=== PATIENT | female | born 1965 | race Caucasian/White ===

== ENCOUNTER 2016-10-30 16:29 | Observation (INO) | payer SELFPAY ==
[~2016-10-30] VITALS: Ht 165.1 cm; Wt 85.7 kg
--- NOTE | 2016-10-30 00:30 | NUR ---
CONSENTS SIGNED FOR D&C IN THE AM AND CYTOTEC GIVEN PER ORDER BY DR. PETTIT.
--- NOTE | 2016-10-30 16:16 | NUR ---
1540-RECD TO ROOM 2512. 1600-TEMP 101.8, PULSE 116, RESP 24, O2 SAT 100%, BP 145/83. 1605-TEMP CALLED TO BENNY DAVILA APRN FOR DR BUTCHER. ORDERS RECD TO SEND PATIENT TO THE ER FOR EVALUATION.
--- NOTE | 2016-10-30 16:18 | NUR ---
1610-PATIENT REPORT CALLED TO ER STAFF. 1615-TO ER PER WHEELCHAIR WITH ARI GARDINER RN.
--- NOTE | 2016-10-30 17:50 | NUR ---
PATIENT TO ROOM AT THIS TIME. ADMITTED AND ASSESSED BY JOYCE ABEL. NO COMPLAINTS AT THIS TIME. CALL LIGHT WITHIN REACH.
[2016-10-30 18:01] VITALS: BP 129/75; Ht 165.1 cm; Wt 85.7 kg
[2016-10-30 18:10] LABS: BASOPHILS 0.2 % (0.0-2.0); EOSINOPHILS 0 % (0-7); HEMATOCRIT 21.7 % (36.0-48.0); IMMATURE GRANULOCYTES 0.3 % (0-5); LYMPHOCYTES 13.6 % (15-50); MCHC 27.2 g/dL (31.0-37.0); MEAN PLATELET VOLUME 10.3 fL (7.4-10.4); MONOCYTES 8.9 % (2-11); PLATELET COUNT 242 10x3/uL (130-400); RBC 3.24 10x6/uL (4.00-5.40); RDW 18.7 % (11.5-14.5); WBC 6.6 10x3/uL (4.8-10.8)
[2016-10-30 18:31] LABS: HEMOGLOBIN 5.9 g/dL (12-16); MCH 18.2 pg (26.0-34.0)
--- NOTE | 2016-10-30 18:45 | NUR ---
PATIENT IV STARTED BY JOYCE ABEL. EXPLAINED TO PATIENT TO FILL BLADDER FOR US. VERBALIZED UNDERSTANDING. NO PROBLEMS AT THIS TIME. CALL LIGHT WITHIN REACH. FAMILY AT BEDSIDE.
--- NOTE | 2016-10-30 19:00 | NUR ---
PATIENT IN BED VISITING WITH FAMILY. AAOX4. RR EVEN AND UNLABORED. 0 S/S OF DISTRESS. O2 @ 2L VIA NC. DENIES PAIN AT THIS TIME. IV TO RIGHT HAND SL WITH NO REDNESS OR SWELLING. SRX1. BED LOW. CALL LIGHT WITHIN REACH.
[2016-10-30 19:19] LABS: APTT 27.9 SECONDS (22.8-39.4)
[2016-10-30 19:21] LABS: INR 1.08 (0.85-1.17); PROTIME 13.8 SECONDS (11.6-15.0)
[2016-10-30 19:43] LABS: % SATURATION 1 % (15-55); IRON 10 ug/dl (35-150); TOTAL IRON BIND CAPACITY 660 ug/dl (260-445)
[2016-10-30 19:44] LABS: UNSAT IRON BIND CAPACITY 650 ug/dl (150-375)
[2016-10-30 20:00] VITALS: BP 121/65
--- NOTE | 2016-10-30 22:00 | NUR ---
PLACED TELEMETRY AND SCD'S ON PATIENT PER ORDER. INITIATED 1ST UNIT PRBC. ALL VITALS WNL. AT THIS TIME.
[2016-10-31 00:28] VITALS: BP 102/60
--- NOTE | 2016-10-31 00:30 | NUR ---
CONSENTS SIGNED FOR D&C IN THE AM AND CYTOTEC GIVEN PER ORDER BY DR. PETTIT.
--- NOTE | 2016-10-31 01:15 | NUR ---
2ND UNIT PRBC INITIATED. ALL VITALS WNL.
--- NOTE | 2016-10-31 01:45 | NUR ---
PATIENT VERY NAUSEATED AND CRAMPING BADLY FROM CYTOTEC. ZOFRAN AND TYLENOL GIVEN PER TELEPHONE ORDER. WILL REASSESS.
--- NOTE | 2016-10-31 03:20 | NUR ---
2ND UNIT PRBC COMPLETE. ALL VITALS WNL. PATIENT STATES THAT NAUSEA AND CRAMPS ARE GONE. NOW RESTING QUIETLY WITH NO COMPLAINTS.
[2016-10-31 06:27] LABS: BASOPHILS 0.2 % (0.0-2.0); EOSINOPHILS 0.2 % (0-7); HEMATOCRIT 25.7 % (36.0-48.0); IMMATURE GRANULOCYTES 0.5 % (0-5); LYMPHOCYTES 12.4 % (15-50); MCH 20.4 pg (26.0-34.0); MCHC 29.6 g/dL (31.0-37.0); MEAN PLATELET VOLUME 10.3 fL (7.4-10.4); MONOCYTES 7.7 % (2-11); PLATELET COUNT 233 10x3/uL (130-400); RBC 3.72 10x6/uL (4.00-5.40); RDW 19.7 % (11.5-14.5); WBC 6.6 10x3/uL (4.8-10.8)
[2016-10-31 06:46] LABS: HEMOGLOBIN 7.6 g/dL (12-16); MCV 69.1 fL (80.0-100.0)
[2016-10-31 06:52] LABS: CALC OSMOLALITY 272 mosm/kg (275-300); CALCIUM 7.9 mg/dL (8.5-10.1); CARBON DIOXIDE 24.3 mmol/L (21.0-32.0); CHLORIDE - SERUM 103 mmol/L (98-107); CREATININE - SERUM 0.8 mg/dL (0.6-1.3); GLUCOSE 122 mg/dL (74-106); POTASSIUM - SERUM 3.6 mmol/L (3.5-5.1); SODIUM 137 mmol/L (136-145); UREA NITROGEN 8 mg/dL (7-18); eGFR NON AFRICAN AMERICAN 81 mL/min (90-120)
--- NOTE | 2016-10-31 07:15 | NUR ---
REPORT RECEIVED FROM CLAIM CLERK NURSE. CALL LIGHT IN REACH.
[2016-10-31 08:09] VITALS: BP 123/68
--- NOTE | 2016-10-31 08:13 | NUR ---
ASSESSMENT COMPLETED. REFUSES SCDs AT THIS TIME. TELEMETRY OFF SO PATIENT CAN TAKE SHOWER. CALL LIGHT IN REACH. WILL CONTINUE WITH PLAN OF CARE.
--- NOTE | 2016-10-31 10:17 | NUR ---
PREOP MEDS ADMINISTERED. CALL LIGHT IN REACH.
[2016-10-31 11:00] VITALS: BP 126/65
--- NOTE | 2016-10-31 11:00 | NUR ---
PRBC INITIATED PER COLTEN JOHNSON. TO OR VIA BED.
--- NOTE | 2016-10-31 11:00 | NUR ---
PT. AOX4 WITH FAMILY IN THE ROOM. RESP. EVEN AND NONLABORED WITH LUNG SOUNDS CLEAR ABD SOFT AND ROUNDED BS+O3BHDAC PT.DENIES NEEDS AT THIS TIME. PT. IN FOR VAGINAL BLEEDING. 1 UNIT PRBC'S STARTED WITHOUT DIFFICULTY AT THIS TIME. OR TEAM HERE TO TAKE PT. TO OR AT THIS TIME.
[2016-10-31] MEDS ORDERED: PERCOCET 5-3251 TAB PO (12:39)
[2016-10-31 12:55] VITALS: BP 134/68
--- NOTE | 2016-10-31 13:00 | NUR ---
RECEIVED TO ROOM 2213 FROM RECOVERY ROOM VIA BED. PRBC UNIT 1 OF TODAY STILL INFUSING. VSS. C/O PAIN TO ABD AND RIGHT SHOULDER. ICE PACK TO RIGHT SHOULDER. WILL GIVE SCHEDULED TORADOL.
[2016-10-31] MEDS ORDERED: PROTONIX40 MG PO (13:32)
--- NOTE | 2016-10-31 14:30 | NUR ---
BLOOD IS FINALLY COMPLETED. VSS.
[2016-10-31 15:40] LABS: HEMATOCRIT 27.9 % (36.0-48.0); HEMOGLOBIN 8.5 g/dL (12-16)
--- NOTE | 2016-10-31 16:51 | NUR ---
DC INSTRUCTIONS EXPLAINED TO AND PATIENT. VERBALIZED UNDERSTANDING. RX FOR PERCOCET HANDED TO PATIENT.
--- NOTE | 2016-10-31 17:00 | NUR ---
DC'D TO VEHICLE VIA WC WITH .
[2016-11-01 09:12] LABS: FOLATE (FOLIC ACID) - SERUM 11.9 ng/mL (>3.0)
--- NOTE | 2016-11-11 12:58 | OP ---
PATIENT NAME: SKYLAR HAMPTON MEDICAL RECORD: [id number] :69 LOCATION:D[id number] ADMISSION DATE:10/30/16 SURGEON: IVETTE FERRARO MD DATE OF OPERATION: 10/31/2016 PREOPERATIVE DIAGNOSES: 1. Abnormal uterine bleeding to anemia requiring blood transfusion. 2. Enlarged fibroid uterus. POSTOPERATIVE DIAGNOSES: 1. Abnormal uterine bleeding to anemia requiring blood transfusion. 2. Enlarged fibroid uterus. SURGEON: Ivette Ferraro MD. ANESTHESIA: Laryngeal mask anesthesia with Dr. Ciaran Pendleton. PROCEDURES: 1. Hysteroscopy with dilation and curettage. 2. Examination under anesthesia. FINDINGS: Uterus palpably at 16-18 cm size with a large posterior fibroid palpable. The uterus was sounded to 14 cm. The large posterior fibroid was pressing into the posterior aspect of the endometrial cavity obscuring entry and visualization. We were able to maneuver around the fibroid to visualize the fundal region, but the tubal ostia were not able to be identified. Fluffy endometrial tissue was noted throughout. Targeted biopsies were taken as well as sharp and suction curettings. PROCEDURE IN DETAIL: After informed consent was given, the patient was taken to the operating room where laryngeal mask anesthesia was placed and found to be adequate. She was placed in a dorsal lithotomy position in [facility]. She was prepped and draped sterilely including a vaginal prep. A Bull catheter was placed into the bladder and bladder drained with clear urine return. A bimanual exam was then performed with findings as listed above. A speculum was then placed into the vagina. The cervix was visualized and grasped anteriorly with a single-tooth tenaculum. A uterine sound was then used to sound the uterus with 14 cm length noted. The cervix was then dilated to approximately 9 mm with serial dilators and a 9-mm operative hysteroscope was then introduced into the uterine cavity. Findings were as listed above. Targeted biopsies were taken through the operative channel and these were passed off the field as specimen. The hysteroscope was then removed and sharp and suction curettage was employed until a gritty texture was noted circumferentially within the endometrial cavity. At this point, the single-tooth tenaculum was removed. Silver nitrate was used at the tenaculum sites with excellent hemostasis noted. The bivalve speculum was removed. The Bull catheter was removed with 200 cc of urine output noted. The patient was returned to a supine position, awakened and taken into the recovery room in stable condition. SPECIMENS: Include: 1. Biopsy of endometrium. 2. Sharp and suction curettings. ESTIMATED BLOOD LOSS: 50 cc. OPERATIVE REPORT [id number] SKYLAR HAMPTON URINE OUTPUT: 200 cc. IV FLUIDS: 200 cc of packed red blood cells (third unit) and 800 cc of crystalloid. COUNTS: Sponge, lap and instrument counts were reported correct times 2. COMPLICATIONS: None. TRANSINT:[id number] Voice Confirmation ID: [id number] DOCUMENT ID: [id number] IVETTE FERRARO MD at 1258 CC: [id number] DICTATION DATE: 10/31/16 1232 RESIDENTIAL TECH: 10/31/162135 DIS IN 10/31/16 [id number] [place] [address]
== END 2016-10-31 17:00 | disposition home or self-care (01) ==
LOC: D.ER 16:29 → D.OPS 16:29 → D.MS 17:20 → OBSVTIME 17:20 → D.MS 10-31 17:00
PROVIDERS: Specialist; ADMIT Family Medicine
DX: D25.9 Leiomyoma of uterus, unspecified (principal); D62 Acute posthemorrhagic anemia; N83.202 Unspecified ovarian cyst, left side

== ENCOUNTER 2016-11-02 11:23 | Inpatient (IN) | payer SELFPAY ==
[2016-11-02] VITALS (32 sets, daily range): BP systolic 72–121; BP diastolic 52–79; BMI 32.9
[~2016-11-02] VITALS: Ht 165.1 cm; Wt 86.1 kg
--- NOTE | ~2016-11-02 | HEMODYNAMI ---
PATIENT:SKYLAR HAMPTON MEDICAL RECORD: [id number] : [birth year] LOCATION:[facility] ADMISSION DATE: 11/02/16 Generatedon:11/14/201610:51 Patient name: SKYLAR HAMPTON Patient #: [id number] SSN: : 1965 Date of study: 11/14/2016 Page: Of Hemodynamic Procedure Report Patient Data Patient Demographics Procedure consent was obtained First Name: SKYLAR Gender: Female Last Name: MEMO : 1965 Middle Initial: NIRALI Harris Age: 51 year(s) Patient #: [id number] Race: Unknown Additional ID: [id number] Contact details [address]: [address] [place] [address] State: [place] City: [place] Zip code: [address] Past Medical History Allergies: No known allergies Admission Admission Data Admission Date: 11/02/2016 Admission Time: 12:54 Room #: D.2223 Weight (lbs.): 189 Weight (kg.): 85.73 Procedure Procedure Types Cath Procedure Peripheral Cath Diagnostic Procedure Cath Peripheral Venography IVC/SVC Inferior Venacava Filter Procedure Description Procedure Date Procedure Date: 11/14/2016 Procedure Start Time: 10:21 Procedure Staff Name Function Josh Greene MD Performing Physician Raúl Tovar RT Scrub Anjelica Christopher RN Nurse Alka Donohue RT Tourism Radio Presenter Alka Donohue RT Monitor Procedure Data Cath Procedure Fluoroscopy Diagnostic fluoroscopy Total fluoroscopy Time: 3.9 time: 3.9 min min Diagnostic fluoroscopy Total fluoroscopy dose: 214 dose: 214 mGy mGy Contrast Material Contrast Material Type Amount (ml) Isovue 300 95 Diagnostic catheters Device Type Used For End Catheter Placement Merit ULTRA BOLUS FLUSH 5Fr 65CM catheter Procedure Medications Medication Administration Route Dosage Oxygen NC 3 l/min Lidocaine 1% added to field 20 Heparin Flush Bag added to field 2 bags (1000units/500ml NS) Versed I.V. 1 mg Fentanyl I.V. 50 mcg Versed I.V. 1 mg Fentanyl I.V. 50 mcg Versed I.V. 1 mg Hemodynamics Rest Heart Rate: 93 (bpm) Snapshots Pre Cath Intra NCS Post Cath Vital Signs Time Heart Resp SPO2 NIBP (mmHg) Rhythm Pain Sedation Rate (ipm) (%) Status Level (bpm) 10:10:22 97 21 100 120/77(99) NSR 0 (11) 10(A) , No pain 10:14:42 92 29 96 118/69(84) NSR 0 (11) 10(A) , No pain 10:19:02 93 26 95 118/69(88) NSR 0 (11) 10(A) , No pain 10:23:20 91 19 95 115/70(85) NSR 0 (11) 9(A) , No pain 10:27:34 90 26 97 117/75(90) NSR 0 (11) 9(A) , No pain 10:31:52 90 29 96 117/69(90) NSR 0 (11) 9(A) , No pain 10:36:06 88 21 98 116/70(86) NSR 0 (11) 9(A) , No pain 10:40:18 87 27 96 113/67(86) NSR 0 (11) 9(A) , No pain 10:44:34 88 30 97 110/70(84) NSR 0 (11) 9(A) , No pain 10:48:48 88 33 100 125/77(101) NSR 0 (11) 9(A) , No pain Medications Time Medication Route Dose Verified Delivered Reason Notes Effe ctiveness by by 10:12:35 Oxygen NC 3 Anjelica Anjelica Per l/min King COLTEN Christopher RN protocol 10:12:44 Lidocaine 1% added 20ml Anjelica Anjelica for local to vial King COLTEN Christopher RN anesthetic field 10:12:54 Heparin Flush added 2 Anjelica Anjelica used for Bag to bags King COLTEN Christopher marriage performer (1000units/500ml field NS) 10:18:41 Versed I.V. 1 mg Anjelica Anjelica for King COLTEN Christopher RN sedation 10:18:48 Fentanyl I.V. 50 Anjelica Anjelica for mcg King COLTEN Christopher RN sedation 10:23:38 Versed I.V. 1 mg Anjelica Anjelica for King COLTEN Christopher RN sedation 10:23:43 Fentanyl I.V. 50 Anjelica Anjelica for mcg King COLTEN Christopher RN sedation 10:35:01 Versed I.V. 1 mg Anjelica Anjelica for King COLTEN Christopher RN sedation Procedure Log Time Note 9:34:40 Patient Weight : 189 kg 9:35:15 Use device set IR Diagnostic 9:35:16 Sterile Angiographic Pack opened to sterile field. 9:35:17 Bag Decanter opened to sterile field. 9:35:18 Acist Manifold opened to sterile field. 9:35:19 Acist Hand Control opened to sterile field. 9:35:20 Acist Syringe opened to sterile field. 9:35:33 NeoPhotonics DOC .035 guide wire opened to sterile field. 9:35:34 Micropuncture VSI 4FR kit opened to sterile field. 9:35:47 Bard DORIE JUGULAR Vena Cava Filter opened to sterile field. 9:51:29 TUBING, CONTRAST INJCTN HI PRES opened to sterile field. 9:51:36 - 9:59:00 Time tracking: Regular hours 10:08:48 Plan of Care:Hemodynamics will remain stable., Cardiac rhythm will remain stable., Comfort level will be maintained., Respiratory function will remain adequate., Patient/ family verbilizes understanding of procedure., Procedure tolerated without complication., Recovers from procedure without complications.. 10:09:01 Patient received from Med/Surg to IR Alert and oriented. Tansferred to table in Supine position. 10:09:02 Correct patient and procedure confirmed by team. 10:09:04 Signed procedure consent form obtained from patient. 10:09:06 ECG and BP/O2 sat monitors applied to patient. 10:09:07 Vital chart was started 10:09:09 Baseline sample Acquired. 10:09:12 Full Disclosure recording started 10:09:13 - 10:09:19 H&P Date Dictated: 11/14/2016 Within 30 days and on chart.. 10:09:23 Pre-procedure instructions explained to patient. 10:09:24 Pre-op teaching completed and patient verbalized understanding. 10:09:28 Family in waiting room. 10:09:39 Patient NPO since Midnight. 10:09:56 Patient allergic to No known allergies 10:10:04 Is the patient allergic to Iodine/contrast media? No. 10:10:08 Is patient on blood thinner?Yes 10:10:16 Patient diabetic? No. 10:10:18 - 10:10:21 ----Pre-sedation anethsthesia assessment.---- 10:10:25 Previous problem with sedation/anesthesia? No ? 10:10:33 Snore? Yes 10:10:36 Sleep apnea? No 10:10:38 Deviated septum? No 10:10:41 Opens mouth fully? Yes 10:10:43 Sticks out tongue? Yes 10:10:49 Airway obstruction? No ? 10:10:55 Dentures? No ? 10:11:06 IV patent on arrival in left forearm with 0.9% NaCl at [facility]. 10:11:16 Right neck area was prepped with chlora-prep and draped in sterile fashion 10:11:21 Alarms reviewed by R. N. 10:11:22 Sharps counted by scrub and verified by R.N. 10:11:23 - 10:12:35 Oxygen 3 l/min NC was administered by Anjelica Christopher RN; Per protocol; 10:12:44 Lidocaine 1% 20ml vial added to field was administered by Anjelica Christopher RN; for local anesthetic; 10:12:54 Heparin Flush Bag (1000units/500ml NS) 2 bags added to field was administered by Anjelica Christopher RN; used for procedure; 10:18:05 --------ALL STOP TIME OUT------ 10:18:05 Physician arrived 10:18:06 Final Timeout: patient, procedure, and site verified with staff and physician. All members of the team are in agreement. 10:18:16 Right neck site verified by team. 10:18:21 Physical assessment completed. ASA score P 3 - A patient with severe systemic disease as per Anjelica Christopher RN. 10:18:27 Sedation plan: IV Moderate Sedation Versed, Fentanyl, Lidocaine 10:18:41 Versed 1 mg I.V. was administered by Anjelica Christopher RN; for sedation; 10:18:48 Fentanyl 50 mcg I.V. was administered by Anjelica Christopher RN; for sedation; 10:21:11 Procedure started. 10:21:18 Local anesthetic to right IJ vein with Lidocaine 1% by Josh Greene MD.INITIAL ACCESS ONLY 10:21:34 A YourMechanic ULTRA BOLUS FLUSH 5Fr 65CM catheter was advanced over the wire and used for . 10:21:46 St Hema 5FR Sheath opened to sterile field. 10:23:38 Versed 1 mg I.V. was administered by Anjelica Christopher RN; for sedation; 10:23:43 Fentanyl 50 mcg I.V. was administered by Anjelica Christopher RN; for sedation; 10:25:15 Venous access obtained using ultrasound guidance. 10:26:41 Terumo 5FR ANGLED 65CM glide catheter opened to sterile field. 10:34:27 Terumo 5FR COBRA 65CM glide catheter opened to sterile field. 10:35:01 Versed 1 mg I.V. was administered by Anjelica Christopher RN; for sedation; 10:40:21 [place] Sci AMPLATZ Super stiff 180cm guide wire opened to sterile field . 10:45:41 [place] Jugular IVC filter was placed below renal veins. 10:48:25 Procedure ended.(Physican Out) 10:48:29 Fluoroscopy time 03.90 minutes. 10:48:33 Fluoroscopy dose: 214 mGy 10:48:33 Flurop Dose total: 214 10:48:38 Contrast amount:Isovue 300 95ml. 10:48:40 Sharps counted by scrub and verified by R.NMaryann 10:50:38 Procedure and supply charges have been captured, reviewed, submitted an d are correct. 10:51:19 Vital chart was stopped Device Usage Item Name Manufacture Quantity Catalog Number Hospital Part Current Min imal Lot# / Charge Number Stock Stock Serial# Code Sterile Cardinal 1 [id number] 5 Angiographic Health Pack Bag Decanter Microtek 1 [id number] 60718 735232 5 Medical Inc. Acist Acist 1 51200 134925 102584 533659 5 Manifold Medical Systems Inc Acist Hand Acist 1 24800 426241 664285 754372 5 Control Medical Systems Inc Acist Syringe Acist 1 84130 366243 679843 155445 20 Medical Systems Inc Cook DOC .035 Cook Medical 1 [id number] 078684 205501 5 [id number] guide wire Micropuncture VSI VASCULAR 1 [id number] 336289 345498 5 VSI 4FR kit SOLUTIONS Bard DORIE Bard 1 [id number] 594683 863525 869764 5 [id number] JUGULAR Vena Cava Filter TUBING, Merit 1 [id number] 098000 437545 888823 5 CONTRAST Medical INJCTN HI PRES Merit ULTRA Merit 1 [id number] 998806 533110 5 BOLUS FLUSH Medical 5Fr [address]CM catheter [address] Hema 5FR St Hema 1 657130 745206 870447 5 [id number] Sheath Terumo 5FR Terumo 1 CG507 728841 974556 5 ANGLED 65CM glide catheter Terumo 5FR Terumo 1 CG502 806888 057393 5 COBRA 65CM glide catheter [place] Sci [place] 1 [id number] 499652 407452 5 AMPLATZ Super Scientific stiff 180cm guide wire Signature Audit [place] Stage Time Signature Unsigned Intra-Procedure 11/14/2016 Alka Donohue 10:51:16 AM RT(R) Signatures Monitor : Alka Donohue RT Signature : Date : Time : [facility] [address] [address]
[~2016-11-02 11:23] MED LIST: PERCOCET 5-3251 TAB PO; PROTONIX40 MG PO
[2016-11-02 12:02] LABS: HEMATOCRIT 31.1 % (36.0-48.0); HEMOGLOBIN 9.1 g/dL (12-16); MCH 21.9 pg (26.0-34.0); MCHC 29.3 g/dL (31.0-37.0); MCV 74.9 fL (80.0-100.0); MEAN PLATELET VOLUME 10.6 fL (7.4-10.4); PLATELET COUNT 204 10x3/uL (130-400); RBC 4.15 10x6/uL (4.00-5.40); RDW 22.1 % (11.5-14.5); WBC 23.9 10x3/uL (4.8-10.8)
[2016-11-02 12:18] LABS: ALBUMIN 2.3 g/dL (3.4-5.0); ANION GAP 20.3 mmol/L (8-16); BILIRUBIN - TOTAL 1.06 mg/dL (0.2-1.3); CARBON DIOXIDE 17.6 mmol/L (21.0-32.0); CREATININE - SERUM 1.7 mg/dL (0.6-1.3); POTASSIUM - SERUM 3.9 mmol/L (3.5-5.1); PROTEIN - SERUM 7.3 g/dL (6.4-8.2)
[2016-11-02 12:20] LABS: APTT 33.4 SECONDS (22.8-39.4); INR 1.36 (0.85-1.17); PROTIME 16.7 SECONDS (11.6-15.0)
[2016-11-02 12:24] LABS: LYMPHOCYTES 12 % (15-50); MONOCYTES 1 % (2-11); NEUTROPHILS 83 % (40-80); PLATELET ESTIMATE NORMAL
[2016-11-02 13:04] LABS: TROPONIN-I 1.518 ng/mL (0.000-0.060)
[2016-11-02 13:07] LABS: D-DIMER-QUANTITATIVE > 20.00 ug/mLFEU (0.20-0.54)
--- NOTE | 2016-11-02 13:30 | NUR ---
ARRIVED TO ICU ROOM 2306 VIA STRECTHER FROM ER. MOVED TO BED VIA 4 STAFF. AWAKE, ALERT AND ORIENTED. LEFT AC IV PRESENT WITH HEPARIN INFUSING, PTT ORDERED FOR 1830. 1500 2ND IV PLACED TO RIGHT AC.
--- NOTE | 2016-11-02 13:31 | NUR ---
Patient Name: SKYLAR DAVIS Admission Status: ER Accout number: [id number] Admission Date: 11-02-2016 : 1965 Admission Diagnosis: Bilat pulmonary embolus Attending: DARCIE Current LOS: 1 Anticipated DC Date: 11-05-2016 Planned Disposition: Home Primary Insurance: UNINSURED DISCOUNT PLAN Discharge Planning Comments: Cm met with patient and family to complete initial discharge planning assessment. Patient/family gave consent to complete assessment. Patient lives at home with her spouse and is independent in her care at home. She does not use assistive devices or community resources. Patient plans to return home with spouse at discharge. CM will continue to follow and assist with dc plan/needs. Special Deputy Sheriff: Saima Stock RN, [facility] [phone] Is the patient Alert and Oriented? Yes 0 * PCP Dr. Mike 0 * Pharmacy [facility] 0 * Preadmission Environment Home with Family 0 * ADLs Independent 0 * Equipment None 0 * List name and contact numbers for known caregivers / representatives who currently or will assist patient after discharge: Len Davis - spouse - [phone] * Community resources currently utilized None 0 * Additional services required to return to the preadmission environment? No 0 * Can the patient safely return to the preadmission environment? Yes 0 * Has this patient been hospitalized within the prior 30 days at any hospital? Yes
--- NOTE | 2016-11-02 18:34 | HP ---
PATIENT: SKYLAR HAMPTON MEDICAL RECORD: [id number] ACCOUNT: [id number] LOCATION:[facility] D.2306 : [birth year] ADMISSION DATE: 11/02/16 HISTORY AND PHYSICAL EXAMINATION HISTORY OF PRESENT ILLNESS: Ms. Hampton is a 51-year-old white female, who presents to the Emergency Room with shortness of breath. She just came in few days ago with menorrhagia requiring transfusion and D&C. 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 She underwent a D&C by Dr. Ferraro on Thursday. Yesterday, she began noticing some swelling in her left leg, presents to the ER today where a CT was performed, which reveals a large saddle embolus. She is brought in the ICU. Her heart rate is in the 120s. She is hypotensive. Dr. Yanes is also seeing her after she is probably going to need thrombolytics. PAST MEDICAL HISTORY: Significant for iron deficiency anemia for over 10 years. She has not been taking her iron. Dr. Dasilva was her previous OBGYN. She has not seen him for several years. She has also had a tubal ligation in the past. PAST SURGICAL HISTORY: Significant for D&C approximately 2 days ago. ALLERGIES: None known. HOME MEDICATIONS: Pantoprazole for recently diagnosed GERD, some pain medication and iron supplementation. FAMILY HISTORY: Mother had a blood clot and colon cancer. SOCIAL HISTORY: The patient does not smoke or drink. She is . She has been very healthy her entire life. REVIEW OF SYSTEMS: She denies any fever. She denies feeling chest pain, more fatigue and shortness of breath. She denies any recent change in bladder or bowel habits. She still spotting a little bit from her D&C the other day, but this is minimal. PHYSICAL EXAMINATION: GENERAL: She is ill in appearance. She is in no distress at this time. She is mildly tachypneic. HEENT: Head is normocephalic. NECK: Soft and supple. HEART: Regular and tachycardic. LUNGS: With some diminishment of breath sounds bilaterally. ABDOMEN: Soft. LOWER EXTREMITIES: There is some swelling of the left lower leg. NEUROLOGIC: Without any gross focal deficits. IMPRESSION: 1. Saddle embolism. 2. Recent acute blood loss requiring transfusion secondary to menorrhagia. 3. Status post D&C p.o. daily ____. PLAN: Admit to ICU. Consult Dr. Yanes, appreciate his help. Thrombolytics, get a stat echo. Discussed at length risks, benefits associated with thrombolytics. Prognosis is guarded. HISTORY AND PHYSICAL [id number] MEMOSKYLAR TRANSINT:[id number] Voice Confirmation ID: [id number] DOCUMENT ID: [id number] LILIYA BUTCHER DO at 1834 CC: [id number] DICTATION DATE: 11/02/16 1508 CHIEF CRUISER: 11/02/16 1612 ADM IN [facility] [address] [place] [address]
--- NOTE | 2016-11-02 19:00 | NUR ---
REPORT RECEIVED AND ASSESSMENT COMPLETED. SEE FLOWSHEET. INSTRUCTED BY DR RODGERS TO KEEP TPA ON UNIT FOR PT. PT HAS SADDLE CLOT. HR 109. B/P 111/74. O2 SAT 98%. TPA OBTAINED FROM NEEDLEMAKER. WILL MONITOR CLOSELY FOR CHANGES THROUGHOUT THE NIGHT.
--- NOTE | 2016-11-02 21:00 | NUR ---
DR MCINTYRE, AND DR GARCIA AT BEDSIDE. DISCUSSED PROCEDURES TO BE IN PLACE SHOULD AN EMERGENCY HAPPEN IN PT ROOM. DR GARCIA DISCUSSED PLAN WITH DR RODGERS VIA TELEPHONE. PT REMAINS STABLE AT THE MOMENT. WILL CONTINUE TO MONITOR.
--- NOTE | 2016-11-02 23:00 | NUR ---
REASSESSMENT COMPLETED. SEE FLOWSHEET FOR FULL DETAILS.
[2016-11-03] VITALS (24 sets, daily range): BP systolic 104–154; BP diastolic 56–87; Ht 165.1 cm; Wt 86.1 kg
[2016-11-03 01:00] LABS: HEMATOCRIT 28.4 % (36.0-48.0); HEMOGLOBIN 8.7 g/dL (12-16); MCH 21.9 pg (26.0-34.0); MCHC 30.6 g/dL (31.0-37.0); RBC 3.98 10x6/uL (4.00-5.40); RDW 22.6 % (11.5-14.5)
--- NOTE | 2016-11-03 01:00 | NUR ---
NO CHANGES AT THIS TIME. PT REMAINS STABLE. WILL CONTINUE TO MONITOR CLOSELY.
[2016-11-03 01:05] LABS: MCV 71.4 fL (80.0-100.0); PLATELET COUNT 125 10x3/uL (130-400); WBC 11.7 10x3/uL (4.8-10.8)
[2016-11-03 05:14] LABS: BASOPHILS 0.1 % (0.0-2.0); EOSINOPHILS 0 % (0-7); HEMATOCRIT 26.6 % (36.0-48.0); IMMATURE GRANULOCYTES 0.4 % (0-5); LYMPHOCYTES 9.9 % (15-50); MCH 21.6 pg (26.0-34.0); MCHC 30.1 g/dL (31.0-37.0); MCV 71.7 fL (80.0-100.0); MONOCYTES 5.3 % (2-11); NEUTROPHILS 84.3 % (40-80); PLATELET COUNT 137 10x3/uL (130-400); RBC 3.71 10x6/uL (4.00-5.40); RDW 22.8 % (11.5-14.5); WBC 11.2 10x3/uL (4.8-10.8)
[2016-11-03 05:23] LABS: APTT 45.6 SECONDS (22.8-39.4); INR 1.36 (0.85-1.17); PROTIME 16.6 SECONDS (11.6-15.0)
[2016-11-03 05:47] LABS: BILIRUBIN - TOTAL 0.6 mg/dL (0.2-1.3); CALCIUM 7.2 mg/dL (8.5-10.1); CREATININE - SERUM 1.3 mg/dL (0.6-1.3); MAGNESIUM - SERUM 1.8 mg/dL (1.8-2.4); PHOSPHOROUS 3.8 mg/dL (2.5-4.9); POTASSIUM - SERUM 4.3 mmol/L (3.5-5.1); PROTEIN - SERUM 6.4 g/dL (6.4-8.2)
[2016-11-03 05:49] LABS: ANION GAP 14.1 mmol/L (8-16); CARBON DIOXIDE 24.2 mmol/L (21.0-32.0); TROPONIN-I 1.747 ng/mL (0.000-0.060)
--- NOTE | 2016-11-03 10:56 | NUR ---
DR DENNIS HAS BEEN IN TO SEE PATIENT. REVIEWED TREATMENT WITH PATIENT. SHE ASKED FOR SOMETHING TO HELP HER GET UP WHAT SHE KEEPS TRYING TO COUGH UP. SAID WOULD GET HER AN ORDER FOR MUCINEX.
--- NOTE | 2016-11-03 11:49 | NUR ---
ALTEPASE INFUSION COMPLETE. HEPARIN DRIP RESTARTED.
[2016-11-03 13:58] LABS: BASOPHILS 0.1 % (0.0-2.0); EOSINOPHILS 0 % (0-7); HEMATOCRIT 26.6 % (36.0-48.0); IMMATURE GRANULOCYTES 0.3 % (0-5); LYMPHOCYTES 7.1 % (15-50); MCH 21.4 pg (26.0-34.0); MCHC 30.1 g/dL (31.0-37.0); MCV 71.3 fL (80.0-100.0); MEAN PLATELET VOLUME 10.4 fL (7.4-10.4); MONOCYTES 4.9 % (2-11); NEUTROPHILS 87.6 % (40-80); PLATELET COUNT 140 10x3/uL (130-400); RBC 3.73 10x6/uL (4.00-5.40); WBC 13.8 10x3/uL (4.8-10.8)
[2016-11-03 14:08] LABS: INR 1.43 (0.85-1.17); PROTIME 17.4 SECONDS (11.6-15.0)
[2016-11-03 14:10] LABS: APTT 73.7 SECONDS (22.8-39.4)
--- NOTE | 2016-11-03 15:18 | NUR ---
PT RUNNING 101.3 TEMP ORAL. REMOVED BLANKET, PROVIDED PT WITH COOL WET WASH CLOTH FOR HER HEAD AND TURNED DOWN TEMP IN ROOM. WILL MONITOR.
--- NOTE | 2016-11-03 16:00 | NUR ---
SPOKE WITH DR DENNIS ABOUT PT ELEVATION IN TEMP. WANTS BLOOD CULTURES, URINE CULTURE, FLU SWAB AND TYLENOL 325 Q4PRN FEVER.
--- NOTE | 2016-11-03 18:14 | NUR ---
FAMILY AT BEDSIDE FOR 6PM VISITATION. PT ON 2L NC. SATS MAINTAINED 96-97% EVEN WHILE CONVERSING.
--- NOTE | 2016-11-03 19:32 | NUR ---
REPORT RECIEVED. ASSESSMENT COMPLETE PER FLOW SHEET. VSS. NO NEW CHANGES. WILL CONTINUE TO MONITOR
--- NOTE | 2016-11-03 21:00 | NUR ---
PTT REVIEWED NO CHANGES NEEDED. WILL CONTINUE TO MONITOR.
--- NOTE | 2016-11-03 21:16 | NUR ---
NO FAMILY AT THIS TIME. PT RESTING COMFORTABLY. DENIES PAIN OR NEEDS. WILL CONTINUE TO MONITOR.
[2016-11-04] VITALS (29 sets, daily range): BP systolic 125–175; BP diastolic 63–95
--- NOTE | 2016-11-04 00:07 | NUR ---
REASSESSMENT COMPLETEPER FLOW SHEET. VSS. NO NEW CHANGES AT THIS TIME. RESTING COMFORTABLY. WILL CONTINUE TO MONITOR.
--- NOTE | 2016-11-04 01:16 | NUR ---
GIVEN FAN PER REQUEST. DENIES FURTHER NEEDS. NO NEW FINDINGS.
--- NOTE | 2016-11-04 03:37 | NUR ---
REASSESSMENT COMPLETE PER FLOW SHEET. VSS. NO NEW CHANGES. WILL CONTINUE TO MONITOR.
[2016-11-04 04:50] LABS: BASOPHILS 0.1 % (0.0-2.0); EOSINOPHILS 0.1 % (0-7); HEMATOCRIT 24.6 % (36.0-48.0); IMMATURE GRANULOCYTES 0.4 % (0-5); MCH 21.5 pg (26.0-34.0); MCHC 30.1 g/dL (31.0-37.0); MCV 71.5 fL (80.0-100.0); MONOCYTES 6.1 % (2-11); NEUTROPHILS 85.3 % (40-80); PLATELET COUNT 155 10x3/uL (130-400); RBC 3.44 10x6/uL (4.00-5.40); RDW 23.3 % (11.5-14.5); WBC 14.4 10x3/uL (4.8-10.8)
[2016-11-04 04:52] LABS: HEMOGLOBIN 7.4 g/dL (12-16)
[2016-11-04 04:55] LABS: APTT 67.3 SECONDS (22.8-39.4); INR 1.26 (0.85-1.17); PROTIME 15.7 SECONDS (11.6-15.0)
[2016-11-04 04:57] LABS: CALC OSMOLALITY 273 mosm/kg (275-300); CALCIUM 7.1 mg/dL (8.5-10.1); CARBON DIOXIDE 24.9 mmol/L (21.0-32.0); CHLORIDE - SERUM 103 mmol/L (98-107); CREATININE - SERUM 0.8 mg/dL (0.6-1.3); GLUCOSE 108 mg/dL (74-106); POTASSIUM - SERUM 3.4 mmol/L (3.5-5.1); SODIUM 137 mmol/L (136-145); UREA NITROGEN 11 mg/dL (7-18); eGFR NON AFRICAN AMERICAN 81 mL/min (90-120)
--- NOTE | 2016-11-04 05:05 | NUR ---
REPOSITIONED UP IN BED FOR COMOFORT. DENIES FURTHER NEEDS.
--- NOTE | 2016-11-04 05:07 | NUR ---
PTT REVIEWED. NO CHANGE NEEDED AT THIS TIME.
--- NOTE | 2016-11-04 07:00 | NUR ---
PT REPORT REC'D, PT CARE ASSUMED. PT SITTING UP IN BED AAOX4, NO C/O PAIN, C/O "HAVING THIS STUFF STUCK IN MY THROAT I CAN'T COUGH IT UP, MAYBE SOMETHING WARM WILL HELP BREAK IT UP?" WARM TEA GIVEN PER PT REQUEST. VSS, 2LNC. WHEEZING AUSCULTATED BILAT UPPER LOBES. LEFT AC PIV WITH FLUIDS INFUSING, SEE FLOW SHEET. ALLEN CATHETER FREE OF KINKS WITH PEACE URINE RETURN TO GRAVITY. SHIFT ASSESSMENT COMPLETED, SEE FLOW SHEET. ROOM FREE OF CLUTTER, CALL LIGHT IN REACH, BED LOCKED IN LOWEST POSITION. WILL CONTINUE TO MONITOR PT.
--- NOTE | 2016-11-04 09:23 | NUR ---
PT FAMILY AT THE BEDSIDE, ALL QUESTIONS ANSWERED, VSS, WILL CONTINUE TO MONITOR PT.
--- NOTE | 2016-11-04 10:00 | NUR ---
COMPLETE BED BATH AND LINEN CHANGE. PT TOLERATED WELL, VSS, WILL CONTINUE TO MONITOR PT.
--- NOTE | 2016-11-04 11:00 | NUR ---
PT SITTING UP IN BED, NO C/O PAIN, VSS. REASSESSMENT COMPLETED, SEE FLOW SHEET. ROOM FREE OF CLUTTER, CALL LIGHT IN REACH, WILL CONTINUE TO MONITOR PT.
--- NOTE | 2016-11-04 12:09 | NUR ---
PT FAMILY AT THE BEDSIDE, ALL QUESTIONS ANSWERED,VSS, WILL CONTINUE TO MONITOR PT.
[2016-11-04 12:17] LABS: ACLA - IGG AB <9 GPL U/mL (0-14); ACLA - IGM AB 20 MPL U/mL (0-12)
--- NOTE | 2016-11-04 13:48 | NUR ---
CONTACTED DR. BENITO'S OFFICE TO INFORM OF CONSULT, SPOKE WITH BRET AND GAVE CONSULT INFORMATION.
--- NOTE | 2016-11-04 13:59 | NUR ---
DR. BENITO AT THE BEDSIDE
[2016-11-04 14:23] LABS: ANA REFLEX - ANTICHROMATIN ABS 0.2 AI (0.0-0.9); ANA REFLEX - CENTROMERE B ABS <0.2 AI (0.0-0.9); ANA REFLEX - DBL STRANDED DNA 3 IU/mL (0-9); ANA REFLEX - DIRECT Positive (Negative); ANA REFLEX - JO-1 AB <0.2 AI (0.0-0.9); ANA REFLEX - RNP ANTIBODIES <0.2 AI (0.0-0.9); ANA REFLEX - SCL-70 <0.2 AI (0.0-0.9); ANA REFLEX - SJOGRENS AB SSA >8.0 AI (0.0-0.9); ANA REFLEX - SJOGRENS AB SSB >8.0 AI (0.0-0.9); ANA REFLEX - SMITH AB 0.2 AI (0.0-0.9)
--- NOTE | 2016-11-04 14:25 | NUR ---
BEGAN INFUSING PRBC UNIT, WILL CONTINUE TO MONITOR PT,
--- NOTE | 2016-11-04 15:00 | NUR ---
PT FAMILY AT THE BEDSIDE, ALL QUESTIONS ANSWERED, VSS. REASSESSMENT COMPLETED, SEE FLOW SHEET. ROOM FREE OF CLUTTER, CALL LIGHT IN REACH, WILL CONTINUE TO MONITOR PT.
--- NOTE | 2016-11-04 18:02 | NUR ---
PT FAMILY AT THE BEDSIDE, ALL QUESTIONS ANSWERED, VSS, WILL CONTINUE TO MONITOR PT.
--- NOTE | 2016-11-04 19:30 | NUR ---
RECEIVED PT TO ROOM CV7. PT ACCOMPANIED BY SPOUSE. TRANSFERRED FROM ICU BED TO CVICU BED WITH MINIMAL ASSIST. CONNECTED TO STANDARD ICU MONITORS AND ALL ALARMS SET. PT ORIENTATED TO ROOM AND SPOUSE GIVEN CONTACT INFORMATION.
--- NOTE | 2016-11-04 20:15 | NUR ---
PT WITH INCREASED RESP 24-26. SPO2 92-93%. O2 APPLIED AT 2L N/C
--- NOTE | 2016-11-04 21:00 | NUR ---
AT BEDSIDE. QUESTIONS ANSWERED
--- NOTE | 2016-11-04 21:15 | NUR ---
20G IV SITED TO R AC X 1 ATTEMPT. IV FLUIDS CONNECTED TO THIS SITE. PT TOLERATED WELL. LAB AT BEDSIDE FOR PTT DRAW
--- NOTE | 2016-11-04 23:00 | NUR ---
SHIFT REASSESSMENT COMPLETED. NO SIGNIFICANT CHANGES. HEPARIN GTT ADJUSTED PER SLIDING SCALE, INCREASED BY 100U/HR.
[2016-11-05] VITALS (24 sets, daily range): BP systolic 114–138; BP diastolic 65–80
--- NOTE | 2016-11-05 01:00 | NUR ---
PT RESTING WELL, RESP REG AND NONLABORED. SOMEWHAT INCREASED RESPIRATIONS.
--- NOTE | 2016-11-05 03:00 | NUR ---
SHIFT REASSESSMEB=NT COMPLETED. SEE FLOWSHEET. ONLY SCANT VAGINAL DISCHARGE. PT REMAINS ON 2L O2 WITH RESP IN THE 20'S DENIES SOB. ENCOURAGED TO TCDB. PT ABLE TO DEMONSTRATE EFFECTIVLY. NOTE FEWER WHEEZES THAN EARLIER.
--- NOTE | 2016-11-05 05:00 | NUR ---
PHLBOTOMIST AT BEDSIDE FOR AM LAB INCLUDING PTT FOR HEPARIN ADMINISTRATION. F/C CARE DONE WITH SURE STEP SYSTEM PER PROTOCOL
[2016-11-05 05:36] LABS: BASOPHILS 0.1 % (0.0-2.0); EOSINOPHILS 0.2 % (0-7); HEMATOCRIT 29.4 % (36.0-48.0); IMMATURE GRANULOCYTES 0.8 % (0-5); LYMPHOCYTES 9.7 % (15-50); MCH 23.2 pg (26.0-34.0); MCHC 31.3 g/dL (31.0-37.0); MONOCYTES 6.9 % (2-11); NEUTROPHILS 82.3 % (40-80); PLATELET COUNT 168 10x3/uL (130-400); RBC 3.97 10x6/uL (4.00-5.40); RDW 22.5 % (11.5-14.5); WBC 13.4 10x3/uL (4.8-10.8)
[2016-11-05 05:38] LABS: HEMOGLOBIN 9.2 g/dL (12-16); MCV 74.1 fL (80.0-100.0)
[2016-11-05 05:46] LABS: APTT 47.1 SECONDS (22.8-39.4); INR 1.14 (0.85-1.17); PROTIME 14.5 SECONDS (11.6-15.0)
[2016-11-05 06:19] LABS: ALBUMIN 1.6 g/dL (3.4-5.0); BILIRUBIN - TOTAL 0.7 mg/dL (0.2-1.3); CALCIUM 7.5 mg/dL (8.5-10.1); CARBON DIOXIDE 29.4 mmol/L (21.0-32.0); PROTEIN - SERUM 6.3 g/dL (6.4-8.2)
[2016-11-05 06:20] LABS: ANION GAP 10.6 mmol/L (8-16); TROPONIN-I 0.271 ng/mL (0.000-0.060)
[2016-11-05 06:39] LABS: C-REACTIVE PROTEIN 37.3 mg/dL (0.0-0.9)
--- NOTE | 2016-11-05 07:15 | NUR ---
REPORT RECIEVED FROM ENERGY DERIVATIVES TRADER NURSE. PT RESTING IN BED QUIETLY. NO S/SX OF ACUTE DISTRESS NOTED AT THIS TIME. ASSSESSMENT COMPLETE PER FLOWSHEET. CALL LIGHT IN REACH. BED IN LOW POSITION. WILL CONTINUE TO ASSESS FOR CHANGES THROUGHOUT SHIFT.
--- NOTE | 2016-11-05 09:00 | NUR ---
FAMILY AT BEDSIDE. UPDATE PROVIDED.
[2016-11-05 10:20] LABS: PROTEIN S - FREE 74 % (57-157); PROTEIN S - FUNCTIONAL 69 % (63-140); PROTEIN S - TOTAL 111 % (60-150)
--- NOTE | 2016-11-05 11:15 | NUR ---
REPOSITIONED FOR COMFORT. CALL LIGHT PLACED IN REACH. DENIES NEEDS AT THIS TIME.
[2016-11-05 11:19] LABS: MITOCHONDRIAL ANTIBODY 5.7 Units (0.0-20.0)
--- NOTE | 2016-11-05 12:18 | NUR ---
NUTRITION MONITORING & EVAL CHART REVIEWED, PT VISIT. PT REPORTS TOLERATING FULL LIQUID DIET. NO COMPLAINTS. PT INQUIRING ~ DIET ADVANCEMENT. INFORMED PT THAT NURSING/MD WOULD ADDRESS. RD FOLLOWING
--- NOTE | 2016-11-05 13:30 | NUR ---
PT WALKING PT. WALKED 250FT WITH MINIMAL ASSIST.
--- NOTE | 2016-11-05 13:56 | NUR ---
FULL LINEN CHANGE PROVIDED. BED BATH GIVEN. ASSISTED TO RECLINER.
--- NOTE | 2016-11-05 15:00 | NUR ---
FAMILY AT BEDSIDE. UPDATE PROVIDED.
--- NOTE | 2016-11-05 19:15 | NUR ---
REPORT RECEIVED CARE ASSUMED. INITIAL SHIFT ASSESSMENT COMPLETED SEE FLOWSHEET. PT AMBULATED TO BR TO VOID. GAIT STEADY. DENIES ANY DIZZINESS OR LIGHTHEADEDNESS. SPO2 94-95% ON RA. PT BEING MONITORED PER STANDARD ICU PROTOCOL WITH ALL ALARMS VERIFIED AND SET. ALL LINES NOTED TO BE CURRENT DATED AND LABELED
--- NOTE | 2016-11-05 21:00 | NUR ---
SPOUSE AT BEDSIDE TO VISIT. PT UPDATED HIM
--- NOTE | 2016-11-05 23:00 | NUR ---
SHIFT REASSESSMENT COMPLETED. PT WITH NO SIGNIFICANT CHANGES. DID PLACE O2 BACK ON PT WHO WAS SATING 89% ON RA WHILE SLEEPING. OR AT 2 L N/CC RESUMED. PILLOWS USED FOR SUPPORT AND TO RELIEVE PRESSURE. ARMS ELEVATED ON PILLOW AND HEELS FLOATED. PT IS ABLE TO MOVE SELF FROM SIDE TO SIDE BUT REQUIRES ASSISTANCE WHEN SHE WORKS HERSELF DOWN IN THE BED AND NEEDS TO BE MOVED UP.
[2016-11-06] VITALS (23 sets, daily range): BP systolic 89–153; BP diastolic 53–82
--- NOTE | 2016-11-06 01:00 | NUR ---
PT SLEEPING WELL. RESP REG AND NONLABORED ALTHOUGH SOMEWHAT TACHYEPNIC AT TIMES. SPO2 REMAINS IN HIGH 90'S ON 2L N/C. CALL LIGHT IN REACH
--- NOTE | 2016-11-06 03:00 | NUR ---
SHIFT REASSEMENT PER FLOWSHEET. NO SIGNIFICANT CHANGES
[2016-11-06 03:09] LABS: ANTITHROMBIN III ACTIVITY 72 % (75-135); PLASMINOGEN ACTIVITY 27 % (70-150)
--- NOTE | 2016-11-06 05:00 | NUR ---
PT DOING WELL. RESP REG AND NONLABORED. DENIES NEEDS
--- NOTE | 2016-11-06 06:00 | NUR ---
SPOUSE AT BEDSIDE PT UPDATING HIM
[2016-11-06 06:15] LABS: PROTEIN C - ANTIGEN 36 % (60-150); PROTEIN C - FUNCTIONAL 52 % (73-180)
[2016-11-06 06:20] LABS: BASOPHILS 0.2 % (0.0-2.0); EOSINOPHILS 0.8 % (0-7); HEMATOCRIT 29.2 % (36.0-48.0); HEMOGLOBIN 8.9 g/dL (12-16); IMMATURE GRANULOCYTES 0.7 % (0-5); LYMPHOCYTES 13.7 % (15-50); MCH 22.6 pg (26.0-34.0); MCHC 30.5 g/dL (31.0-37.0); MCV 74.1 fL (80.0-100.0); MONOCYTES 8.3 % (2-11); NEUTROPHILS 76.3 % (40-80); RBC 3.94 10x6/uL (4.00-5.40); RDW 22.9 % (11.5-14.5); WBC 10.8 10x3/uL (4.8-10.8)
[2016-11-06 06:22] LABS: PLATELET COUNT 214 10x3/uL (130-400)
[2016-11-06 06:30] LABS: INR 1.1 (0.85-1.17); PROTIME 14.1 SECONDS (11.6-15.0)
[2016-11-06 06:42] LABS: ALBUMIN 1.7 g/dL (3.4-5.0); BILIRUBIN - TOTAL 0.67 mg/dL (0.2-1.3); CALCIUM 7.8 mg/dL (8.5-10.1); CARBON DIOXIDE 32.6 mmol/L (21.0-32.0); CREATININE - SERUM 0.9 mg/dL (0.6-1.3); MAGNESIUM - SERUM 1.8 mg/dL (1.8-2.4); PROTEIN - SERUM 6.7 g/dL (6.4-8.2)
[2016-11-06 06:43] LABS: ANION GAP 9.4 mmol/L (8-16)
[2016-11-06 06:51] LABS: C-REACTIVE PROTEIN 26.5 mg/dL (0.0-0.9)
--- NOTE | 2016-11-06 07:15 | NUR ---
ASSESSMENT COMPLETE. AAO X4. DENIES PAIN. EXPIRATORY WHEEZES IN RUL, RML, EMA. DIMINISHED IN LLL, RLL. 2L NC. HAS TO CATCH HER BREATH AFTER EVERY COUPLE SENTENCES. S1S2 NOTED, RADIAL AND PEDAL PULSES PALP. NSR 90'S. ACTIVE BOWEL SOUNDS X4. NO WEAKNESS OR EDEMA. STABLE ON FEET. USES BEDSIDE COMMOADE. RAC, LAC PATENT, SEE IV FLOWSHEET. RT SHOULD PIV INFILTRATED, REMOVED WITH CATH INTACT. FOR OTHER ASSESSMENT FINDINGS SEE FLOWSHEET
--- NOTE | 2016-11-06 08:55 | NUR ---
PT AT BEDSIDE
--- NOTE | 2016-11-06 09:05 | NUR ---
FAMILY AT BEDSIDE. UPDATE PROVIDED. DENIES FURTHER NEEDS
--- NOTE | 2016-11-06 10:47 | NUR ---
DR. DENNIS AT BEDSIDE.
--- NOTE | 2016-11-06 11:15 | NUR ---
REASSESSMENT COMPLETE. SEE FLOWSHEET FOR DETAILS. MINIMAL CHANGES.
[2016-11-06 12:17] LABS: HEXAGONAL PHASE PHOS 15 sec (0-11); LUPUS - INTERPRETATION Comment: (()); LUPUS - THROMBIN TIME 24.4 sec (0.0-20.9); LUPUS - dRVVT CONFIRMATION 1.1 ratio (0.8-1.2); PTT-LA 85.1 sec (0.0-43.6); PTT-LA MIX 75.1 sec (0.0-40.6)
--- NOTE | 2016-11-06 13:02 | NUR ---
INCREASING HEPARIN INFUSION BY 200U/HR AND GIVING 3000 UNIT BOLUS PER PROTOCOL
--- NOTE | 2016-11-06 13:10 | NUR ---
WASHED PATIENT'S HAIR IN SINK WITH SHAMPOO AND CONDITIONER. TOLERATED WELL. PUT BACK IN CHAIR.
--- NOTE | 2016-11-06 15:15 | NUR ---
REASSESSMENT COMPLETE, SEE FLOWSHEET FOR DETAILS. ORDERED ENSURE FOR PATIENT, SAYS SHE HAS DECREASED APPETITE
[2016-11-06 17:12] LABS: FACTOR II DNA ANALYSIS Negative (())
--- NOTE | 2016-11-06 17:15 | NUR ---
DENIES NEEDS. TOOK PATIENT DINNER TRAY
--- NOTE | 2016-11-06 19:00 | NUR ---
REPORT RECEIVED, PATIENT CARE ASSUMED. ASSESSMENT COMPLETED PER FLOW SHEETS. PT ALERT AND ORIENTED X4, ST ON CM WITH HR AT 104. LUNG SOUNDS SCATERD WHEEZING TO ULB WITH DIMINISHED TO LLB, LABORED WITH RR AT 34, ON RA.ENCOUREGED TO TAKE SLOW DB, OXIGEN PROVIDED VIA HIGH FLOW AT 3L. O2 SAT 97%. RR TO 28. RT AC PIV INTACT INFUSING HEPARIN PER ORDER, VIA PUMP. PPP. CALL LIGHT IN REACH. BED IN LOW POSITION AND LOCKED. WILL CONT TO MONITOR.
--- NOTE | 2016-11-06 19:30 | NUR ---
REMOVED PIV FROM LEFT AC, CATH TIP INTACT. RESITED #22G CATH TO LEFT FA. PT CIPRIANO WELL.
--- NOTE | 2016-11-06 21:00 | NUR ---
NO VISITORS AT THIS TIME. SCHEDULED MEDS GIVEN. PT CIPRIANO WELL. VSS. CPOC
--- NOTE | 2016-11-06 23:00 | NUR ---
REASSESSMENT COMPLETED. SEE FLOW SHEETS FOR ALL FINDINGS. NO ACUTE SINGS OF DISTRESS NOTED. VSS. NO NEEDS VOICES AT THIS TIME. CALL LIGHT AND BST IN REACH. WILL CONT TO MONITOR.
[2016-11-07] VITALS (23 sets, daily range): BP systolic 119–157; BP diastolic 63–83
--- NOTE | 2016-11-07 01:39 | NUR ---
ASSISTED TO BATHROOM. ABEBE CARE AND GOWN CHANGES PER PATIENT. LINEN CHANGED. PT CIPRIANO WELL. VSS. CALL LIGHT IN REACH.CPOC.
--- NOTE | 2016-11-07 03:00 | NUR ---
REASSESSMENT COMPLETED. SEE FLOW SHEETS FOR ALL FINDINGS. ASSISTED TO BATHROOM. PT CIPRIANO WELL. VSS. BACK TO BED. REPOSITIONED SELF IN BED. CALL LIGHT IN REACH. CPOC.
[2016-11-07 03:47] LABS: BASOPHILS 0.3 % (0.0-2.0); EOSINOPHILS 2.2 % (0-7); HEMATOCRIT 30.7 % (36.0-48.0); HEMOGLOBIN 9.3 g/dL (12-16); IMMATURE GRANULOCYTES 0.9 % (0-5); MCH 22.6 pg (26.0-34.0); MCHC 30.3 g/dL (31.0-37.0); MCV 74.7 fL (80.0-100.0); MONOCYTES 9.4 % (2-11); NEUTROPHILS 68.2 % (40-80); PLATELET COUNT 278 10x3/uL (130-400); RBC 4.11 10x6/uL (4.00-5.40); RDW 23.7 % (11.5-14.5); WBC 10.1 10x3/uL (4.8-10.8)
[2016-11-07 04:04] LABS: ALBUMIN 1.8 g/dL (3.4-5.0); ANION GAP 8.2 mmol/L (8-16); BILIRUBIN - TOTAL 0.69 mg/dL (0.2-1.3); CALCIUM 8.3 mg/dL (8.5-10.1); CARBON DIOXIDE 33.3 mmol/L (21.0-32.0); CREATININE - SERUM 0.9 mg/dL (0.6-1.3); POTASSIUM - SERUM 3.5 mmol/L (3.5-5.1); PROTEIN - SERUM 7.2 g/dL (6.4-8.2)
[2016-11-07 04:05] LABS: C-REACTIVE PROTEIN 21.5 mg/dL (0.0-0.9)
[2016-11-07 04:16] LABS: INR 1.23 (0.85-1.17); PROTIME 15.4 SECONDS (11.6-15.0)
[2016-11-07 04:17] LABS: APTT 64.9 SECONDS (22.8-39.4)
--- NOTE | 2016-11-07 05:00 | NUR ---
PT RESTING QUIETLY,NO SIGNS OF DISTRESS, VSS
--- NOTE | 2016-11-07 07:20 | NUR ---
PT SLEEPING. NO DISTRESS NOTED. AWAKENED WHEN TAKING TEMPERATURE. TEMP 99.8 AXILLARY. DID NOT SLEEP WELL, ASKS TO HOLD BREAKFAST AND ALLOW HER TO REST.
--- NOTE | 2016-11-07 08:21 | NUR ---
Pt awake, requests breakfast tray now. Says didn't sleep well last night from all her coughing, medication was given to help her sleep that has left her groggy this morning.
--- NOTE | 2016-11-07 09:14 | NUR ---
Pt expresses concern about going home and having coughing spell and not being able to catch her breath. Questions whether she may need oxygen when she is discharged home.
--- NOTE | 2016-11-07 09:30 | NUR ---
Family at bedside for visitation at this time.
--- NOTE | 2016-11-07 10:41 | NUR ---
Nutrition Follow Up: Pt reported that she is not hungry. She said that she will try to eat more but just does not have an appetite. Pt agreed to Ensure with meals and prefers chocolate and vanilla flavors. Food preferences noted. Pt is eating 30% meal avg on a regular diet. I>O. +BM 11/05/16. Wt loss 10# since admit. Pt with poor po intake - not meeting est nutritional needs. Rec continue current diet. Will send Ensure with meals. Will honor food preferences. RD following.
--- NOTE | 2016-11-07 10:49 | NUR ---
Pt assisted up to toilet. 400ml urine output. Had small amount of blood in basin upon urinating that came from vagina. No fresh blood noted on tissue. Pt in chair at bedside after toileting. call light in reach.
--- NOTE | 2016-11-07 12:03 | NUR ---
Pt sitting up in chair at bedside. Lunch tray has been provided. Family at bedside.
--- NOTE | 2016-11-07 12:34 | NUR ---
ELDERLY VISITOR CAME OUT TO DESK AND ASKED FOR US TO ADJUST THE THERMOSTAT IN THE ROOM. "IT IS ENTIRELY TOO COLD IN THERE, AND I'M WORRIED ABOUT HER PNEUMONIA." PT IS IN CHAIR WITH A SHEET COVERAGE AND HAS DENIED NEEDS FOR CHANGE. SHE HAD ME REMOVE HER BLANKETS AND EXCESS PILLOWS BECAUSE SHE WAS TOO HOT THIS MORNING. THE TEMP IN THE ROOM IS CURRENTLY 70 DEGREES.
--- NOTE | 2016-11-07 13:44 | NUR ---
Pt requesting bath. Asks that the temp in the room be brought up just a bit while she is bathing.
--- NOTE | 2016-11-07 14:20 | NUR ---
IV AT RIGHT AC LEAKING. ABX ARE COMPLETE ON LEFT FOREARM. Y-SITED THE HEPARIN TO THE NS LINE UNTIL A NEW PERIPHERAL IV CAN BE SITED.
--- NOTE | 2016-11-07 14:45 | NUR ---
PT ASSISTED UP TO TOILET. 400 ML URINE OUT. NO BM.
--- NOTE | 2016-11-07 15:00 | NUR ---
FAMILY AT BEDSIDE FOR VISITATION.
--- NOTE | 2016-11-07 16:16 | NUR ---
UNABLE TO GET ANOTHER PERIPHERAL IV STARTED.
--- NOTE | 2016-11-07 16:20 | NUR ---
SPOKE WITH DR DENNIS. ASKED FOR PICC LINE TO BE PLACED. PICC LINE NURSE HAS ALREADY GONE FOR THE WEEKEND. WANTS PATIENT STARTED ON LOVENOX 1MG/KG Q12H. ONCE LOVENOX STARTED, D/C HEPARIN DRIP.
--- NOTE | 2016-11-07 17:34 | NUR ---
PT ASKED FOR TEMP TO BE TAKEN. SAYS SHE FELT LIKE SHE MIGHT BE RUNNING FEVER. AXILLARY TEMP IS 101.1
--- NOTE | 2016-11-07 18:14 | NUR ---
FAMILY AT BEDSIDE. HAVE BROUGHT HOMEMADE SOUP FOR PATIENT.
--- NOTE | 2016-11-07 19:56 | NUR ---
PT ASSISTED UP TO TOILET. 500 ML URINE OUTPUT. STILL NO BM. PT ASKS TO WALK BEFORE GOING BACK TO HER BED. WALKED FROM HER ROOM TO THE FAMILY WAITING DOOR AND THEN DOWN TO AREA OUTSIDE OF ROOM 2 AND BACK TO HER BED. NO DISTRESS NOTED. MONITOR EQUIPMENT PLACED ON PT. BED LOW. CALL LIGHT IN REACH.
--- NOTE | 2016-11-07 20:30 | NUR ---
REPORT RECEIVED AND CARE ASSUMED. LYING IN BED RESTING QUIETLY. ASSESSMENT COMPLETED PER FLOW SHEET. NO VOICED NEEDS. HOB UP. CALL LIGHT IN EASY REACH. BED IN LOW POSITION. WILL CONTINUE TO MONITOR.
--- NOTE | 2016-11-07 20:45 | NUR ---
PATIENT WAS OFFERED A BATH,BUT SHE WANTED TO WAIT UNTIL TOMMOROW.
--- NOTE | 2016-11-07 21:00 | NUR ---
FAMILY VISITING AT BEDSIDE. ASSISTED BY FAMILY WITH ORAL CARE.
--- NOTE | 2016-11-07 23:00 | NUR ---
ASSISTED WITH AMBULATING TO BATHROOM.. VOIDED 400 CC PINK-TINGED URINE. NO BM.
[2016-11-08] VITALS (18 sets, daily range): BP systolic 113–141; BP diastolic 58–78
--- NOTE | 2016-11-08 00:30 | NUR ---
O2 PLACED AT 2L/NC DUE TO INCRESED RESPIRATION RATE.
[2016-11-08 06:49] LABS: BASOPHILS 0.1 % (0.0-2.0); EOSINOPHILS 2.9 % (0-7); HEMATOCRIT 29.7 % (36.0-48.0); HEMOGLOBIN 8.9 g/dL (12-16); IMMATURE GRANULOCYTES 1.8 % (0-5); LYMPHOCYTES 14.5 % (15-50); MCH 22.5 pg (26.0-34.0); MCV 75.2 fL (80.0-100.0); MEAN PLATELET VOLUME 11.1 fL (7.4-10.4); MONOCYTES 9.7 % (2-11); RBC 3.95 10x6/uL (4.00-5.40); RDW 24.9 % (11.5-14.5); WBC 9.5 10x3/uL (4.8-10.8)
[2016-11-08 06:50] LABS: PLATELET COUNT 374 10x3/uL (130-400)
[2016-11-08 07:11] LABS: CALC OSMOLALITY 275 mosm/kg (275-300); CALCIUM 8.3 mg/dL (8.5-10.1); CARBON DIOXIDE 28.8 mmol/L (21.0-32.0); CHLORIDE - SERUM 103 mmol/L (98-107); CREATININE - SERUM 0.8 mg/dL (0.6-1.3); GLUCOSE 120 mg/dL (74-106); POTASSIUM - SERUM 3.8 mmol/L (3.5-5.1); SODIUM 139 mmol/L (136-145); eGFR NON AFRICAN AMERICAN 81 mL/min (90-120)
[2016-11-08 07:12] LABS: UREA NITROGEN 5 mg/dL (7-18)
[2016-11-08 07:23] LABS: APTT 45.7 SECONDS (22.8-39.4)
[2016-11-08 07:25] LABS: INR 2.95 (0.85-1.17)
--- NOTE | 2016-11-08 08:01 | NUR ---
ASSISTED PT TO TOILET AT THIS TIME VIA STAND BY ASSIST. NO ACUTE DISTRESS NOTED. PT DENEIS ANY NEEDS. CONTINENT VOID, 500ML NOTED PEACE IN COLOR. WILL CONTINUE PLAN OF CARE.
--- NOTE | 2016-11-08 09:27 | NUR ---
UP IN BED VISITING WITH VISITOR. NO ACUTE DISTRESS NOTED. WILL CONTINUE PLAN OF CARE.
--- NOTE | 2016-11-08 11:00 | NUR ---
1100 REASSESSMENT PERFORMED. NO CHANGE.
--- NOTE | 2016-11-08 11:58 | NUR ---
SPOKE WITH DR DENNIS, NOTED ORDER THAT IF INR IS AT OR ABOVE 2.9 THEN TO STOP LOVENOX AND DECREASE COUMADIN DOSE FROM 10MG TO 5MG. ALSO NOTED THAT PT CAN BE TRANSFERRED TO FLOOR. WILL PLACE ORDERS.
--- NOTE | 2016-11-08 13:21 | NUR ---
UP IN CHAIR BESIDE BED AT THIS TIME. DENEIS ANY NEEDS. NO ACUTE DISTRESS NOTED. WILL CONTINUE PLAN OF CARE.
--- NOTE | 2016-11-08 14:26 | NUR ---
UP IN BED RESTING AT THIS TIME. NO ACUTE DISTRESS NOTED. RESPIRATIONS AT STEADY AND UNLABORED RATE. AWAKENS EASILY WHEN STAFF STATES PT NAME. WILL CONTINUE PLAN OF CARE.
--- NOTE | 2016-11-08 15:16 | NUR ---
Vancomycin trough 35.3 from today is incorrect. The dose was given before the trough was drawn. Ordered another trough 3-25 at 2300.
--- NOTE | 2016-11-08 15:29 | NUR ---
FAMILY IN ROOM AT THIS TIME WASHING PT HAIR. NO ACUTE DISTRESS NOTED. WILL CONTINUE PLAN OF CARE.
--- NOTE | 2016-11-08 17:02 | NUR ---
UP IN BED AWAKE AT THIS TIME EATING SUPPER. DENIES ANY NEEDS. NO ACUTE DISTRESS NOTED. WILL CONTINUE PLAN OF CARE.
--- NOTE | 2016-11-08 17:28 | NUR ---
NOTED PT TO GO TO ROOM 2223. WILL CALL REPORT SHORTLY.
--- NOTE | 2016-11-08 17:35 | NUR ---
CALLED REPORT TO RECIEVING NURSE AT THIS TIME TO ROOM 2223. WILL TRANSFER PT SHORTLY.
--- NOTE | 2016-11-08 18:00 | NUR ---
TRANSFERRED AT THIS TIME TO 2223 VIA WHEELCHAIR ACCOMPANIED BY HOSPITAL STAFF AND FAMILY. ALL PERSONAL ITEMS TAKEN WITH PT TO NEW ROOM. NO ACUTE DISTRESS NOTED. NO FURTHER ACTIONS.
--- NOTE | 2016-11-08 20:55 | NUR ---
PT UP TO BATHROOM AT THIS TIME-AD ELVIRA. 300CC DARK URINE.
--- NOTE | 2016-11-08 22:36 | NUR ---
PT RESTING QUIETLY, AT BED SIDE. NO S/S OF DISTRESS NOTED. CALL LIGHT IN REACH. WILL CONTINUE TO MONITOR.
[2016-11-09] VITALS: BP 124/64
[2016-11-09 04:00] VITALS: BP 139/68
--- NOTE | 2016-11-09 04:00 | NUR ---
PATIENT SLEEPING WITH NO DISTRESS NOTED. CALL LIGHT WITHIN REACH.
[2016-11-09 05:00] LABS: BASOPHILS 0.2 % (0.0-2.0); EOSINOPHILS 2.1 % (0-7); IMMATURE GRANULOCYTES 1.1 % (0-5); MCH 22.4 pg (26.0-34.0); MCV 74.6 fL (80.0-100.0); MONOCYTES 6.6 % (2-11); PLATELET COUNT 417 10x3/uL (130-400); RBC 4.02 10x6/uL (4.00-5.40); RDW 25.1 % (11.5-14.5)
[2016-11-09 05:10] LABS: APTT 46.6 SECONDS (22.8-39.4); PROTIME 35.9 SECONDS (11.6-15.0)
[2016-11-09 05:13] LABS: ANION GAP 14.5 mmol/L (8-16); CALCIUM 7.7 mg/dL (8.5-10.1); CARBON DIOXIDE 27.1 mmol/L (21.0-32.0); CREATININE - SERUM 0.9 mg/dL (0.6-1.3); POTASSIUM - SERUM 3.6 mmol/L (3.5-5.1)
[2016-11-09 05:23] LABS: INR 3.55 (0.85-1.17)
--- NOTE | 2016-11-09 07:20 | NUR ---
AWAKE ALERT COLOR ADQ SKIN WARM AND DRY IV CONT AT 25CC/HR/LEFT WRIST SITE CLEAN AND DRY WITHOUT REDDNESS OR EDEMA NOTD.
--- NOTE | 2016-11-09 09:15 | NUR ---
MEDS GIVEN CIPRIANO WELL AT PRESENT REMAINS AT BEDSIDE.
[2016-11-09 09:44] VITALS: BP 120/73
--- NOTE | 2016-11-09 10:30 | NUR ---
AMB IN HALLWAY WITH CIPRIANO WELL AT PRESENT N/C OR SHORTNESS OF BREATH.
[2016-11-09 11:11] VITALS: BP 148/78
--- NOTE | 2016-11-09 12:06 | NUR ---
VISITORS AT BEDSIDE AT PRESENT DENIES ANY NEEDS AT THIS TIME.
--- NOTE | 2016-11-09 14:35 | NUR ---
FAMILY AT BEDSIDE AT PRESENT.
[2016-11-09 15:50] VITALS: BP 140/69
[2016-11-09 20:32] VITALS: BP 138/69
--- NOTE | 2016-11-09 20:39 | NUR ---
PATIENT COMPLAINING OF PAIN TO LEFT SIDE OF TONGUE. LARGE WHITE PATCHES NOTED TO TONGUE AND BOTTOM LIP. RED AND INFLAMED. PATIENT STATES ITS TOO PAINFUL TO EAT AND DRINK. PETROLEUM REFINING FIRER NOTIFIED AND REFUED PERMISSION TO CALL MD FOR ORDERS. WILL INFORM DAYSHIFT TO GET ORDERS IN AM.
--- NOTE | 2016-11-09 22:14 | NUR ---
KATELYN SURPERVISOR RECEIVED ORDER FOR NYSTATIN FOR PATIENT. MEDICATION GIVEN. PATIENT THANKFUL. NO OTHER NEEDS VOICED AT THIS TIME.
--- NOTE | 2016-11-10 01:11 | NUR ---
RESTING WITH EYES CLOSED, RESP WITH EASE, NO DISTRESS NOTED, CL IN REACH
[2016-11-10 04:00] VITALS: BP 145/79
[2016-11-10 05:49] LABS: HEMATOCRIT 31.5 % (36.0-48.0); HEMOGLOBIN 9.4 g/dL (12-16); MCH 22.3 pg (26.0-34.0); MCHC 29.8 g/dL (31.0-37.0); MCV 74.8 fL (80.0-100.0); MEAN PLATELET VOLUME 11.1 fL (7.4-10.4); RBC 4.21 10x6/uL (4.00-5.40); RDW 25.4 % (11.5-14.5); WBC 8.1 10x3/uL (4.8-10.8)
[2016-11-10 06:11] LABS: INR 3.69 (0.85-1.17); PROTIME 37.1 SECONDS (11.6-15.0)
--- NOTE | 2016-11-10 07:50 | NUR ---
WALKING ROUNDS,WITHOUT DISTRESS.ASSESSMENT PER FLOW SHEET.PT DENIES PAIN AT PRESENT.CALL LIGHT IN REACH.
[2016-11-10 08:09] VITALS: BP 126/72
--- NOTE | 2016-11-10 09:52 | NUR ---
UP IN CHAIR,WITHOUT DISTRESS.FAMILY IN ROOM.CALL LIGHT IN REACH.
[2016-11-10 11:40] VITALS: BP 162/48
[2016-11-10 11:52] LABS: ALBUMIN 1.9 g/dL (3.4-5.0); ALKALINE PHOSPHATASE 239 U/L (46-116); ALT (SGPT) 149 U/L (10-68); BILIRUBIN - TOTAL 0.44 mg/dL (0.2-1.3); CALC OSMOLALITY 274 mosm/kg (275-300); CALCIUM 7.7 mg/dL (8.5-10.1); CARBON DIOXIDE 24.1 mmol/L (21.0-32.0); CHLORIDE - SERUM 102 mmol/L (98-107); CREATININE - SERUM 0.8 mg/dL (0.6-1.3); GLUCOSE 110 mg/dL (74-106); PROTEIN - SERUM 6.6 g/dL (6.4-8.2); SODIUM 138 mmol/L (136-145); UREA NITROGEN 7 mg/dL (7-18); eGFR NON AFRICAN AMERICAN 81 mL/min (90-120)
--- NOTE | 2016-11-10 12:00 | NUR ---
HAS REMAINED WITHOUT DISTRESS. AT BEDSIDE.CALL LIGHT IN REACH
[2016-11-10 15:32] VITALS: BP 139/76
--- NOTE | 2016-11-10 18:36 | NUR ---
REMAINS WITHOUT NEEDS,WITHOUT CHANGE.CONT PLAN OF CARE
[2016-11-10 20:00] VITALS: BP 171/81
--- NOTE | 2016-11-10 20:00 | NUR ---
ASSESSMENT PER FLOWSHEET. IV PATENT LEFT ARM OF NS AT 25CC'S/HR.SITE CLEAR. HOB UP 35 DEGREES. SR UP X2 CALL LIGHT WITHIN REACH. BRUISES NOTED TO RT ARM AND RT CHEEK. AND TO RT HIP AREA.
[2016-11-10 20:16] LABS: APPEARANCE CLEAR (CLEAR); BILIRUBIN NEGATIVE (NEGATIVE); COLOR YELLOW (YELLOW); GLUCOSE NEGATIVE (NEGATIVE); KETONE NEGATIVE (NEGATIVE); LEUKOCYTE ESTERASE NEGATIVE (NEGATIVE); NITRITE NEGATIVE (NEGATIVE); PROTEIN NEGATIVE (NEGATIVE); SPECIFIC GRAVITY 1.015 (1.005-1.020)
[2016-11-10 20:17] LABS: BACTERIA FEW /hpf (NONE SEEN); EPITHELIAL CELLS 0-5 /hpf (0-5); RED CELLS - URINE 0-5 /hpf (0-5); WHITE CELLS - URINE 0-5 /hpf (0-5)
--- NOTE | 2016-11-10 21:30 | NUR ---
MEDS GIVEN RI MAR.
--- NOTE | 2016-11-11 | NUR ---
UP AD ELVIRA VOIDS FREELY
--- NOTE | 2016-11-11 02:03 | NUR ---
TEMP CHECKED AT PT'S REQUEST READS 100.7. TYLENOL 325MG PO TAB ONE GIVEN FOR TEMP MEASURES AND PT'S REQUEST.
[2016-11-11 04:00] VITALS: BP 132/73
--- NOTE | 2016-11-11 04:19 | NUR ---
EYES CLOSED RESPIRATIONS WITH EASE AND UNLABORED.
[2016-11-11 04:59] LABS: BASOPHILS 0.1 % (0.0-2.0); EOSINOPHILS 2.1 % (0-7); HEMATOCRIT 30.9 % (36.0-48.0); HEMOGLOBIN 9.2 g/dL (12-16); IMMATURE GRANULOCYTES 1.3 % (0-5); LYMPHOCYTES 14.4 % (15-50); MCH 22.3 pg (26.0-34.0); MCHC 29.8 g/dL (31.0-37.0); MEAN PLATELET VOLUME 10.3 fL (7.4-10.4); MONOCYTES 11.5 % (2-11); NEUTROPHILS 70.6 % (40-80); PLATELET COUNT 542 10x3/uL (130-400); RBC 4.12 10x6/uL (4.00-5.40); RDW 25.2 % (11.5-14.5); WBC 7.1 10x3/uL (4.8-10.8)
[2016-11-11 05:03] LABS: INR 3.48 (0.85-1.17); PROTIME 35.4 SECONDS (11.6-15.0)
[2016-11-11 05:44] LABS: ALBUMIN 1.7 g/dL (3.4-5.0); BILIRUBIN - TOTAL 0.53 mg/dL (0.2-1.3); CALCIUM 7.9 mg/dL (8.5-10.1); CARBON DIOXIDE 25.2 mmol/L (21.0-32.0); CREATININE - SERUM 0.9 mg/dL (0.6-1.3); PROTEIN - SERUM 7.2 g/dL (6.4-8.2)
[2016-11-11 05:48] LABS: ANION GAP 12.1 mmol/L (8-16); POTASSIUM - SERUM 3.3 mmol/L (3.5-5.1)
--- NOTE | 2016-11-11 06:30 | NUR ---
K+ LEVEL =3.3 POTASSIUM 40 MEQ GIVEN IN JUICE PER YOLI.
[2016-11-11 07:10] LABS: MAGNESIUM - SERUM 2.2 mg/dL (1.8-2.4); PHOSPHOROUS 3.5 mg/dL (2.5-4.9)
[2016-11-11 08:12] VITALS: BP 132/77
--- NOTE | 2016-11-11 09:51 | NUR ---
PATIENT SITTING UP ON SIDE OF BED ALERT. NO SIGNS OF DISTRESS NOTED. BED IN LOW POSITION. CALL LIGHT IN REACH.
[2016-11-11 11:29] LABS: POTASSIUM - SERUM 3.8 mmol/L (3.5-5.1); VANCOMYCIN - TROUGH 14.8 ug/mL (10.0-20.0)
[2016-11-11 11:50] VITALS: BP 126/72
--- NOTE | 2016-11-11 14:13 | NUR ---
NUTRITION MONITORING & EVAL CHART REVIEWED, PT VISIT. TOLERATING REG DIET BUT PO INTAKE REMAINS POOR. PT STATES THAT "NOTHING SOUNDS GOOD". ENCOURAGED PT TO WRITE IN PREFERENCES ON MENU. INFORMED PT THAT SNACKS WERE AVAILABLE ON THE FLOOR. RD FOLLOWING
--- NOTE | 2016-11-11 14:37 | EC ---
PATIENT:SKYLAR HAMPTON DATE OF SERVICE: 11/02/16 SEX: F MEDICAL RECORD: [id number] DATE OF : [birth year] LOCATION:[facility] AGE OF PATIENT: 51 ADMISSION DATE: 11/02/16 REFERRING PHYSICIAN: INTERPRETING PHYSICIAN: MEGAN PUENTES MD ECHOCARDIOGRAM REPORT ECHO CHARGES 4 ECHO COMPLETE CLINICAL DIAGNOSIS: CHECK EF / BILATERAL PE'S ECHOCARDIOGRAPHIC MEASUREMENTS (adult normal given) AC root (d.<3.7cm) 3.1 LV Septum d (<1.2 cm> 1.5 Valve Excursion 1.3 LV Septum (systole) 1.6 Left Atria (s.<4.0cm> 4.2 LVPW d(<1.2cm) 1.4 RV (d.<2.3cm) 4.7 LVPW (sytole) 1.66 LV diastole(<5.6CM) 3.9 MV E-F(>70mm/sec) LV systole 2.5 LVOT Diameter 1.6 MV exc.(>10mm) 1.4 Est.ejection fraction (50-75%) Pericardial Effusion N DOPPLER: LVIT A 59.0 E 35.0 LA RVSP 37 LVOT 70 AOP1/2T Asc. Ao 174 RVOT 62 RA PA 103 AV Gradient Peak 12.13 AV Mean 7.05 AV Area 2.0 MV Gradient Peak 2.21 MV Mean 0.96 MV Area COMMENTS: Telecommunications Consultant: Prakash BRICEÑO Aviation Electronic Warfare Operator:Nicole Valdez TAPE# PACS DATE OF SERVICE: 11/02/2016 Echocardiogram FINDINGS: 1. Left ventricular chamber size is within normal limits. Left ventricular systolic function is normal. Overall ejection fraction estimated at 55%. 2. Left atrium is enlarged at 4.2 cm. Right atrium and right ventricular chamber sizes are moderately dilated. There is mild decrease in RV function compared to LV function as well. ECHOCARDIOGRAM REPORT [id number] SKYLAR HAMPTON 3. Doppler interrogation reveals only moderate tricuspid regurgitation, no other valvular insufficiency or stenosis. Pulmonary systolic pressure is estimated at 37 mmHg. 4. No evidence of pericardial effusion or left ventricular thrombus. TRANSINT:[id number] Voice Confirmation ID: [id number] DOCUMENT ID: [id number] MEGAN PUENTES MD at 1437 CC: [id number] DICTATION DATE: 11/03/16 1205 ASSEMBLER TRACTOR: 11/03/16 1414 ADM IN [facility] [address] [id number]
--- NOTE | 2016-11-11 14:37 | CN ---
PATIENT NAME:SKYLAR HAMPTON MEDICAL RECORD: [id number] : 69 LOCATION:D.[id number] ADMIT DATE: 11/02/16 ACCOUNT: [id number] CONSULTING PHYSICIAN: MEGAN PUENTES MD REFERRING PHYSICIAN: LILIYA BUTCHER DO DATE OF CONSULTATION: 11/03/2016 DIAGNOSES: 1. Bilateral pulmonary emboli with saddle emboli, status post thrombolytics. 2. History of D&C for menorrhalgia due to fibroids. 3. Anemia due to fibroids. 4. Acute kidney injury. 5. Positive troponin. HISTORY OF PRESENT ILLNESS: This is a 51-year-old female who presents with shortness of breath, no chest pain, no EKG changes, has positive troponin, but also found to have bilateral pulmonary emboli along with saddle emboli. She is receiving thrombolytic therapy for the pulmonary emboli. No cardiac history. PHYSICAL EXAMINATION: GENERAL APPEARANCE: Well-nourished, well-developed, appears stated age. Level of distress, comfortable. PSYCHIATRIC: Mental status, alert, normal affect. Orientation, oriented to time, place and person. EYES: Lids and conjunctiva, noninjected. No discharge, no pallor. ENT: Lips, teeth, gums, normal dentition. Oropharynx, no cyanosis, no pallor. NECK: Carotid arteries, bilateral normal upstroke, no bruits, no thrills. JUGULAR VEINS: No jugular venous pressure or distention. CERVICAL LYMPH NODES: Nontender, nonenlarged. THYROID: Not enlarged. Nontender. No nodules. LUNGS: Respiratory effort, unlabored. CHEST: Normal curvature. No thoracic deformity. No chest wall tenderness. Percussion, resonant. Auscultation, clear. No wheezes, no rales, no rhonchi. CARDIOVASCULAR: Precordial exam, nondisplaced. No heaves or pericardial thrills. Rate and rhythm, regular. Heart sounds, normal S1, normal S2. No S3, no gallop, no rub. Systolic murmur, not heard. Diastolic murmur, not heard. EXTREMITIES: No cyanosis, no edema. Peripheral pulses, full and equal in all extremities, except as noted. No bruits appreciated. ABDOMEN: Soft, nondistended. Normal aorta. No bruit. Nontender. No masses. Liver, nontender, no hepatomegaly. Spleen, nontender, no splenomegaly. MUSCULOSKELETAL: No joint tenderness. No joint swelling. No erythema. NEUROLOGICAL: Normal gait, normal strength, normal tone. SKIN: Warm and dry. REVIEW OF SYSTEMS: The patient reports easy bruising but reports no swollen glands. The patient reports no fever, no night sweats, no significant weight gain, no significant weight loss. No significant exercise tolerance. The patient reports no dry eyes, no irritation, no vision change. Patient reports no difficulty hearing and no ear pain. Patient reports no frequent nose bleeds or nose and sinus problems. Patient reports on arm pain on exertion. No shortness of breath while lying down. No history of heart murmur. Patient reports no cough, no wheezing or coughing up blood. Patient reports no abdominal pain, no vomiting. Normal appetite. No diarrhea and not vomiting blood. No nausea and no constipation. Patient reports no incontinence. No difficulty urinating. No hematuria. No increased frequency. Patient reports CONSULT REPORT [id number] SKYLAR HAMPTON no muscle aches. No weakness, no arthralgias, no back pain. No swelling of the extremities. Patient reports no abnormal mole, no jaundice, no rashes. Reports no loss of consciousness. No weakness and no numbness. No seizures, dizziness, or headaches. The patient reports no depression, no sleep disturbance, feeling safe in a relationship and no alcohol abuse. Patient reports on fatigue. Reports no runny nose or sinus pressure. No itching, no hives, and no frequent sneezing. Echocardiogram reveals preserved LV function, RV strain, mildly depressed RV function, mildly dilated right and left chamber size. Pulmonary systolic pressure is estimated at 37. OVERALL IMPRESSION: Elevated troponin is secondary to pulmonary embolism, not cardiac in nature. At this time, no other cardiac workup or treatment is necessary. TRANSINT:[id number] Voice Confirmation ID: [id number] DOCUMENT ID: [id number] MEGAN PUENTES MD at 1437 CC: [id number] DICTATION DATE: 11/03/16 1556 STAFF ELECTRICAL ENGINEER: 11/03/162026 ADM IN [id number] [place] [address]
[2016-11-11 15:38] VITALS: BP 138/76
[2016-11-11 20:00] VITALS: BP 131/74
--- NOTE | 2016-11-11 20:00 | NUR ---
ASSESSMENT PER FLOWSHEET. IV PATENT LEFT FOREARM. SALINE LOCKED. SITE CLEAR. SR UP X2 CALL LIGHT WITHIN REACH. INSTRUCTED PT ON NEED FOR REPEAT UA.
--- NOTE | 2016-11-11 21:30 | NUR ---
UP AD ELVIRA TO BR VOIDS INTO URINE CUP CLEAN CATCH. SPECIMEN SENT TO LAB.
[2016-11-12] VITALS: BP 128/69
--- NOTE | 2016-11-12 | NUR ---
RESTING AT THIS TIME DENIES NEEDS. ANTIBIOTICS INFUSING WELL.
[2016-11-12 01:13] LABS: HEMATOCRIT 31.5 % (36.0-48.0); HEMOGLOBIN 9.5 g/dL (12-16); MCH 22.5 pg (26.0-34.0); MCHC 30.2 g/dL (31.0-37.0); MCV 74.6 fL (80.0-100.0); MEAN PLATELET VOLUME 10.1 fL (7.4-10.4); RBC 4.22 10x6/uL (4.00-5.40); RDW 25.5 % (11.5-14.5)
--- NOTE | 2016-11-12 01:25 | NUR ---
TEMP ELEVATED TO 101.7. TYLENOL 325MG TAB ONE PO GIVEN FOR TEMP MEASURES. PT REMAINS NPO FOR US OF ABDOMEN.
--- NOTE | 2016-11-12 03:30 | NUR ---
FEVER BROKE PT SWEATING. COOL CLOTH GIVEN TO PATIENT.
[2016-11-12 04:00] VITALS: BP 134/76
[2016-11-12 05:45] LABS: BASOPHILS 0.2 % (0.0-2.0); EOSINOPHILS 1.5 % (0-7); HEMATOCRIT 31.7 % (36.0-48.0); HEMOGLOBIN 9.5 g/dL (12-16); IMMATURE GRANULOCYTES 0.5 % (0-5); LYMPHOCYTES 17.9 % (15-50); MCH 22.5 pg (26.0-34.0); MCV 74.9 fL (80.0-100.0); MEAN PLATELET VOLUME 10.7 fL (7.4-10.4); MONOCYTES 12.1 % (2-11); NEUTROPHILS 67.8 % (40-80); PLATELET COUNT 543 10x3/uL (130-400); RBC 4.23 10x6/uL (4.00-5.40); RDW 25.4 % (11.5-14.5); WBC 8.1 10x3/uL (4.8-10.8)
[2016-11-12 06:28] LABS: ALBUMIN 1.7 g/dL (3.4-5.0); ANION GAP 14.8 mmol/L (8-16); BILIRUBIN - TOTAL 0.4 mg/dL (0.2-1.3); CALCIUM 7.8 mg/dL (8.5-10.1); CARBON DIOXIDE 23.1 mmol/L (21.0-32.0); CREATININE - SERUM 0.9 mg/dL (0.6-1.3); MAGNESIUM - SERUM 2.2 mg/dL (1.8-2.4); PHOSPHOROUS 3.2 mg/dL (2.5-4.9); POTASSIUM - SERUM 3.9 mmol/L (3.5-5.1); PROTEIN - SERUM 6.4 g/dL (6.4-8.2)
--- NOTE | 2016-11-12 07:27 | NUR ---
RESTING IN BED, AROUSES EASILY, ABDOMINAL ULTRASOUND COMPLETE, DENIES NEEDS, NO DISTRESS NOTED, CALL LIGHT IN REACH, BED LOWEST POSITION, WILL CONTINUE TO MONITOR
[2016-11-12 08:05] VITALS: BP 139/75
[2016-11-12 09:46] LABS: INR 2.36 (0.85-1.17); PROTIME 25.9 SECONDS (11.6-15.0)
--- NOTE | 2016-11-12 10:55 | NUR ---
IV ACCESS-20 GAUGE INSERTED IN LEFT ANTECUBITAL FOR IV ACCESS. DANO DUBONRN
[2016-11-12 12:28] VITALS: BP 117/78
[2016-11-12 15:46] VITALS: BP 155/73
--- NOTE | 2016-11-12 18:48 | NUR ---
RESTING IN BED, REQUESTED LORENA, DENIES OTHER NEEDS
--- NOTE | 2016-11-12 18:51 | NUR ---
PATIENT IS AWAKE, ALERT AND ORIENTED X'S 4. RESPIRATIONS ARE EVEN AND UNLABORED ON ROOM AIR. NO SIGNS OF DISTRESS NOTED.
--- NOTE | 2016-11-12 19:10 | NUR ---
BEDSIDE REPORT RECEIVED AND CARE OF PT ASSUMED. PT LYING IN SEMI GIBSON'S POSITION VISITING WITH FAMILY MEMBERS. IV IN LEFT AC SALINE LOCKED. WILL MONITOR JEREMIAH FOR NEEDS.
--- NOTE | 2016-11-12 19:45 | NUR ---
MADE HOT COMPRESS FOR REDDENED AREA ON LEFT WRIST FOR C/O SWELLING AND PAIN.
[2016-11-12 20:00] VITALS: BP 153/78
--- NOTE | 2016-11-12 21:14 | NUR ---
HS MEDICATIONS GIVEN. WILL CONTINUE TO MONITOR FOR NEEDS.
[2016-11-13] VITALS: BP 129/74
--- NOTE | 2016-11-13 00:06 | NUR ---
PT RESTING QUIETLY IN SEMI GIBSON'S POSITION WITH EYES CLOSED AND UNLABORED BREATHING. SPOUSE IS AT BEDSIDE.
[2016-11-13 00:39] LABS: HEMATOCRIT 31.2 % (36.0-48.0); HEMOGLOBIN 9.7 g/dL (12-16); MCH 23.2 pg (26.0-34.0); MCHC 31.1 g/dL (31.0-37.0); MCV 74.6 fL (80.0-100.0); MEAN PLATELET VOLUME 9.9 fL (7.4-10.4); RBC 4.18 10x6/uL (4.00-5.40); RDW 25.3 % (11.5-14.5); WBC 7.9 10x3/uL (4.8-10.8)
[2016-11-13 04:00] VITALS: BP 127/75
--- NOTE | 2016-11-13 06:04 | NUR ---
PT NOTICED RASH ON BOTH UPPER LEGS THIS MORNING...NO ITCHING OR OTHER SX.
--- NOTE | 2016-11-13 06:06 | NUR ---
ALL NEEDS MET DURING SHIFT. CONTINUE PLAN OF CARE.
[2016-11-13 06:14] LABS: BASOPHILS 0.1 % (0.0-2.0); EOSINOPHILS 2.5 % (0-7); HEMATOCRIT 34.1 % (36.0-48.0); HEMOGLOBIN 10.2 g/dL (12-16); IMMATURE GRANULOCYTES 0.4 % (0-5); LYMPHOCYTES 9.3 % (15-50); MCH 22.4 pg (26.0-34.0); MCHC 29.9 g/dL (31.0-37.0); MCV 74.9 fL (80.0-100.0); MEAN PLATELET VOLUME 10.5 fL (7.4-10.4); MONOCYTES 6.6 % (2-11); NEUTROPHILS 81.1 % (40-80); PLATELET COUNT 577 10x3/uL (130-400); RBC 4.55 10x6/uL (4.00-5.40); RDW 25.5 % (11.5-14.5)
[2016-11-13 06:32] LABS: ALBUMIN 1.6 g/dL (3.4-5.0); ANION GAP 14.2 mmol/L (8-16); BILIRUBIN - TOTAL 0.45 mg/dL (0.2-1.3); CALCIUM 7.9 mg/dL (8.5-10.1); CARBON DIOXIDE 23.5 mmol/L (21.0-32.0); CREATININE - SERUM 0.9 mg/dL (0.6-1.3); POTASSIUM - SERUM 3.7 mmol/L (3.5-5.1)
[2016-11-13 06:34] LABS: INR 2.08 (0.85-1.17); PROTIME 23.4 SECONDS (11.6-15.0)
--- NOTE | 2016-11-13 07:15 | NUR ---
AWAKE ALERT AT BEDSIDE AT PRESENT IV CONT AT 25CC/HR/IVAC AT PRESENT.LEFT WRIST WARM TOWEL PLACE TO REDDNESS FOR COMFORT AT PRESENT.
[2016-11-13 08:05] VITALS: BP 143/73
--- NOTE | 2016-11-13 09:20 | NUR ---
MEDS GIVEN CIPRIANO WELL AT PRESENT.
--- NOTE | 2016-11-13 11:00 | NUR ---
AT BEDSIDE DENIES ANY NEEDS AT THIS TIME.
[2016-11-13 12:20] VITALS: BP 130/75
--- NOTE | 2016-11-13 13:00 | NUR ---
TAKING LIQS WELL AT PRESENT N/C AT PRESENT.
--- NOTE | 2016-11-13 15:00 | NUR ---
FAMILY REMAINS AT BEDSIDE DENIES ANY NEEDS AT [facility].
[2016-11-13 15:37] VITALS: BP 134/85
--- NOTE | 2016-11-13 17:00 | NUR ---
SITTING UP IN CHAIR AT PRESENT DENIES ANY NEEDS AT THIS TIME.
[2016-11-13 19:00] VITALS: BP 140/73
--- NOTE | 2016-11-13 19:00 | NUR ---
BEDSIDE REPORT RECEIVED AND CARE OF PT ASSUMED. PT LYING IN SEMI GIBSON'S POSITION WATCHING TV...STATES SHE IS FEELING BETTER THIS EVENING. IV IN RIGHT AC PATENT WITH NS INFUSING AT KVO. WILL MONITOR CLOSELY FOR NEEDS.
--- NOTE | 2016-11-13 19:17 | NUR ---
STATUS REMAINS UNCHGD AT PRESENT DENIES ANY NEEDS AT PRESENT.
--- NOTE | 2016-11-13 21:15 | NUR ---
HS MEDICATIONS GIVEN. GAVE HS SNACK OF X2 APPLESAUCE. WILL CONTINUE TO MONITOR FOR NEEDS.
--- NOTE | 2016-11-13 21:59 | NUR ---
NPO AFTER MIDNIGHT SIGNAGE PLACED ON DOOR AND DISCUSSED WITH PT.
[2016-11-14 05:20] LABS: BASOPHILS 0.7 % (0.0-2.0); EOSINOPHILS 4.5 % (0-7); HEMATOCRIT 32.3 % (36.0-48.0); HEMOGLOBIN 9.4 g/dL (12-16); IMMATURE GRANULOCYTES 0.3 % (0-5); MCHC 29.1 g/dL (31.0-37.0); MCV 75.6 fL (80.0-100.0); MEAN PLATELET VOLUME 10.8 fL (7.4-10.4); MONOCYTES 10.1 % (2-11); NEUTROPHILS 62.4 % (40-80); PLATELET COUNT 477 10x3/uL (130-400); RBC 4.27 10x6/uL (4.00-5.40); RDW 25.5 % (11.5-14.5)
[2016-11-14 05:23] LABS: WBC 5.8 10x3/uL (4.8-10.8)
[2016-11-14 05:39] LABS: ALBUMIN 1.8 g/dL (3.4-5.0); ALKALINE PHOSPHATASE 198 U/L (46-116); ALT (SGPT) 82 U/L (10-68); BILIRUBIN - TOTAL 0.27 mg/dL (0.2-1.3); CALC OSMOLALITY 271 mosm/kg (275-300); CALCIUM 7.9 mg/dL (8.5-10.1); CARBON DIOXIDE 21.3 mmol/L (21.0-32.0); CHLORIDE - SERUM 104 mmol/L (98-107); CREATININE - SERUM 0.8 mg/dL (0.6-1.3); GLUCOSE 103 mg/dL (74-106); PROTEIN - SERUM 6.5 g/dL (6.4-8.2); SODIUM 137 mmol/L (136-145); UREA NITROGEN 8 mg/dL (7-18); eGFR NON AFRICAN AMERICAN 81 mL/min (90-120)
[2016-11-14 05:46] LABS: POTASSIUM - SERUM 4.4 mmol/L (3.5-5.1)
[2016-11-14 05:48] LABS: APTT 51.4 SECONDS (22.8-39.4); INR 1.87 (0.85-1.17); PROTIME 21.5 SECONDS (11.6-15.0)
[2016-11-14 07:55] VITALS: BP 136/73
--- NOTE | 2016-11-14 09:07 | NUR ---
PT TO [facility] AT THIS TIME FOR PLACEMENT OF VENACAVA FILTER AND POSSIBLE CT GUIDED THORACENTESIS CONSENTS OBTAINED PER IR NURSE.
[2016-11-14 11:19] LABS: PROTEIN - BODY FLUID 5.1 G/DL
[2016-11-14 11:40] LABS: EOS BF 2 %; LYMPH - BF 49 %; MACROPHAGES BF 19 %; MESOTHELIALS BF 7 %; NEUT - BF 23 %
[2016-11-14 12:22] VITALS: BP 151/68
[2016-11-14 15:24] VITALS: BP 134/69
[2016-11-14 19:00] VITALS: BP 136/71
--- NOTE | 2016-11-15 02:08 | NUR ---
RESTING WITH EYES CLOSED, NO DISTRESS NOTED, SR'S UP , CL IN REACH
[2016-11-15 05:38] LABS: BASOPHILS 0.4 % (0.0-2.0); EOSINOPHILS 7.7 % (0-7); HEMOGLOBIN 9.2 g/dL (12-16); IMMATURE GRANULOCYTES 0.2 % (0-5); MCH 22.4 pg (26.0-34.0); MCHC 29.7 g/dL (31.0-37.0); MCV 75.4 fL (80.0-100.0); MEAN PLATELET VOLUME 10.2 fL (7.4-10.4); MONOCYTES 10.1 % (2-11); NEUTROPHILS 61.6 % (40-80); PLATELET COUNT 457 10x3/uL (130-400); RBC 4.11 10x6/uL (4.00-5.40); RDW 24.7 % (11.5-14.5); WBC 4.7 10x3/uL (4.8-10.8)
[2016-11-15 05:50] LABS: INR 1.79 (0.85-1.17); PROTIME 20.8 SECONDS (11.6-15.0)
[2016-11-15 06:02] LABS: ALBUMIN 1.6 g/dL (3.4-5.0); ALKALINE PHOSPHATASE 173 U/L (46-116); ALT (SGPT) 73 U/L (10-68); CALC OSMOLALITY 269 mosm/kg (275-300); CALCIUM 8.2 mg/dL (8.5-10.1); CARBON DIOXIDE 24.3 mmol/L (21.0-32.0); CHLORIDE - SERUM 102 mmol/L (98-107); CREATININE - SERUM 0.7 mg/dL (0.6-1.3); GLUCOSE 106 mg/dL (74-106); POTASSIUM - SERUM 3.8 mmol/L (3.5-5.1); PROTEIN - SERUM 6.7 g/dL (6.4-8.2); SODIUM 136 mmol/L (136-145); UREA NITROGEN 8 mg/dL (7-18); eGFR NON AFRICAN AMERICAN > 90 mL/min (90-120)
--- NOTE | 2016-11-15 07:30 | NUR ---
RECIEVED PT DURING WALKING ROUNDS. PT RESTING COMFORTABLY IN BED WITH NO COMPLAINTS OF PAIN OR DISCOMFORT AT THIS TIME. ASSESSMENT DONE PER FLOWSHEET. BED IN LOW POSITION AND CALL LIGHT WITHIN REACH. WILL CONTINUE TO MONITOR.
[2016-11-15 08:40] VITALS: BP 126/71
--- NOTE | 2016-11-15 09:05 | NUR ---
SITTING UP IN CHAIR ALERT. RESPIRATIONS EVEN AND UNLABORED. CALL LIGHT IN REACH.
--- NOTE | 2016-11-15 10:30 | NUR ---
PLACED PAGE TO DR. RODGERS ABOUT PT CONCERN ABOUT RECIEVING LOVENOX AND COUMADIN, RETURNED PAGE AND STATED SHE WOULD CONTINUE THIS PLAN OF CARE UNTIL THE INR WAS IN THERAPEUTIC RANGE. INFORMED PT ON INFORMATION. BED IN LOW POSITION AND CALL LIGHT WITHIN REACH. WILL CONTINUE TO MONITOR.
[2016-11-15 12:34] VITALS: BP 116/73
[2016-11-15 16:34] VITALS: BP 124/66
[2016-11-15 18:07] LABS: ACID FAST SMEAR Negative (()); AFB SPECIMEN PROCESSING Concentration (())
--- NOTE | 2016-11-15 19:51 | NUR ---
PATIENT SITTING UP IN BED, REDNESS FROM TAPE ON LEFT FOREARM. ICE GIVEN TO REDUCE DISCOMFORT. PATIENT REQUESTED STRAWBERRY JELLO. NO OTHER NEEDS NOTED. CALL LIGHT WITHIN REACH, BED IN LOWEST LOCKED POSITION.
[2016-11-15 21:36] VITALS: BP 125/72
[2016-11-16 01:23] LABS: HEMATOCRIT 30.7 % (36.0-48.0); MCH 22.2 pg (26.0-34.0); MCHC 29.3 g/dL (31.0-37.0); MCV 75.6 fL (80.0-100.0); MEAN PLATELET VOLUME 10.2 fL (7.4-10.4); RBC 4.06 10x6/uL (4.00-5.40); RDW 24.8 % (11.5-14.5); WBC 4.5 10x3/uL (4.8-10.8)
--- NOTE | 2016-11-16 05:30 | NUR ---
PT IS ASLEEP WITH EASY RESPIRTAIONS AND NO DISTRESS NOTED. HE HAS A NEW IVC FILTER IN PLACE AND A SMALL AREA WHERE THERE WAS THORACENTESIS. THE BED IS LOW, RAILS UP X'S 2 WITH THE CALL LIGHT AT HAND.
[2016-11-16 06:13] LABS: INR 1.88 (0.85-1.17); PROTIME 21.6 SECONDS (11.6-15.0)
--- NOTE | 2016-11-16 07:30 | NUR ---
RECIEVED PT DURING WALKING ROUNDS. PT RESTING IN BED WITH NO COMPLAINTS OF PAIN OR DISCOMFORT AT THIS TIME. PT STATED SHE HAD TROUBLE TAKING DEEP BREATHS AND THAT SHE WASNT DOING WELL ON HER I.S., INFORMED PT THAT SHE JUST HAD TO CONTINUE TO WORK ON IT AND TRY TO COUGH UP HER SECRETIONS WHEN SHE CAN. ASSESSMENT DONE PER FLOWSHEET. BED IN LOW POSITION AND CALL LIGHT WITHIN REACH. WILL CONTINUE TO MONITOR.
[2016-11-16 08:18] VITALS: BP 122/72
--- NOTE | 2016-11-16 09:50 | NUR ---
DID TEACHING AT THIS TIME WITH PT ON TAKING THE MUCINEX, INFORMED PT THAT SHE NEEDED TO DRINK A FULL GLASS OF WATER WHEN TAKING THE MUCINEX. PT UNDERSTOOD. LEFT PT SITTING UP IN CHAIR, CALL LIGHT WITHIN REACH. WILL CONTINUE TO MONITOR.
--- NOTE | 2016-11-16 10:15 | NUR ---
PATIENT SITTING UP IN CHAIR ALERT. NO SIGNS OF DISTRESS NOTED. JAMAL, NURSE AID PRESENT AT BEDSIDE. CALL LIGHT IN REACH.
[2016-11-16 11:53] VITALS: BP 114/79
[2016-11-16 16:15] VITALS: BP 123/80
[2016-11-16 22:19] VITALS: BP 130/68
[2016-11-17] VITALS: BP 131/68
--- NOTE | 2016-11-17 01:30 | NUR ---
PATIENT RESTING WITH EYES CLOSED, NO VISIBLE SIGNS OF DISTRESS. BED IN LOWEST POSITION AND CALL LIGHT WITHIN REACH.
[2016-11-17 05:39] LABS: HEMATOCRIT 31.5 % (36.0-48.0); HEMOGLOBIN 9.3 g/dL (12-16); MCH 22.4 pg (26.0-34.0); MCHC 29.5 g/dL (31.0-37.0); MCV 75.7 fL (80.0-100.0); MEAN PLATELET VOLUME 10.8 fL (7.4-10.4); RBC 4.16 10x6/uL (4.00-5.40); RDW 24.9 % (11.5-14.5); WBC 3.7 10x3/uL (4.8-10.8)
--- NOTE | 2016-11-17 05:40 | NUR ---
NO CHANGES IN STATUS, NO C/O, STABLE AND AFEBRILE. PIV TO LAC SALINE LOCKED.
[2016-11-17 05:50] LABS: INR 2.84 (0.85-1.17)
--- NOTE | 2016-11-17 07:43 | NUR ---
AWAKE ALERT COLOR ADQ SKIN WARM AND RESP EVEN AND UNLABORED AT PRESENT LUNGS CLEAR AT PRESENT.
[2016-11-17 07:50] VITALS: BP 126/74
--- NOTE | 2016-11-17 10:30 | NUR ---
SITTING UP IN CHAIR AT PRESENT.
[2016-11-17 12:10] VITALS: BP 105/76
--- NOTE | 2016-11-17 12:21 | NUR ---
ATBEDSIDE QUIET N/C VOICED AT PRESENT.
[2016-11-17 13:12] LABS: FUNGUS STAIN Final report (())
--- NOTE | 2016-11-17 14:36 | NUR ---
AT BEDSIDE DENIES ANY NEEDS AT PRESENT QUIET IN ROOM.
--- NOTE | 2016-11-17 17:02 | NUR ---
STATUS REMAINS UNCHGD AT PRESENT N/C VOICED.
[2016-11-17 19:00] VITALS: BP 121/75
--- NOTE | 2016-11-17 19:30 | NUR ---
REC'D PATIENT LYING IN BED. ALERT AND ORIENTED X4. NO DISTRESS NOTED. DENIED PAIN AT THIS TIME. LUNGS WERE CLEAR. STATED SHE WANTED SOME ICE WATER, WILL GO GET THAT FOR HER. DENIED FURTHER NEEDS AT THIS TIME. BED LOW LOCKED, CALL LIGHT IN REACH. INTRUCTED TO CALL IF NEEDED ANYTHING. VERBALIZED UNDERSTANDING.
--- NOTE | 2016-11-17 21:00 | NUR ---
AMINISTERED MEDS PRESCRIBED. DENIED PAIN AT THIS TIME. DENIED FURTHER NEEDS AT THIS TIME. INTRUCTED TO CALL IF NEEDED ANYTHING. BED LOW, LOCKED, CALL LIGHT IN REACH.
[2016-11-18] VITALS: BP 139/76
--- NOTE | 2016-11-18 01:06 | NUR ---
EYES CLOSED RESPIRATIONS WITH EASE AND UNLABORED. SR UP X2 CALL LIGHT WITHIN REACH.
--- NOTE | 2016-11-18 01:58 | NUR ---
RESTING COMFORTABLY IN BED. NO DISTRESS NOTED. DENIED PAIN AT THIS TIME. DENIED FURTHER NEEDS. INTRUCTED TO CALL IF NEEDED ANYTHING. BED LOW, LOCKED, CALL LIGHT IN REACH.
[2016-11-18 02:08] LABS: HEMOGLOBIN 9.7 g/dL (12-16); MCH 22.3 pg (26.0-34.0); MCHC 29.4 g/dL (31.0-37.0); MCV 75.9 fL (80.0-100.0); MEAN PLATELET VOLUME 10.4 fL (7.4-10.4); RBC 4.35 10x6/uL (4.00-5.40); RDW 24.9 % (11.5-14.5); WBC 3.6 10x3/uL (4.8-10.8)
[2016-11-18 04:00] VITALS: BP 135/75
--- NOTE | 2016-11-18 05:39 | NUR ---
PATIENT RESTING COMFORTABLY IN BED. DENIES NEEDS AT THIS TIME. INSTRUCTED TO CALL IF NEEDED ANYTHING. BED LOW, LOCKED, CALL LIGHT IN REACH.
[2016-11-18 05:55] LABS: BASOPHILS 1.1 % (0.0-2.0); EOSINOPHILS 4.7 % (0-7); HEMATOCRIT 33.7 % (36.0-48.0); HEMOGLOBIN 9.7 g/dL (12-16); IMMATURE GRANULOCYTES 0.8 % (0-5); LYMPHOCYTES 46.6 % (15-50); MCH 21.9 pg (26.0-34.0); MCHC 28.8 g/dL (31.0-37.0); MCV 76.1 fL (80.0-100.0); MEAN PLATELET VOLUME 10.5 fL (7.4-10.4); MONOCYTES 11.7 % (2-11); NEUTROPHILS 35.1 % (40-80); PLATELET COUNT 417 10x3/uL (130-400); RBC 4.43 10x6/uL (4.00-5.40); RDW 25.1 % (11.5-14.5); WBC 3.6 10x3/uL (4.8-10.8)
[2016-11-18 06:30] LABS: ALBUMIN 2.1 g/dL (3.4-5.0); ALKALINE PHOSPHATASE 157 U/L (46-116); ALT (SGPT) 66 U/L (10-68); BILIRUBIN - TOTAL 0.23 mg/dL (0.2-1.3); CALC OSMOLALITY 276 mosm/kg (275-300); CALCIUM 8.7 mg/dL (8.5-10.1); CARBON DIOXIDE 22.9 mmol/L (21.0-32.0); CHLORIDE - SERUM 106 mmol/L (98-107); CREATININE - SERUM 0.8 mg/dL (0.6-1.3); GLUCOSE 107 mg/dL (74-106); PROTEIN - SERUM 7.9 g/dL (6.4-8.2); SODIUM 140 mmol/L (136-145); UREA NITROGEN 6 mg/dL (7-18); eGFR NON AFRICAN AMERICAN 81 mL/min (90-120)
[2016-11-18 06:41] LABS: INR 4.14 (0.85-1.17); PROTIME 40.6 SECONDS (11.6-15.0)
[2016-11-18 08:37] VITALS: BP 129/76
[2016-11-18] MEDS ORDERED: NYSTATIN ORAL SU5 ML PO (09:35)
[2016-11-18] MEDS ORDERED: FERROUS SULFAT325 MG PO (09:35)
[2016-11-18] MEDS ORDERED: MUCINEX DM ER1 EAC1 PO (09:36)
[2016-11-18] MEDS ORDERED: FLORAJEN3 CAPS460 MG PO (09:36)
[2016-11-18] MEDS ORDERED: TRAZODONE HCL50 MG PO (09:36)
[2016-11-18] MEDS ORDERED: SALINE NASAL SP45 ML NASAL (09:36)
[2016-11-18] MEDS ORDERED: COUMADIN2.5 MG PO (09:37)
--- NOTE | 2016-11-18 10:54 | NUR ---
CM REASSESSMENT NOTE: PATIENT IS DISCARGING HOME TODAY- SPOUSE IS DRIVING HER. PATIENT DENIED HOME HEALTH OR ANY OTHER NEEDS FOR DISCHARGE.
--- NOTE | 2016-11-18 11:00 | NUR ---
PATIENT REQUESTED IV BE D/C. D/C IV WITH CATH INTACT.
[2016-11-18 12:24] VITALS: BP 123/78
--- NOTE | 2016-11-18 14:35 | NUR ---
DISCHARGE INSTRUCTIONS COMPLETED WITH PATIENT. PATIENT VERBALIZED UNDERSTANDING AND DENIES QUESTIONS.
--- NOTE | 2016-12-11 15:50 | DS ---
PATIENT:SKYLAR HAMPTON :69 MEDICAL RECORD: [id number] DISCHARGE SUMMARY ADMISSION DATE: 11/02/16 DISCHARGE DATE: 11/18/16 DATE OF ADMISSION: 11/02/2016 DATE OF DISCHARGE: 11/18/2016 ADMITTING DIAGNOSES: 1. Saddle embolism 2. Recent acute blood loss requiring transfusion secondary to menorrhagia. 3. Status post D&C. HOSPITAL COURSE: This is a 51-year-old white female admitted with diagnoses as outlined above. Details are well-outlined in the history of the present illness, H&P. All events, lab procedures, diagnostic testing are well documented in the records. The patient was admitted to ICU, thrombolytic started. Echo ordered. Dr. Yanes consulted for critical care pulmonary management. His recommendations were followed. Dr. Ellison followed for cardiovascular recommendations. Dr. Ray followed for Harbormaster-Ob recommendation. She had additional consultants, Dr. Greene with interventional radiology and Dr. Sandy Santiago with infectious disease, Dr. Mera with hematology/oncology. Echo showed EF 55%, moderate tricuspid regurgitation, pulmonary systolic pressure at 37, no PE, no thrombus. The patient did undergo inferior vena cava placement, underwent thoracentesis. The patient was stabilized and transferred out of the intensive care unit, transferred to the floor, continued to improve, on 11/18/2016, the patient was afebrile, vital signs stable. LABORATORY DATA: White count 3.6, hemoglobin 9.7, and platelets 417. Sodium 140, potassium 4, chloride 106, CO2 of 22.9, BUN 6, serum creatinine 0.8, and glucose 107. Calcium 8.7. T-bili 0.23. AST 48, ALT 66, and alkaline phos 157. Albumin 2.1. Other serologies, immunology labs, well documented in the records and in the electronic medical record. The patient was found stable for dismissal home on 11/18/2016. DIAGNOSES: 1. Saddle embolus of pulmonary artery. 2. Anemia due to blood loss, acute. 3. Dyspnea. 4. Weakness. 5. Fatigue. 6. Menorrhagia, 7. Fever. 8. Sjogren's disease. 9. Protein C deficiency. 10. Deep vein thrombosis. 11. Pleural effusion. 12. Iron deficient anemia resolved. 13. Acute kidney injury. 14. Positive troponins due to stress leak. 15. Positive SARANYA. DISCHARGE SUMMARY REPORT [id number] SKYLRA HAMPTON 16. Splenomegaly. 17. Hypoalbuminemia. 18. Elevated LFTs due to ischemic hepatopathy, no cholecystitis, fever resolved, leukocytosis resolved. 19. Pneumonia, completed 7 days of antibiotics. 20. History of D&C for menorrhagia due to one large fibroid or mass. No significant bleeding after tPA, cannot rule out large fibroid or possible sarcoma and may need further evaluation. 21. Mild right ventricular strain. Greater than 30 minutes was spent on this discharge. TRANSINT:[id number] Voice Confirmation ID: [id number] DOCUMENT ID: [id number] Dictated By: YONNY HAILE RN I have interviewed/examined the above patient and agree with these documented findings. ANKUR JEWELL MD at 0856 at 1550 CC: [id number] DICTATION DATE: 12/10/16 1618 FILENET P8 DEVELOPER: 12/11/16 1322 DIS IN 11/18/16 [facility] [address] [place] [address]
[2016-12-12 13:16] LABS: FUNGUS MYCOLOGY CULTURE Final report (())
== END 2016-11-18 15:00 | disposition home or self-care (01) | DRG 166 ==
LOC: D.ER 11:23 → D.MS 12:54 → D.ICU 12:54 → D.CVICU 12:54 → D.MS 11-08 18:04
PROVIDERS: Emergency Medicine; Family Medicine; Internal Medicine Pulmonary Disease; ADMIT Family Medicine
PROC: 3E03317 Introduction of Other Thrombolytic into Peripheral Vein, Percutaneous Approach (ICD-10-PCS; principal; 2016-11-03)
PROC: 06H03DZ Insertion of Intraluminal Device into Inferior Vena Cava, Percutaneous Approach (ICD-10-PCS; 2016-11-14)
PROC: 0W993ZZ Drainage of Right Pleural Cavity, Percutaneous Approach (ICD-10-PCS; 2016-11-14)
DX: I26.92 Saddle embolus of pulmonary artery without acute cor pulmonale (principal); N17.0 Acute kidney failure with tubular necrosis; I50.21 Acute systolic (congestive) heart failure; J18.9 Pneumonia, unspecified organism; D62 Acute posthemorrhagic anemia; E87.2 Acidosis; J98.11 Atelectasis; D68.59 Other primary thrombophilia; I82.412 Acute embolism and thrombosis of left femoral vein; J90 Pleural effusion, not elsewhere classified; B37.0 Candidal stomatitis; R09.02 Hypoxemia; R16.1 Splenomegaly, not elsewhere classified; D25.9 Leiomyoma of uterus, unspecified; K76.1 Chronic passive congestion of liver; I95.9 Hypotension, unspecified; D50.9 Iron deficiency anemia, unspecified; I07.1 Rheumatic tricuspid insufficiency; E88.09 Other disorders of plasma-protein metabolism, not elsewhere classified; G47.00 Insomnia, unspecified; N92.0 Excessive and frequent menstruation with regular cycle; M35.00 Sjogren syndrome, unspecified; R00.0 Tachycardia, unspecified

== ENCOUNTER 2016-12-11 11:27 | Inpatient (IN) | payer SELFPAY ==
[~2016-12-11] VITALS: Ht 165.1 cm; Wt 81.9 kg
--- NOTE | ~2016-12-11 | HEMODYNAMI ---
PATIENT:SKYLAR HAMPTON MEDICAL RECORD: [id number] : 69 LOCATION[facility] [id number] ADMISSION DATE: 12/11/16 Generatedon:12/12/201618:28 Patient name: SKYLAR HAMPTON Patient #: [id number] SSN: : [id number] Date of study: 12/12/2016 Page: Of Hemodynamic Procedure Report Patient Data Patient Demographics Procedure consent was obtained First Name: SKYLAR Gender: Female Last Name: MEMO : 1965 Middle Initial: NIRALI Harris Age: 51 year(s) Patient #: [id number] Race: Unknown Additional ID: [id number] Contact details Address: [address] [place] [address] State: [place] City: [place] Zip code: [address] Past Medical History Allergies: No known allergies Admission Admission Data Admission Date: 12/11/2016 Admission Time: 15:05 Room #: 2139 Procedure Procedure Types Cath Procedure Peripheral Cath Diagnostic Procedure Miscellaneous Procedure Description Procedure Date Procedure Date: 12/12/2016 Procedure Start Time: 17:10 Procedure Staff Name Function Josh Greene MD Performing Physician Rashmi Nicholson RT Scrub Anjelica Christopher RN Nurse Renate Moctezuma RN Nurse Raúl Tovar RT Monitor Procedure Data Cath Procedure Fluoroscopy Diagnostic fluoroscopy Total fluoroscopy Time: time: 15.3 min 15.3 min Diagnostic fluoroscopy Total fluoroscopy dose: dose: 2055 mGy 2055 mGy Contrast Material Contrast Material Type Amount (ml) Isovue 300 166 Entry Location Entry Primary Successful Side Size Upsize Upsize Entry Closure Succes sful Closure Location (Fr) 1 (Fr) 2 (Fr) Remarks Device Remarks Femoral Right 5 Fr Exoseal artery Diagnostic catheters Device Type Used For End Catheter Placement Cook 5Fr RUC 90 cm catheter Merit ULTRA BOLUS FLUSH 5Fr 65CM catheter Procedure Medications Medication Administration Route Dosage Oxygen NC 3 l/min Heparin Flush Bag added to field 2 bags (1000units/500ml NS) Lidocaine 1% added to field 20 Versed I.V. 1 mg Fentanyl I.V. 50 mcg Zofran I.V. 8 mg Decadron I.V.P.B 10 mg unlisted medication 30 mg Versed I.V. 1 mg Fentanyl I.V. 50 mcg Rocephin I.V. 1 g Versed I.V. 1 mg Fentanyl I.V. 50 mcg Versed I.V. 0.5 mg Fentanyl I.V. 25 mcg Versed I.V. 0.5 mg Fentanyl I.V. 25 mcg Versed I.V. 1 mg Fentanyl I.V. 50 mcg Fentanyl I.V. 50 mcg Versed I.V. 1 mg Nitroglycerin IC/IA I.A. 200 mcg Nitroglycerin IC/IA I.A. 200 mcg Hemodynamics Rest Heart Rate: 103 (bpm) Snapshots Pre Cath Intra NCS Post Cath Vital Signs Time Heart Resp SPO2 NIBP (mmHg) Rhythm Pain Sedation Rate (ipm) (%) Status Level (bpm) 16:55:52 101 134/85(117) NSR 0 (11) 10(A) , No pain 17:00:05 101 19 94 124/73(95) NSR 0 (11) 10(A) , No pain 17:04:17 96 26 100 120/74(89) NSR 0 (11) 10(A) , No pain 17:08:27 92 23 100 125/73(96) NSR 0 (11) 10(A) , No pain 17:12:39 91 23 100 130/79(96) NSR 0 (11) 10(A) , No pain 17:16:47 94 18 100 117/75(89) NSR 0 (11) 9(A) , No pain 17:20:55 94 8 100 119/73(88) NSR 0 (11) 9(A) , No pain 17:25:09 96 22 100 113/67(83) NSR 0 (11) 9(A) , No pain 17:29:21 96 22 100 115/66(88) NSR 0 (11) 9(A) , No pain 17:33:31 102 22 99 110/59(75) NSR 0 (11) 9(A) , No pain 17:37:43 99 20 99 114/60(83) NSR 0 (11) 9(A) , No pain 17:41:53 96 21 99 109/66(76) NSR 0 (11) 9(A) , No pain 17:46:05 94 20 99 109/62(80) NSR 0 (11) 9(A) , No pain 17:50:17 94 18 99 106/61(76) NSR 0 (11) 9(A) , No pain 17:54:26 93 18 99 107/64(76) NSR 0 (11) 9(A) , No pain 17:58:36 93 19 99 106/64(77) NSR 0 (11) 9(A) , No pain 18:02:46 92 20 99 105/65(77) NSR 0 (11) 9(A) , No pain 18:06:58 91 16 99 107/62(81) NSR 0 (11) 9(A) , No pain 18:11:08 93 17 98 110/69(86) NSR 0 (11) 9(A) , No pain 18:15:14 98 14 98 127/83(98) NSR 0 (11) 9(A) , No pain 18:19:24 99 20 98 138/87(108) NSR 0 (11) 9(A) , No pain 18:23:38 101 16 99 148/89(117) NSR 0 (11) 9(A) , No pain 18:27:56 104 24 99 157/91(113) NSR 0 (11) 9(A) , No pain Medications Time Medication Route Dose Verified Delivered Reason Notes E ffectiveness by by 16:48:03 Lidocaine 1% added 20ml Anjelica Anjelica for local to vial King COLTEN Christopher RN anesthetic field 16:48:17 Oxygen NC 3 Anjelica Anjelica Per protocol l/min King COLTEN Christopher RN 16:48:52 Heparin Flush added 2 Anjelica Anjelica used for Bag to bags King COLTEN Christopher RN procedure (1000units/500ml field NS) 16:52:58 Zofran I.V. 8 mg Anjelica Anjelica Per protocol King COLTEN Christopher RN 16:57:27 Decadron I.V.P.B 10 mg Anjelica Anjelica Per protocol King COLTEN Christopher RN 17:06:14 Versed I.V. 1 mg Anjelica Anjelica for sedation King COLTEN Christopher RN 17:06:26 Fentanyl I.V. 50 Anjelica Anjelica for sedation mcg King COLTEN Christopher RN 17:09:16 TORADOL IV 30mg Anjelica Anjelica Per protocol King COLTEN Christopher RN 17:09:27 Fentanyl I.V. 50 Anjelica Anjelica for sedation mcg King COLTEN Christopher RN 17:09:43 Rocephin I.V. 1 g Anjelica Anjelica Per protocol King COLTEN Christopher RN 17:10:23 Versed I.V. 1 mg Anjelica Anjelica for sedation King COLTEN Christopher RN 17:15:53 Versed I.V. 1 mg Anjelica Anjelica for sedation King COLTEN Christopher RN 17:15:58 Fentanyl I.V. 50 Anjelica Anjelica for sedation mcg King COLTEN Christopher RN 17:36:06 Versed I.V. 0.5 Anjelica Anjelica for sedation mg King COLTEN Christopher RN 17:36:11 Fentanyl I.V. 25 Anjelica Anjelica for sedation mcg King COLTEN Christopher RN 17:48:40 Versed I.V. 0.5 Anjelica Anjelica for sedation mg King COLTEN Christopher RN 17:48:44 Fentanyl I.V. 25 Anjelica Anjelica for sedation mcg King COLTEN Christopher RN 17:51:13 Nitroglycerin I.A. 200 Anjelica Josh for IC/IA mcg King COLTEN Greene MD vasodilation 17:55:12 Versed I.V. 1 mg Anjelica Anjelica for sedation King COLTEN Christopher RN 18:01:22 Nitroglycerin I.A. 200 Anjelica Josh for IC/IA mcg King COLTEN Greene MD vasodilation 18:04:56 Fentanyl I.V. 50 Anjelica Anjelica for sedation mcg King COLTEN Christopher RN 18:16:42 Fentanyl I.V. 50 Anjelica Anjelica for sedation mcg King COLTEN Christopher RN 18:16:49 Versed I.V. 1 mg Anjelica Anjelica for sedation King COLTEN Christopher assembler dielectric heater Log Time Note 16:41:06 Anjelica Christopher RN sent for patient. Start room use. 16:41:14 Time tracking: Regular hours 16:41:19 Plan of Care:Hemodynamics will remain stable., Cardiac rhythm will remain stable., Comfort level will be maintained., Respiratory function will remain adequate., Patient/ family verbilizes understanding of procedure., Procedure tolerated without complication., Recovers from procedure without complications.. 16:41:35 Patient received from Med II to IR Alert and oriented. Tansferred to table in Supine position. 16:41:36 Correct patient and procedure confirmed by team. 16:41:38 Signed procedure consent form obtained from patient. 16:41:40 ECG and BP/O2 sat monitors applied to patient. 16:41:42 Full Disclosure recording started 16:41:42 - 16:41:47 H&P Date Dictated: 12/12/2016 Within 30 days and on chart.. 16:41:48 Pre-procedure instructions explained to patient. 16:41:48 Pre-op teaching completed and patient verbalized understanding. 16:41:50 Family in waiting room. 16:41:52 Patient NPO since Midnight. 16:41:56 Is the patient allergic to Iodine/contrast media? No. 16:42:00 Use device set IR Diagnostic 16:42:02 Sterile Angiographic Pack opened to sterile field. 16:42:03 Bag Decanter opened to sterile field. 16:42:04 Acist Manifold opened to sterile field. 16:42:05 Acist Hand Control opened to sterile field. 16:42:06 Acist Syringe opened to sterile field. 16:48:03 Lidocaine 1% 20ml vial added to field was administered by Anjelica Christopher RN; for local anesthetic; 16:48:17 Oxygen 3 l/min NC was administered by Anjelica Christopher RN; Per protocol; 16:48:52 Heparin Flush Bag (1000units/500ml NS) 2 bags added to field was administered by Anjelica Christopher RN; used for procedure; 16:51:19 Is patient on blood thinner?No 16:51:20 Patient diabetic? No. 16:51:21 - 16:51:22 ----Pre-sedation anethsthesia assessment.---- 16:51:24 Previous problem with sedation/anesthesia? No ? 16:51:26 Snore? No 16:51:27 Sleep apnea? No 16:51:28 Deviated septum? No 16:51:29 Opens mouth fully? Yes 16:51:30 Sticks out tongue? Yes 16:51:32 Airway obstruction? No ? 16:51:34 Dentures? No ? 16:51:40 Pre procedure: right dorsailis pedis pulse Doppler 16:51:43 Pre procedure: right posterior tibial pulse Doppler 16:51:45 Sharps counted by scrub and verified by R.N. 16:51:45 Alarms reviewed by R. N. 16:51:48 Right groin area was prepped with chlora-prep and draped in sterile fashion 16:51:53 Patient pain scale 0/10 ?. 16:51:57 IV patent on arrival in right forearm with 0.9% NaCl at [facility]. 16:52:58 Zofran 8 mg I.V. was administered by Anjelica Christopher RN; Per protocol; 16:54:53 Baseline sample Acquired. 16:54:53 Vital chart was started 16:55:54 Rhythm: sinus tachycardia 16:55:59 Baseline sample Acquired. 16:57:27 Decadron 10 mg I.V.P.B was administered by Anjelica Christopher RN; Per protocol ; 17:05:30 Physician arrived 17:05:31 --------ALL STOP TIME OUT------ 17:05:31 Final Timeout: patient, procedure, and site verified with staff and physician. All members of the team are in agreement. 17:05:33 Right groin site verified by team. 17:05:44 Physical assessment completed. ASA score P 2 - A patient with mild systemic disease as per Josh Greene MD. 17:05:52 Sedation plan: IV Moderate Sedation Versed, Fentanyl 17:06:14 Versed 1 mg I.V. was administered by Anjelica Christopher RN; for sedation; 17::26 Fentanyl 50 mcg I.V. was administered by Anjelica Christopher RN; for sedation; 17:09:16 TORADOL 30mg IV was administered by Anjelica Christopher RN; Per protocol; 17::27 Fentanyl 50 mcg I.V. was administered by Anjelica Christopher RN; for sedation; 17:09:43 Rocephin 1 g I.V. was administered by Anjelica Christopher RN; Per protocol; 17:09:54 Procedure started. 17:10:23 Versed 1 mg I.V. was administered by Anjelica Christopher RN; for sedation; 17:10:57 Local anesthetic to right femoral artery with Lidocaine 1% by Josh Greene MD.INITIAL ACCESS ONLY 17:11:01 A 5 Fr sheath was inserted into the Right Femoral artery 17:11:04 Micropuncture VSI 4FR kit opened to sterile field. 17:11:04 Terumo 5Fr [place] Sheath opened to sterile field. 17:11:05 Cook DOC .035 guide wire opened to sterile field. 17:11:05 STOPCOCK 3-WAY LARGE BORE opened to sterile field. 17:11:06 TUBING, CONTRAST INJCTN HI PRES opened to sterile field. 17:11:08 A IntervalZero 5Fr RUC 90 cm catheter was advanced over the wire and used for . 17:15:53 Versed 1 mg I.V. was administered by Anjelica Christopher RN; for sedation; 17:15:58 Fentanyl 50 mcg I.V. was administered by Anjelica Christopher RN; for sedation; 17:17:04 A Capton ULTRA BOLUS FLUSH 5Fr 65CM catheter was advanced over the wire and used for . 17:18:25 Terumo 5FR ANGLED 65CM glide catheter opened to sterile field. 17:20:46 Terumo ANGLE 180L glide wire opened to sterile field. 17:20:56 Terumo TORQUE DEVICE PLASTIC .038 opened to sterile field. 17:31:23 RENEGADE HI-LORI microcatheter opened to sterile field. 17:31:24 Terumo GT DOUBLE ANGLE .018 glide wire opened to sterile field. 17:36:06 Versed 0.5 mg I.V. was administered by Anjelica Christopher RN; for sedation; 17:36:11 Fentanyl 25 mcg I.V. was administered by Anjelica Christopher RN; for sedation; 17:41:41 STOPCOCK 3-WAY LARGE BORE opened to sterile field. 17:48:40 Versed 0.5 mg I.V. was administered by Anjelica Christopher RN; for sedation; 17:48:44 Fentanyl 25 mcg I.V. was administered by Anjelica Christopher RN; for sedation; 17:48:46 Emboshere particles 500-700 um opened to sterile field. 17:49:35 Emboshere particles 500-700 um opened to sterile field. 17:50:09 Emboshere particles 500-700 um opened to sterile field. 17:51:13 Nitroglycerin IC/IA 200 mcg I.A. was administered by Josh Greene MD; fo r vasodilation; 17:55:12 Versed 1 mg I.V. was administered by Anjelica Christopher RN; for sedation; 17:58:24 Emboshere particles 500-700 um opened to sterile field. 18:01:22 Nitroglycerin IC/IA 200 mcg I.A. was administered by Josh Greene MD; fo r vasodilation; 18:02:10 Emboshere particles 500-700 um opened to sterile field. 18:04:56 Fentanyl 50 mcg I.V. was administered by Anjelica Christopher RN; for sedation; 18:16:42 Fentanyl 50 mcg I.V. was administered by Anjelica Christopher RN; for sedation; 18:16:49 Versed 1 mg I.V. was administered by Anjelica Christopher RN; for sedation; 18:18:19 ANGIOSEAL-VIP PLUS 6 FR opened to sterile field. 18:20:01 Sheath removed intact; hemostasis achieved with Exoseal to the Right Femoral artery. 18:20:08 Procedure ended.(Physican Out) 18:22:40 Fluoroscopy time 15.30 minutes. 18:22:48 Fluoroscopy dose: 2055 mGy 18:22:48 Flurop Dose total: 2055 18:22:56 Contrast amount:Isovue 300 166ml. 18:22:58 Sharps counted by scrub and verified by R.N. 18:22:59 Insertion/operative site no bleeding no hematoma. 18:23:04 Post-op/insertion site Right Femoral artery dressed using a 4 x 4 and Tegaderm. 18:23:07 Post right femoral artery:stable 18:23:09 Post Procedure Pulses reassessed and unchanged 18:23:14 Post-procedure physical assessment completed. ASA score P 2 - A patient with mild systemic disease as per Josh Greene MD. 18:23:17 Post procedure rhythm: sinus rhythm 18:23:18 Post procedure instruction explained to patient.Patient verbalizes understanding. 18:23:19 Procedure and supply charges have been captured, reviewed, submitted an d are correct. 18:26:58 Report given to [facility] II. 18:27:02 Patient transfered to [facility] II with Bed. 18:28:42 Vital chart was stopped Device Usage Item Name Manufacture Quantity Catalog Number Hospital Part Current Min imal Lot# / Charge Number Stock Stock Serial# Code Sterile Cardinal 1 [id number] 689159 5 Angiographic Health Pack Bag Decanter Microtek 1 [id number] 80144 806108 5 Medical Inc. Acist Acist 1 65818 273966 933727 083936 5 Manifold Medical Systems American Biosurgical Acist Hand Acist 1 47086 483026 939820 498195 5 Control Exelis Systems American Biosurgical Acist Syringe Acist 1 52366 096933 333073 722966 20 Medical Systems American Biosurgical Micropuncture VSI VASCULAR 1 7266V 530340 376451 5 VSI 4FR kit SOLUTIONS Terumo 5Fr Terumo 1 [id number] 511750 463219 118340 40 [place] Sheath Cook DOC .035 [employer] 1 I43742 995370 788263 5 [id number] guide wire STOPCOCK [employer] 2 O48368 286485 8464 060027 5 [id number] 3-WAY LARGE 4142241 BORE TUBING, Merit 1 [id number] 019373 803347 865163 5 [id number] CONTRAST Medical INJCTN HI PRES Cook 5Fr RUC [employer] 1 Q16009 923627 933268 5 90 cm catheter Merit ULTRA Merit 1 [id number] 621021 128068 5 BOLUS FLUSH Medical 5Fr 65CM catheter Terumo 5FR Terumo 1 CG507 458862 069961 5 ANGLED 65CM glide catheter Terumo ANGLE Terumo 1 CF9034 244612 805964 261151 5 180L glide wire Terumo TORQUE [place] 1 TD01 678129 579670 758151 5 DEVICE Scientific PLASTIC .038 RENEGADE [place] 1 [id number] 327043 065436 5 [id number] HI-LORI Scientific microcatheter Terumo GT Terumo 1 [id number] 109119 244427 5 085640 DOUBLE ANGLE .018 glide wire Emboshere Merit 5 S620GH 110280 132087 1 [id number] [facility] [id number] 500-700 um S965875-4 D721474-2 M019138-[address] [facility] 1 343996 480321 784725 5 [id number] PLUS 6 FR Signature Audit [place] Stage Time Signature Unsigned Intra-Procedure 12/12/2016 Raúl 6:28:39 PM Naimaield RT (R) (CV) Signatures Monitor : Raúl Signature : Guy RT Date : Time : [address] [place] [address]
[~2016-12-11 11:27] MED LIST changes: +COUMADIN2.5 MG PO; +FERROUS SULFAT325 MG PO; +FLORAJEN3 CAPS460 MG PO; +MUCINEX DM ER1 EAC1 PO; +NYSTATIN ORAL SU5 ML PO; +SALINE NASAL SP45 ML NASAL; +TRAZODONE HCL50 MG PO
[2016-12-11 12:25] LABS: BASOPHILS 0.2 % (0-2); EOSINOPHILS 1.7 % (0-7); HEMATOCRIT 33.8 % (36.0-48.0); HEMOGLOBIN 10.3 g/dL (12-16); IMMATURE GRANULOCYTES 0.2 % (0-5); LYMPHOCYTES 16.2 % (15-50); MCH 24.8 pg (26.0-34.0); MCHC 30.5 g/dL (31.0-37.0); MCV 81.4 fL (80.0-100.0); MEAN PLATELET VOLUME 9.4 fL (7.4-10.4); MONOCYTES 8.5 % (2-11); NEUTROPHILS 73.2 % (40-80); RBC 4.15 10x6/uL (4.00-5.40); RDW 23.6 % (11.5-14.5)
[2016-12-11 12:26] LABS: PLATELET COUNT 177 10x3/uL (130-400)
[2016-12-11 12:35] LABS: APTT 36.3 SECONDS (22.8-39.4); INR 1.43 (0.85-1.17); PROTIME 17.4 SECONDS (11.6-15.0)
[2016-12-11 12:40] LABS: HCG SERUM NEGATIVE (NEGATIVE)
--- NOTE | 2016-12-11 15:45 | NUR ---
PATIENT RECEIVED TO ROOM 1216 SHE IS AWAKE AND ALERT, ABLE TO GET INTO HER BED INDEPENDENTLY. HER PANTIES AND HOSPITAL GOWN ARE BLOODIED. VSS. WILL KEEP HER NPO FOR NOW. SHE VOICED UNDERSTANDING.
[2016-12-11 16:00] VITALS: BP 117/71
--- NOTE | 2016-12-11 16:10 | NUR ---
ASSISTED HER INTO THE SHOWER AND INTO A CLEAN GOWN. SHE JUST WANTED TO RINSE HER LOWER EXTREMITIES. WE DISCUSSED THE PROCESS OF DOING A PAD COUNT AND SHE EXPRESSED UNDERSTANDING TO CHANGE HER PAD HOURLY AND REPORT AMT OF DISCHARGE.
--- NOTE | 2016-12-11 17:05 | NUR ---
PATIENT SITTING UP IN HER BED TALKING WITH PHYSICIAN AT THE BEDSIDE. AND SISTER IN LAW AT THE BEDSIDE. NO NEEDS NOTED.
[2016-12-11 17:20] LABS: HEMATOCRIT 29.9 % (36.0-48.0)
--- NOTE | 2016-12-11 18:22 | NUR ---
PATIENT SITTING UP IN HER BED IN HI FOWLERS. DENIES NEEDS. SHE IS BACK TO BED AFTER CHANGING HER PERIPAD PER MY REQUEST. SHE SATURATED 1/2 OF A PERIPAD AND PASSED A QUARTER SIZED BLOOD CLOT. VITAMIN K GIVEN IN THE BACK OF HER LEFT UPPER ARM. EXPLAINED IT'S ACTION. AT THE BEDSIDE. THEY ARE ANXIOUS FOR POC.
--- NOTE | 2016-12-11 19:30 | NUR ---
DR. PETTIT IN ROOM WITH PT AT THIS TIME. PT DENIES NEEDS. BED LOW. PHONE AND CALL LIGHT IN REACH. SRX2.
[2016-12-11 20:35] VITALS: BP 123/66
--- NOTE | 2016-12-11 20:37 | NUR ---
PT RECEIVED LYING IN BED TALKING ON PHONE AT THIS TIME. VSS. IV NOTED TO LEFT FOREARM INFUSING NS @ 100 CC/HR. PATENT. DRESSING CDI. HEART RRR. LUNG SOUNDS CLEAR BILATERALLY. BOWEL SOUNDS ACTIVE X4 QUADRENTS. ABDOMEN SOFT NON-TENDER. LIGHT AMOUNT OF BLOOD NOTED TO ABEBE PAD AT THIS TIME. PT DENIES PAIN AT THIS TIME. PEDAL PULSES EQUAL BILATERALLY. PT REQUESTS TEA AND SANDWICH TRAY AT THIS TIME. DENIES OTHER NEEDS. BED LOW. PHONE AND CALL LIGHT IN REACH. SRX2.
--- NOTE | 2016-12-11 21:02 | NUR ---
PT SITTING UP IN BED WATCHING TV AT THIS TIME. DENIES NEEDS. BED LOW. PHONE AND CALL LIGHT IN REACH. SRX2.
--- NOTE | 2016-12-11 22:45 | NUR ---
PT RESTING QUIETLY WATCHING TV AT THIS TIME. DENIES NEEDS. BED LOW. PHONE AND CALL LIGHT IN REACH. SRX2.
[2016-12-11 23:40] VITALS: BP 134/71
--- NOTE | 2016-12-11 23:40 | NUR ---
PT RESTING QUIETLY AT THIS TIME. VSS. PT DENIES NEEDS. BED LOW. PHONE AND CALL LIGHT IN REACH. SRX2.
[2016-12-11 23:56] LABS: HEMATOCRIT 26.9 % (36.0-48.0); HEMOGLOBIN 8.3 g/dL (12-16)
[2016-12-12] VITALS (12 sets, daily range): BP systolic 97–149; BP diastolic 62–77; BMI 28.0
--- NOTE | 2016-12-12 00:43 | NUR ---
SPOKE WITH DR. GIPSON CONCERNING PTS HGB OF 8.3. SHE STATES TO INFUSE 2 UNITS PRBCS.
--- NOTE | 2016-12-12 01:10 | NUR ---
PT VITAL SIGNS TAKEN AT THIS TIME. BP-147/70 PULSE-92 O2 SAT-95% ROOM AIR TEMP-99.7 ORALLY
--- NOTE | 2016-12-12 01:46 | NUR ---
FIRST UNIT OF PRBCS INITIATED AT THIS TIME. PT VITAL SIGNS REMAIN STABLE.
--- NOTE | 2016-12-12 03:01 | NUR ---
PT RESTING QUIETLY AT THIS TIME WITH EYES CLOSED. AROUSED EASILY. VITAL SIGNS REMAIN STABLE. DENIES NEEDS. BED LOW. PHONE AND CALL LIGHT IN REACH. SRX2.
--- NOTE | 2016-12-12 03:49 | NUR ---
PT RESTING QUIETLY AT THIS TIME WITH EYES CLOSED. AROUSED EASILY. LIGHT AMOUNT OF BLOOD NOTED TO ABEBE PAD AT THIS TIME. PT DENIES NEEDS. BED LOW. PHONE AND CALL LIGHT IN REACH. SRX2.
--- NOTE | 2016-12-12 05:26 | NUR ---
INFUSION OF PRBCS COMPLETE AT THIS TIME. PT VITAL SIGNS REMAIN STABLE. PT RESTING QUIETLY WITH EYES CLOSED. RESPIRATIONS EVEN, NON-LABORED. NO ACUTE DISTRESS NOTED AT THIS TIME. BED LOW. PHONE AND CALL LIGHT IN REACH. SRX2.
--- NOTE | 2016-12-12 06:42 | NUR ---
PT RESTING QUIETLY AT THIS TIME WITH EYES CLOSED. AROUSED EASILY. PT DENIES NEEDS AT THIS TIME. BED LOW. PHONE AND CALL LIGHT IN REACH. SRX2.
--- NOTE | 2016-12-12 07:30 | NUR ---
2ND UNIT OF PRBC INITIATED. VSS. PATIENT ALERT AND ASKING QUESTIONS R/T HER POC FOR THE DAY. EXPLAINED THAT WOULD HAVE TO EVALUATE HER THIS MORNING TO MAKE DECISIONS. SHE C/O SOME BACK PAIN THAT WAS RELIEVED BY NORCO LAST NIGHT. OTHERWISSE, SHE DENIES NEEDS AND UNDERSTANDS THAT SHE IS TO BE NPO THIS MORNING.
--- NOTE | 2016-12-12 08:34 | NUR ---
TAMARA IS RESTING IN HER BED, EYES CLOSED, RESPIRATIONS SHALLOW AND EVEN. BLOOD CONTINUES TO INFUSE AND VITAL SIGNS ARE STABLE.
--- NOTE | 2016-12-12 10:26 | NUR ---
PATIENT'S BLOOD INFUSION COMPLETE. SHE REMAINS WITHOUT EVIDENCE OF ADVERSE REACTIONS. MRI QUESTIONAIRE GIVEN TO ER TO BE FILLED OUT. NOTIFIED MRI THAT TEST IS COMPLETE.
--- NOTE | 2016-12-12 10:50 | NUR ---
PATIENT UP TO THE RESTROOM INDEPENDENTLY. SHE HAS SATURATED A PERIPAD BUT STATES THAT SHE HASN'T CHANGED IT SINCE LAST NIGHT. SHE VOIDED 300CC AND STATES THAT THIS IS THE FIRST TIME SHE HAS BEEN UP TO THE RESTROOM SINCE LAST NIGHT. WHEN GETTING BACK INTO BED, NOTED HER LEGS BEING DUSKY, EQUALLY. SHE DENIED PAIN BUT SAYS THAT THEY ACHE AT TIMES. DENIED HER BACK HURTING. STATES THAT THE PAIN MEDICATION HELPS. IVF INFUSING TO HER LEFT AC. GENERALIZED EDEMA NOTED WELL. LEFT LEG IS MORE PUFFY WITH 1+ PITTING EDEMA NOTED.
[2016-12-12 12:46] LABS: BASOPHILS 0 % (0-2); EOSINOPHILS 2.4 % (0-7); IMMATURE GRANULOCYTES 0.2 % (0-5); LYMPHOCYTES 18.2 % (15-50); MCH 25.8 pg (26.0-34.0); MCHC 31.6 g/dL (31.0-37.0); MCV 81.6 fL (80.0-100.0); MEAN PLATELET VOLUME 10.1 fL (7.4-10.4); MONOCYTES 10.4 % (2-11); NEUTROPHILS 68.8 % (40-80); RDW 22.2 % (11.5-14.5); WBC 4.9 10x3/uL (4.8-10.8)
[2016-12-12 12:47] LABS: HEMATOCRIT 35.1 % (36.0-48.0); HEMOGLOBIN 11.1 g/dL (12-16); PLATELET COUNT 141 10x3/uL (130-400)
[2016-12-12 14:46] LABS: INR 1.27 (0.85-1.17); PROTIME 15.8 SECONDS (11.6-15.0)
[2016-12-12 15:46] LABS: CALC OSMOLALITY 271 mosm/kg (275-300); CALCIUM 8.2 mg/dL (8.5-10.1); CARBON DIOXIDE 26.9 mmol/L (21.0-32.0); CHLORIDE - SERUM 103 mmol/L (98-107); CREATININE - SERUM 0.8 mg/dL (0.6-1.3); GLUCOSE 95 mg/dL (74-106); POTASSIUM - SERUM 3.9 mmol/L (3.5-5.1); SODIUM 137 mmol/L (136-145); UREA NITROGEN 8 mg/dL (7-18); eGFR NON AFRICAN AMERICAN 81 mL/min (90-120)
--- NOTE | 2016-12-12 16:45 | NUR ---
PATIENT OFF THE UNIT TO INTERVENTIONAL RADIOLOGY. SHE HAS HAD A ALLEN PLACED AND IV ACCESS PLACED IN THE RIGHT AC. SHE UNDERSTANDS THE PROCEDURE PLANNED AND IS WITHOUT QUESTIONS.,
--- NOTE | 2016-12-12 19:30 | NUR ---
ASSESSMENT DONE. PT LAYING FLAT. COAT EXAMINER DILAUDID IS CURRENTLY BEING PLACED. DRESSING TO RIGHT GROIN IS CLEAN, DRY, AND INTACT. NO S/S OF HEMATOMA. FOLY CATH PATENT TO BSD WITH DARK YELLOW URINE. RESP EVEN AND UNLABORED. RIGHT PEDAL PULSE PALPABLE. GENERALIZED EDEMA NOTED TO EXTREMITY. PT A/O X3. EDUCATED PT AND FAMILY THAT SHE IS TO LAY FLAY AND REFRAIN FROM MOVING RT LEG TO 3HRS. UNDERSTANDING WAS VERBALIZED. CALL LIGHT WITH IN REACH. WILL CONT. TO MONITOR.
[2016-12-12 20:21] LABS: BASOPHILS 0.1 % (0-2); EOSINOPHILS 0.2 % (0-7); HEMATOCRIT 35.6 % (36.0-48.0); HEMOGLOBIN 11.2 g/dL (12-16); IMMATURE GRANULOCYTES 0.2 % (0-5); LYMPHOCYTES 4.2 % (15-50); MCH 25.7 pg (26.0-34.0); MCHC 31.5 g/dL (31.0-37.0); MCV 81.8 fL (80.0-100.0); MEAN PLATELET VOLUME 10.1 fL (7.4-10.4); MONOCYTES 3.2 % (2-11); NEUTROPHILS 92.1 % (40-80); PLATELET COUNT 136 10x3/uL (130-400); RBC 4.35 10x6/uL (4.00-5.40); RDW 22.1 % (11.5-14.5); WBC 8.4 10x3/uL (4.8-10.8)
--- NOTE | 2016-12-12 22:45 | NUR ---
PT SITTING UP WITH HOB ELEVATED 60 DEGREES. DRESSING TO RT GROIN REMAIN CLEAN, DRY, AND INTACT. NO S/S OF HEMATOMA NOTED. PT STATES PAIN IS IMPROVING, AND WHEN ASKED TO RATE PAIN SHE STATES "I DON'T KNOW." RT PEDAL PULSE WEAK BUT PALPABLE. BOTH LE COOL TO TOUCH, D/T TO TEMP OF ROOM, AND PT IS COVERED WITH A SHEET ONLY. WILL CONT. TO MONITOR. PT REQUEST JELLO AND WATER. PT REFUSES TO HAVE ALLEN REMOVED TONIGHT. STATES SHE WANTS TO STAY IN BED TONIGHT AND NOT AMBULATE. CALL LIGHT WITH INREACH. FAMILY ASLEEP AT BEDSIDE. WILL CONT. TO MONITOR.
--- NOTE | 2016-12-13 00:15 | NUR ---
PT SLEEPING. HOB SLIGHTLY ELEVATED. PT APPEARS COMFORTABLE. RESP EVEN AND UNLABORED. DRESSING TO RT STACY WNL. NO S/S OF HEMATOMA. RT PEDAL PULSE PALPABLE. CALL LIGHT WITH IN REACH. WILL CONT. TO MONITOR.
--- NOTE | 2016-12-13 02:34 | NUR ---
PT SLEEPING. EYES CLOSED, RESP EVEN AND UNLABORED. APPEARS COMFORTABLE. NO BLEEDING OR HEMATOMA NOTED TO PT'S RT GROIN. CALL LIGHT WITH IN REACH. WILL CONT. TO MONITOR.
--- NOTE | 2016-12-13 04:36 | NUR ---
ALLEN CATH REMOVED. PT HAS APPROX 40ML IN ALLEN BAG. PT C/O ABD. AFTER CATH REMOVED PT AMBULATED WITH STANDBY ASSIST TO RESTROOM. HAT IN TOILET. PT URINATED APPROX 400ML OF DARK RED URINE. PT DENIES DIZZINESS WHILE AMBULATING. GAIT STEADY. DRESSING TO RT GROIN WNL, NO S/S OF HEMATOMA. RT PEDAL PULSE PALPABLE. PT GIVEN DEPENDS TO WEAR FOR UTERIAN BLEEDING. SHEET AND PAD CHANGED. PT REQUEST TEA TO DRINK. CALL LIGHT WITH IN REACH. SPOUSE AT BEDSIDE. WILL CONT. TO MONITOR.
[2016-12-13 05:01] LABS: BASOPHILS 0 % (0-2); EOSINOPHILS 0 % (0-7); HEMATOCRIT 35.6 % (36.0-48.0); HEMOGLOBIN 11.2 g/dL (12-16); IMMATURE GRANULOCYTES 0.3 % (0-5); LYMPHOCYTES 6.4 % (15-50); MCH 25.6 pg (26.0-34.0); MCHC 31.5 g/dL (31.0-37.0); MCV 81.5 fL (80.0-100.0); MONOCYTES 4.4 % (2-11); NEUTROPHILS 88.9 % (40-80); RBC 4.37 10x6/uL (4.00-5.40); RDW 22.1 % (11.5-14.5)
[2016-12-13 05:09] LABS: PLATELET COUNT 168 10x3/uL (130-400); WBC 5.9 10x3/uL (4.8-10.8)
[2016-12-13 05:11] VITALS: BP 157/89
--- NOTE | 2016-12-13 06:47 | NUR ---
OUTREACH WORKER DILAUDID CLEARED. PT USED 13.5ML THIS SHIFT.
[2016-12-13 09:56] LABS: BASOPHILS 0.1 % (0-2); EOSINOPHILS 0.1 % (0-7); HEMATOCRIT 35.1 % (36.0-48.0); HEMOGLOBIN 11.2 g/dL (12-16); IMMATURE GRANULOCYTES 0.4 % (0-5); LYMPHOCYTES 5.6 % (15-50); MCHC 31.9 g/dL (31.0-37.0); MCV 81.4 fL (80.0-100.0); MEAN PLATELET VOLUME 10.2 fL (7.4-10.4); MONOCYTES 6.7 % (2-11); NEUTROPHILS 87.1 % (40-80); PLATELET COUNT 169 10x3/uL (130-400); RBC 4.31 10x6/uL (4.00-5.40); RDW 22.2 % (11.5-14.5)
[2016-12-13 09:59] LABS: WBC 7.9 10x3/uL (4.8-10.8)
--- NOTE | 2016-12-13 10:14 | NUR ---
0700- AM ROUNDING, RECEIVED REPORT FROM CONE PICKER NURSE PEACE. PT IS CURRENTLY LAYING IN BED ON BACK WITH EYES OPEN RESTING. AT BEDSIDE. ALERT AND ORIENTED. IV SEEN TO RIGHT AC WITH NS RUNNING AT KVO (30). SERVICE WORKER PUMP WITH DILAUDID GOING ORDERED (0.2MG Q10MIN WITH A 4.8MG Q4H LOCKOUT). BLE ARE SWOLLEN. CLEAN, DRY, AND INTACT DRESSING SEEN TO RIGHT GROIN AREA. NO NEED AT CURRENT TIME. WILL CONTINUE TO MONITOR AND CONTINUE WITH PLAN OF CARE.
[2016-12-13 10:48] VITALS: BP 130/89
--- NOTE | 2016-12-13 12:13 | NUR ---
PT IS WEARING A BRIEF. ASKED PT IF SHE HAS CHANGED HER BRIEF YET, PT STATES "NO". PT STATES SHE HAS HAD JUST A SMALL AMOUNT OF BLEEDING. WILL CONTINUE TO MONITOR.
[2016-12-13 13:59] VITALS: BP 130/90
[2016-12-13 15:53] LABS: BASOPHILS 0.1 % (0-2); EOSINOPHILS 0.1 % (0-7); HEMATOCRIT 34.4 % (36.0-48.0); HEMOGLOBIN 10.8 g/dL (12-16); IMMATURE GRANULOCYTES 0.1 % (0-5); LYMPHOCYTES 7.5 % (15-50); MCH 25.7 pg (26.0-34.0); MCHC 31.4 g/dL (31.0-37.0); MCV 81.7 fL (80.0-100.0); MEAN PLATELET VOLUME 9.6 fL (7.4-10.4); MONOCYTES 7.5 % (2-11); NEUTROPHILS 84.7 % (40-80); PLATELET COUNT 151 10x3/uL (130-400); RBC 4.21 10x6/uL (4.00-5.40); RDW 22.1 % (11.5-14.5); WBC 8.9 10x3/uL (4.8-10.8)
[2016-12-13 16:51] VITALS: BP 151/93
[2016-12-13 18:31] LABS: INR 1.16 (0.85-1.17); PROTIME 14.7 SECONDS (11.6-15.0)
[2016-12-13 19:30] LABS: HEMATOCRIT 33.7 % (36.0-48.0); HEMOGLOBIN 10.8 g/dL (12-16); MCH 25.8 pg (26.0-34.0); MCV 80.6 fL (80.0-100.0); MEAN PLATELET VOLUME 10.3 fL (7.4-10.4); RBC 4.18 10x6/uL (4.00-5.40); RDW 22.2 % (11.5-14.5); WBC 9.4 10x3/uL (4.8-10.8)
[2016-12-13 20:00] VITALS: BP 138/76
--- NOTE | 2016-12-13 20:06 | NUR ---
HEPARIN DRIP INITIATED AT 1300 UNITS HR AND 5000 UNIT BOLUS GIVEN. ON PROTOCOL AND WILL HAVE LAB DRAW IN 6 HOURS.
[2016-12-13 21:54] LABS: BASOPHILS 0.1 % (0-2); EOSINOPHILS 0.3 % (0-7); HEMATOCRIT 32.7 % (36.0-48.0); HEMOGLOBIN 10.5 g/dL (12-16); IMMATURE GRANULOCYTES 0.2 % (0-5); LYMPHOCYTES 9.3 % (15-50); MCH 25.7 pg (26.0-34.0); MCHC 32.1 g/dL (31.0-37.0); MEAN PLATELET VOLUME 9.5 fL (7.4-10.4); MONOCYTES 5.6 % (2-11); NEUTROPHILS 84.5 % (40-80); PLATELET COUNT 165 10x3/uL (130-400); RBC 4.09 10x6/uL (4.00-5.40); RDW 21.9 % (11.5-14.5)
--- NOTE | 2016-12-13 23:02 | NUR ---
PERCOCET 1 TAB GIVEN AT PT REQUEST FOR C/O PAIN.
[2016-12-14] VITALS (7 sets, daily range): BP systolic 114–147; BP diastolic 62–82
--- NOTE | 2016-12-14 02:34 | NUR ---
RESTING WITH EYES CLOSED, RESPERATIONS EVEN, NO S/S DISTRESS NOTED.
[2016-12-14 02:55] LABS: HEMATOCRIT 32.9 % (36.0-48.0); HEMOGLOBIN 10.4 g/dL (12-16); MCH 25.2 pg (26.0-34.0); MCHC 31.6 g/dL (31.0-37.0); MCV 79.9 fL (80.0-100.0); MEAN PLATELET VOLUME 10.4 fL (7.4-10.4); RBC 4.12 10x6/uL (4.00-5.40)
[2016-12-14 02:58] LABS: WBC 6.5 10x3/uL (4.8-10.8)
--- NOTE | 2016-12-14 08:00 | NUR ---
CHARTS CHECKED. SHIFT ASSESSMENT COMPLETED. INTRODUCED MYSELF TO PT PRIMARY RN FOR TODAYS SHIFT. PT RESTING QUIETLY AND DENIES ANY CURRENT NEEDS AT THIS TIME. CL IN REACH. WILL CTM.
--- NOTE | 2016-12-14 11:02 | NUR ---
D/C PTS DILAUDID HAT LINING PASTER PUMP ORDERED. WASTED 15ML WITH WITNESS OF COLTEN JASSO INTO BLUE [facility] BIN. INCREASED HEPARIN DRIP BY 100 UNITS PER PTT PROTOCOL. HEPARIN INFUSING @16ML/HR VIA R.AC PIV SITE WITH LITA CDI AND SWAB CAPS IN USE. PT IS NOW ABLE TO EAT AND FOOD HAS BEEN ORDERED. PT VOICED THANKS AND DENIES ANY CURRENT NEEDS. CL IN REACH, BED IN LOWEST, SIDE RAILS X2. WILL CPOC.
--- NOTE | 2016-12-14 16:40 | NUR ---
PTT BACK AND PTS HEPARIN DRIP TO BE INCREASED BY 100UNITS. PTS DRIP NOW INFUSING @17ML/HR. PT ALSO C/O ABDOMINAL CRAMPS REQUESTING AND PROVIDED WITH PRN PAIN MEDICATION. PT DENIES ANY FURTHER NEEDS AT THIS TIME. CL IN REACH. WILL CPOC.
--- NOTE | 2016-12-14 19:31 | NUR ---
RESUMED CARE OF PT, LYING IN BED RESPIRATIONS EVEN AND UNLABORED ON ROOM AIR. RIGHT AC INFUSING HEPARIN @ 17. NO NEEDS VOICED AT THIS TIME. WILL CONTINUE TO MONITOR. SEE NURSE ASSESSMENT. CALL LIGHT IN REACH.
--- NOTE | 2016-12-15 00:54 | NUR ---
LYING IN BED WITH EYES CLOSED, CALL LIGHT IN REACH. WILL CONTINUE WITH PLAN OF CARE.
[2016-12-15 03:23] VITALS: BP 120/70
[2016-12-15 06:16] LABS: HEMATOCRIT 32.7 % (36.0-48.0); HEMOGLOBIN 10.2 g/dL (12-16); MCH 25.4 pg (26.0-34.0); MCHC 31.2 g/dL (31.0-37.0); MCV 81.5 fL (80.0-100.0); PLATELET COUNT 167 10x3/uL (130-400); RBC 4.01 10x6/uL (4.00-5.40); RDW 22.1 % (11.5-14.5)
[2016-12-15 06:27] LABS: WBC 8.6 10x3/uL (4.8-10.8)
--- NOTE | 2016-12-15 07:17 | NUR ---
PT SITTING UP IN BED DENIES NEEDS WILL CONT TO MONITOR PT PTT WAS 91.3, HOLDING PUMP FOR 30 MINUTES ORDERED. WILL ADJUST PUMP IN 30 MINS.
[2016-12-15 08:33] VITALS: BP 119/66
--- NOTE | 2016-12-15 10:33 | NUR ---
PT WAS GIVEN CLEAN CATCH CUP TO OBTAIN URINE SPECIMEN AND EXPLAINED TO PT HOW TO OBTAIN CLEAN CATCH
[2016-12-15 12:00] VITALS: BP 125/81
[2016-12-15 13:59] LABS: APPEARANCE CLEAR (CLEAR); BILIRUBIN NEGATIVE (NEGATIVE); COLOR YELLOW (YELLOW); GLUCOSE NEGATIVE (NEGATIVE); KETONE SMALL mg/dL (NEGATIVE); NITRITE NEGATIVE (NEGATIVE); PROTEIN NEGATIVE (NEGATIVE); SPECIFIC GRAVITY 1.015 (1.005-1.020); UROBILINOGEN NORMAL (NORMAL)
[2016-12-15 14:02] LABS: BACTERIA FEW /hpf (NONE SEEN); EPITHELIAL CELLS 0-5 /hpf (0-5); LEUKOCYTE ESTERASE TRACE (NEGATIVE); MUCUS >1+ /lpf (NONE SEEN); RED CELLS - URINE 0-5 /hpf (0-5); WHITE CELLS - URINE 0-5 /hpf (0-5)
--- NOTE | 2016-12-15 15:15 | NUR ---
PT PTT CAME BACK 54.1 FOLLOWED HEPARIN FLOWSHEET PROTOCOL. PT IS NOW BACK UP TO 16 CC/HR.
[2016-12-15 16:00] VITALS: BP 116/72
--- NOTE | 2016-12-15 18:24 | NUR ---
PT SITTING UP IN BED VISITORS AT BEDSIDE DENIES NEEDS
[2016-12-15 20:10] VITALS: BP 108/70
[2016-12-16] VITALS (7 sets, daily range): BP systolic 100–154; BP diastolic 60–81
[2016-12-16 00:28] LABS: HEMATOCRIT 30.1 % (36.0-48.0); HEMOGLOBIN 9.5 g/dL (12-16); MCH 25.2 pg (26.0-34.0); MCHC 31.6 g/dL (31.0-37.0); MCV 79.8 fL (80.0-100.0); RBC 3.77 10x6/uL (4.00-5.40); WBC 8.7 10x3/uL (4.8-10.8)
--- NOTE | 2016-12-16 04:28 | NUR ---
NURSE ROUNDS 21:30 12/15/16 - PT LYING IN BED, AWAKE, ALERT, ORIENTED, READING A BOOK, DENIES ANY ACUTE NEEDS. PT STATES VAGINAL BLEEDING IS MINIMAL AT THIS POINT, ONLY SPOTTING. PT DOES HAVE LOWER ABDOMINAL/PELVIC PAIN RELIEVED WITH PRN PERCOCET. PT DENIES ANY OTHER NEEDS. CONTINUE TO MONITOR CLOSELY. BED LOW, CALL LIGHT IN REACH, SIDE RAILS X 2, HOB 20 DEGREES. HEPARIN GTT AT 16MLS/HR PER HEPARIN PROTOCOL.
--- NOTE | 2016-12-16 06:53 | NUR ---
PT IS NAUSEATED WITH PERCOCET, PRN ZOFRAN GIVEN WITH A POPSCICLE. PT C/O BEING COLD AND NOT BEING ABLE TO TOLERATE THE COLD WELL. WARM BLANKET PROVIDED EARLIER IN SHIFT. CONTINUE TO MONITOR CLOSELY.
[2016-12-16 06:55] LABS: BASOPHILS 0.1 % (0-2); EOSINOPHILS 1.3 % (0-7); HEMATOCRIT 31.4 % (36.0-48.0); HEMOGLOBIN 9.9 g/dL (12-16); IMMATURE GRANULOCYTES 0.4 % (0-5); LYMPHOCYTES 6.5 % (15-50); MCH 25.6 pg (26.0-34.0); MCHC 31.5 g/dL (31.0-37.0); MCV 81.3 fL (80.0-100.0); MEAN PLATELET VOLUME 9.6 fL (7.4-10.4); MONOCYTES 4.8 % (2-11); NEUTROPHILS 86.9 % (40-80); PLATELET COUNT 208 10x3/uL (130-400); RBC 3.86 10x6/uL (4.00-5.40); RDW 22.1 % (11.5-14.5); WBC 8.5 10x3/uL (4.8-10.8)
[2016-12-16 07:04] LABS: CALC OSMOLALITY 268 mosm/kg (275-300); CALCIUM 8.6 mg/dL (8.5-10.1); CARBON DIOXIDE 28.2 mmol/L (21.0-32.0); CHLORIDE - SERUM 101 mmol/L (98-107); CREATININE - SERUM 0.7 mg/dL (0.6-1.3); GLUCOSE 106 mg/dL (74-106); POTASSIUM - SERUM 3.6 mmol/L (3.5-5.1); SODIUM 136 mmol/L (136-145); UREA NITROGEN 5 mg/dL (7-18); eGFR NON AFRICAN AMERICAN > 90 mL/min (90-120)
--- NOTE | 2016-12-16 07:30 | NUR ---
RECEIVED REPORT FROM SELF SEALING FUEL TANK REPAIRER NURSE, TOY ABEL. PT IN BED, STATES THAT SHE IS HURTING ON LOWER ABD. PT RECEIVED PAIN MEDS AROUND 0530. HELPED PT TO BATHROOM. PT DENIES ANY OTHER NEEDS AT THIS TIME. CALL LIGHT IN REACH, NAD NOTED, WILL CONTINUE TO MONITOR.
--- NOTE | 2016-12-16 08:54 | NUR ---
ADMINISTERED MORNING MEDICATIONS, AND MIRALAX, PER PT REQUEST. PT AKSKED ABOUT PAIN MEDS. INFOMED PT THAT SHE CAN HAVE PAIN MED AROUND 0930. PT DENIES ANY OTHER NEEDS AT THIS TIME. CALL LIGHT IN REACH, NAD NOTED, WILL CONTINUE TO MONITOR.
--- NOTE | 2016-12-16 09:53 | NUR ---
ADMINISTERED 10MG OF PERCOCET FOR PAIN LEVEL OF 10/10. PT DENIES ANY OTHER NEEDS AT THIS TIME. CALL LIGHT IN REACH, NAD NOTED, WILL CONTINUE TO MONITOR.
--- NOTE | 2016-12-16 10:46 | NUR ---
ADMINISTERED TORADOL 30MG SCHEDULED. PT DENIES ANY OTHER NEEDS AT THIS TIME. CALL LIGHT IN REACH, NAD NOTED, WILL CONT TO MONITOR.
--- NOTE | 2016-12-16 14:11 | NUR ---
ADMINISTERED 10MG OF PERCOCET FOR PAIN LEVEL OF 5/10. PT IN BED, DENIES ANY OTHER NEEDS AT THIS ITME. CALL LIGHT IN REACH, NAD NOTED, WILL CONTINUE TO MONITOR.
--- NOTE | 2016-12-16 16:21 | NUR ---
Patient Name: SKYLAR HAMPTON Admission Status: ER Accout number: [id number] Admission Date: 12-11-2016 : 1965 Admission Diagnosis: Attending: NANCY Current LOS: 5 Anticipated DC Date: TO BE DETERMINED Planned Disposition: Home Primary Insurance: UNINSURED DISCOUNT PLAN Discharge Planning Comments: * Is the patient Alert and Oriented? Yes 0 * How many steps to enter\exit or inside your home? 5 0 * PCP DR. BUTCHER 0 * Pharmacy [address] 0 * Preadmission Environment Home with Family 0 * ADLs Independent 0 * Equipment None 0 * Other Equipment NO MEDICAL EQUIPMENT PROVIDER PREFERENCE 0 * List name and contact numbers for known caregivers / representatives who currently or will assist patient after discharge: STEFAN HAMPTON, SPOUSE, 0 * Community resources currently utilized None 0 * Please name any agencies selected above. NONE 0 * Additional services required to return to the preadmission environment? No 0 * Can the patient safely return to the preadmission environment? Yes 0 * Has this patient been hospitalized within the prior 30 days at any hospital? Yes 0 CM MET WITH PT IN ROOM TO DISCUSS DISCHARGE PLANNING AND NEEDS. PT REPORTS LIVING AT HOME INDEPENDENTLY WITH HER SPOUSE. PT HAS NO MEDICAL EQUIPMENT AND NO OUTSIDE SERVICES ASSISTING IN THE HOME. AFTER HER LAST DISCHARGE, PT STAYED WITH FAMILY DURING THE DAY WHILE HER SPOUSE WAS AT WORK. CM DISCUSSED AVAILABILITY OF HOME HEALTH, REHAB SERVICES AND MEDICAL EQUIPMENT. PT DENIES DISCHARGE NEEDS, REPORTS HER SPOUSE WILL PICK HER UP FOR DISCHARGE HOME. PT HAS MET WITH HOSPITAL STAFF REGARDING MEDICAID ELIGIBILITY AND WAS INITIALLY TOLD THAT THEY MAKE TOO MUCH TO QUALIFY FOR MEDICAID, BUT PT PLANS TO FOLLOW UP WITH THE [facility] DEPARTMENT OF HUMAN SERVICES OFFICE, WHERE SHE KNOWS SOMEONE THAT WORKS THERE, TO SEE IF SHE MAY QUALIFY FOR ASSISTANCE THROUGH MEDICAID. PT PLANS TO DISCHARGE HOME WITH SPOUSE, DENIES DISCHARGE NEEDS AT THIS TIME. CM TO FOLLOW AND ASSIST IF NEEDED. Tetryl Nitrator Operator: Walter Toussaint
--- NOTE | 2016-12-16 18:04 | NUR ---
LOVENOX 80MG GIVEN AT THIS TIME. HEPARIN DRIP STOPPED AT THIS TIME, PER DR'S ORDER. PT STATES THAT COMPRESSION STOCKING ARE MAKING THE FLUID MOVE TO HER HIPS AND STATED THAT SHE IS GOING TO TAKE THEM OFF. PT DENIES ANY OTHER NEEDS AT THIS TIME. CALL LIGHT IN REACH, NAD NOTED, WILL CONTINUE TO MONITOR.
--- NOTE | 2016-12-16 22:53 | NUR ---
NURSING ROUNDS 21:00 - PT AWAKE, ALERT, ORIENTED, ON CELL PHONE WHEN I ENTERED. PT STATES HER PAIN IS BETTER CONTROLLED TODAY AND NAUSEA HAS RESOLVED. PT DENIES ANY ACUTE NEEDS. CONTINUE TO MONITOR CLOSELY. BED LOW, CALL LIGHT IN REACH, SIDE RAILS X 2, HOB 30 DEGREES.
--- NOTE | 2016-12-17 01:53 | NUR ---
PT CALLED FOR PRN PERCOCET, STATES HER PAIN IS WELL CONTROLLED AT THIS TIME. PT DID EAT A FEW POTATO CHIPS TO PREVENT NAUSEA FROM PERCOCET. DENIES ANY OTHER NEEDS. CONTINUE TO MONITOR CLOSELY.
[2016-12-17 03:42] VITALS: BP 103/57
--- NOTE | 2016-12-17 04:35 | NUR ---
PT LYING IN BED, EYES CLOSED, RESPIRATIONS EVEN AND UNLABORED. PT EASILY ROUSABLE TO VERBAL STIMULI, STATES HER PAIN IS WELL CONTROLLED AT THIS TIME. PT DENIES NAUSEA. CONTINUE TO MONITOR CLOSELY.
[2016-12-17 08:53] VITALS: BP 114/58
--- NOTE | 2016-12-17 10:53 | NUR ---
0715- AM ROUNDING- RECEIVED REPORT FROM PERSONAL FINANCIAL REPRESENTATIVE NURSE COLTEN YEAGER. PT IS CURRENTLY LAYING IN BED ON BACK WITH EYES OPEN RESTING. ALERT AND ORIENTED. IV SEEN TO RIGHT AC THAT HAS NS RUNNING AT KVO (10CC). ON ROOM AIR. NO MONITOR. SWELLING SEEN TO BILATERAL LOWER EXTREMITIES. NO NEED AT CURRENT TIME. WILL CONTINUE TO MONITOR AND CONTINUE WITH PLAN OF CARE.
--- NOTE | 2016-12-17 10:56 | NUR ---
RYAN MALIN APPLIED TO PT ORDERED.
[2016-12-17 12:48] VITALS: BP 100/63
[2016-12-17 14:21] VITALS: Ht 165.1 cm; Wt 81.9 kg
[2016-12-17 16:21] VITALS: BP 118/67
--- NOTE | 2016-12-17 17:57 | NUR ---
PT IS CURRENTLY SITTING UP IN BED WITH EYES OPEN RESTING. PT DENIES ANY NEED AT CURRENT TIME. WILL CONTINUE TO MONITOR.
--- NOTE | 2016-12-17 19:37 | NUR ---
PT AWAKE, ALERT, ORIENTED, READING BOOK IN BED, IV FE INFUSING, ALMOST COMPLETE. PT STATES SHE IS HAVING CONSTIPATION UNRELIEVED WITH PRN MIRALAX AND PRUNE JUICE. WILL GIVE ANOTHER PRN DOSE OF MIRALAX TONIGHT. PT STATES HER PAIN IS TOLERABLE AT THIS TIME AND DOES NOT WANT PRN PERCOCET FOR NOW. WILL CONTINUE TO MONITOR CLOSELY. PT STATES HER VAGINAL BLEEDING IS MINIMAL, DARK, LIKE OLD BLOOD.
[2016-12-17 20:00] VITALS: BP 116/68
--- NOTE | 2016-12-17 22:01 | NUR ---
PT HAS HAD PRUNE JUICE X 2 TODAY WITHOUT ANY BM, STILL C/O DISCOMFORT R/T BEING CONSTIPATED AND IS ASKING FOR A SUPPOSITORY. WILL CALL FOR ORDER.
--- NOTE | 2016-12-17 22:40 | NUR ---
ORDER OBTAINED VIA TELEPHONE FOR PRN DULCOLAX SUPPOSITORY. CONTINUE TO MONITOR PT CLOSELY.
[2016-12-17 23:00] VITALS: BP 126/72
--- NOTE | 2016-12-18 01:15 | NUR ---
PT GIVEN DULCOLAX SUPP PRN FOR CONSTIPATION PER PT REQUEST. PT IS CONCERNED THAT AFTER 35 MINUTES, SHE WAS STILL UNRELIEVED WITH HER BOWELS. PTS BOWELS X 4 ARE HYPOACTIVE. 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 HER ABDOMEN IS SOFT, NONDISTENDED AT THIS POINT, BUT WITH THE LACK OF PERISTALSIS, I HAVE WARNED PT ABOUT THE POSSIBILITY OF AN ILEUS AND THE PROLONGED HOSPITAL STAY THAT WOULD ACCOMPANY SUCH THING. PT DID AMBULATE WITH MINIMAL ASSIST AND WAS ABLE TO WALK TO THE NURSES DESK AND BACK TO HER ROOM WITH MINIMAL DIFFICULTY. I EXPLAINED TO PT THAT EVEN TAKING MIRALAX AND THE SUPP, IT WAS STILL GOING TO TAKE A WHILE, MANY HOURS POSSIBLY BEFORE HER BOWELS WOULD MOVE. PT IS GROWING IMPATIENT. I HAVE ENCOURAGED PT TO CALL ME ANYTIME SHE FEELS LIKE WALKING. WE DISCUSSED THE SIDE EFFECTS OF ACUTE AND CHRONIC OPIOID USE FOR PAIN AND THE BENEFITS VS RISKS. PT HAS NOT ASKED FOR ANY PAIN MEDICATION THIS SHIFT, OR DAY SHIFT. SHE VERBALLY AGREES THAT SHE UNDERSTANDS THESE SIDE EFFECTS. PT STATES SHE IS NOT HAVING ANY ABDOMINAL/PELVIC PAIN AT THIS TIME, AND HER VAGINAL BLEEDING IS MINIMAL, DARK BROWN SPOTTING. PT ALSO C/O BOUTS OF NAUSEA, STATING IT FEELS MORE LIKE REFLUX AT THIS POINT AND IS ASKING WHY SHE IS NOT RECEIVING MEDICAL MANAGEMENT FROM HER [facility] GROUP AND STATED THAT LAST TIME SHE WAS HERE SHE WAS RECEIVING PROTONIX FOR GERD S/S. I WILL ASK THAT DR. BUTCHER'S GROUP BE CONSULTED TO AID IN MANAGING PTS EDEMA AND STOMACH ISSUES, ALONG WITH HER OTHER HOME MEDICATIONS AND HEALTH PROBLEMS. PT DENIES ANY OTHER NEEDS. CONTINUE TO MONITOR CLOSELY.
--- NOTE | 2016-12-18 02:26 | NUR ---
PT NO LONGER RECEIVING HEPARIN GTT, HEMOGRAMS AT MIDNIGHT CANCELLED. WILL ADD CBC AND BMP FOR AM LABS.
--- NOTE | 2016-12-18 02:33 | NUR ---
PER PATIENT REQUEST, CONSULT FOR DR. BUTCHER'S GROUP FOR ADDITIONAL MEDICAL MANAGEMENT. HEMOGRAM CANCELLED PER LAB R/T PT NO LONGER BEING ON HEPARIN GTT. I HAVE ORDERED AM LABS FOR CBC, BMP, AND TSH.
--- NOTE | 2016-12-18 04:36 | NUR ---
PT HAS C/O GENERALIZED WEAKNESS, FATIGUE, AND CONSTANTLY BEING COLD. PT IN NO ACUTE DISTRESS, DENIES ANY NEEDS AT THIS TIME. CONTINUE TO MONITOR CLOSELY.
[2016-12-18 05:10] VITALS: BP 104/65
[2016-12-18 05:15] LABS: BASOPHILS 0.2 % (0-2); EOSINOPHILS 0.9 % (0-7); HEMATOCRIT 29.6 % (36.0-48.0); HEMOGLOBIN 9.4 g/dL (12-16); IMMATURE GRANULOCYTES 0.7 % (0-5); LYMPHOCYTES 10.3 % (15-50); MCH 25.6 pg (26.0-34.0); MCHC 31.8 g/dL (31.0-37.0); MCV 80.7 fL (80.0-100.0); MEAN PLATELET VOLUME 9.9 fL (7.4-10.4); MONOCYTES 7.4 % (2-11); NEUTROPHILS 80.5 % (40-80); RBC 3.67 10x6/uL (4.00-5.40); RDW 22.1 % (11.5-14.5); WBC 10.2 10x3/uL (4.8-10.8)
[2016-12-18 05:26] LABS: PLATELET COUNT 321 10x3/uL (130-400)
[2016-12-18 05:46] LABS: CALC OSMOLALITY 265 mosm/kg (275-300); CALCIUM 8.2 mg/dL (8.5-10.1); CARBON DIOXIDE 29.3 mmol/L (21.0-32.0); CHLORIDE - SERUM 99 mmol/L (98-107); CREATININE - SERUM 0.8 mg/dL (0.6-1.3); GLUCOSE 105 mg/dL (74-106); POTASSIUM - SERUM 4.1 mmol/L (3.5-5.1); SODIUM 134 mmol/L (136-145); eGFR NON AFRICAN AMERICAN 81 mL/min (90-120)
[2016-12-18 05:53] LABS: UREA NITROGEN 8 mg/dL (7-18)
[2016-12-18 07:44] VITALS: BP 120/72
--- NOTE | 2016-12-18 07:45 | NUR ---
INTRODUCED MYSELF TO PT PRIMARY RN FOR TODAYS SHIFT. PT IS ALERT AND ORIENTED RESTING QUIETLY IN BED. SHIFT ASSESSMENT COMPLETED. PT HAS A R.AC PIV WITH DRSG CDI AND SWAB CAPS IN USE. PTS BILAT THIGHS DOWN TO HER FEET ARE SWOLLEN BUT PT STATES IT IS GETTING SLIGHTLY BETTER HOWEVER SHE HAS NOTICED A WEIGHT GAIN OF ABOUT 7 POUNDS AND NOT SURE IF IT WATER WEIGHT OR FLUIDS OR WHAT, WILL ADDRESS TO PRIMARY. PT IS ALSO CONCERNED ABOUT HER DOCTOR TEAM, SHE IS ADMITTED TO [facility] BUT HER PCP IS AND SHE ISNT ON HER REGULAR HOME MEDS. GROUP WAS CONSULTED FOR MEDICAL MANAGEMENT LAST NIGHT SO WE WILL ADDRESS HER CONCERNS TODAY WITH THEM. PT RESTING WITH FAMILY AT BEDSIDE AND DENIES ANY CURRENT NEEDS. CL IN REACH. WILL CPOC.
--- NOTE | 2016-12-18 10:40 | NUR ---
PT STILL C/O OF NOT HAVING BOWEL MOVEMENT. BOWEL SOUNDS ARE HYPERACTIVE X4 WITH ABDOMEN SOFT AND NONDISTENDED. PROVIDED PT WITH A "BOMB MIX" MIRALAX WITH PRUNE JUICE AND SPRITE HEATED UP SLIGHTLY, HOPEFULLY THIS WILL HELP RELIEVE HER CONSTIPATION IF NOT SHE DOES HAVE A SUPPOSITORY AVAILABLE. ENCOURAGED PT TO DRINK FLUIDS AND AMBULATE TO HELP MOVE BOWELS. PT VERBALIZED UNDERSTANDING AND STATED SHE WILL TRY. CL IN REACH, BED IN LOWEST, SIDE RAILS X2. NO FURTHER NEEDS AT THIS TIME. WILL CPOC.
[2016-12-18 12:51] VITALS: BP 125/77
--- NOTE | 2016-12-18 13:00 | NUR ---
PT FINALLY GOT RELIEF FROM LAXATIVE GIVEN EARLIER. SHE STATED SHE HAD LARGE SOFT FORMED BOWEL MOVEMENT. PT NOW SITTING UP IN BEDSIDE CHAIR RESTING COMFORTABLY WITH AT BEDSIDE. DENIES ANY CURRENT PAIN OR NEEDS. CL IN REACH. WILL CPOC.
[2016-12-18 16:26] VITALS: BP 136/77
--- NOTE | 2016-12-18 18:01 | NUR ---
PROVIDED PT WITH SCHEDULED TORADOL VIA R.FA PIV WITH DRSG CDI AND SWAB CAPS IN USE. PT SITTING UP IN BED JUST FINISHED DINNER AND STATED IT WAS GOOD, SHE IS NOW REQUESTING A COKE FLOAT SO I ORDERED HER A VANILLA SHAKE AND COKE TO TRY AND MAKE FOR HER. PT VOICED THANKS AND DENIES ANY FURTHER NEEDS AT THIS TIME. CL IN REACH, BED IN LOWEST, SIDE RAILS X2. WILL CPOC.
[2016-12-18 19:00] VITALS: BP 115/75
--- NOTE | 2016-12-18 19:20 | NUR ---
RECEIVED REPORT, PT DENIES ANY NEEDS, CALL LIGHT IN REACH, WILL CONTINUE TO MONITOR
[2016-12-18 23:00] VITALS: BP 124/72
--- NOTE | 2016-12-19 04:38 | NUR ---
ASSESSMENT COMPLETE, SEE FLOWSHEET, BED IS LOW, SRX2, CALL LIGHT IN REACH, WILL MONITOR
[2016-12-19 06:42] VITALS: BP 124/78
[2016-12-19 07:56] VITALS: BP 101/61
--- NOTE | 2016-12-19 12:22 | NUR ---
PT GOING TO BE DISCHARGED LATER THIS AFTERNOON. SHE JUST SHOWERED AND HAD LARGE BM AND ALSO THREW UP. PROVIDED PT WITH PRN ZOFRAN AND SHE IS GOING TO LAY BACK IN BED AND GIVE HER STOMACH REST AND THEN TRY TO EAT. NO FURTHER NEEDS AT THIS TIME. AT BEDSIDE, WILL CTM.
[2016-12-19 12:38] VITALS: BP 122/75
[2016-12-19] MEDS ORDERED: LOVENOX80 MG/0.8 SC (13:05)
[2016-12-19] MEDS ORDERED: IBUPROFEN800 MG PO (13:06)
--- NOTE | 2016-12-19 15:35 | NUR ---
D/C PTS R.AC PIV WITH CATHETER TIP FULLY INTACT. DISCHARGE TEACHING PROVIDED AND SELF ADMINISTRATION OF LOVENOX DEMONSTRATED FOR PT R/T IT BEING A NEW THING FOR HER TO DO. PT VERBALIZED UNDERSTANDING OF IT AND ALL DISCHARGE PAPERS AND DENIES ANY QUESTIONS OR CONCERNS. WILL CALL FOR A W/C AND TRANSPORT TO [facility] WHERE IS TO PICK HER UP.
== END 2016-12-19 15:43 | disposition home or self-care (01) | DRG 749 ==
LOC: D.ER 11:27 → D.WS 15:05 → D.M2 15:05
PROVIDERS: Emergency Medicine; Family Medicine Adult Medicine; General Practice; Internal Medicine Medical Oncology; ADMIT Specialist
PROC: 04LE3DT Occlusion of Right Uterine Artery with Intraluminal Device, Percutaneous Approach (ICD-10-PCS; 2016-12-12)
PROC: 04LF3DU Occlusion of Left Uterine Artery with Intraluminal Device, Percutaneous Approach (ICD-10-PCS; principal; 2016-12-12 17:00)
DX: N92.0 Excessive and frequent menstruation with regular cycle (principal); I26.92 Saddle embolus of pulmonary artery without acute cor pulmonale; I82.409 Acute embolism and thrombosis of unspecified deep veins of unspecified lower extremity; D62 Acute posthemorrhagic anemia; D68.59 Other primary thrombophilia; T82.868A Thrombosis due to vascular prosthetic devices, implants and grafts, initial encounter; D50.9 Iron deficiency anemia, unspecified; M35.00 Sjogren syndrome, unspecified; N85.00 Endometrial hyperplasia, unspecified; Y84.8 Other medical procedures as the cause of abnormal reaction of the patient, or of later complication, without mention of misadventure at the time of the procedure

== ENCOUNTER 2016-12-24 07:53 | Inpatient (IN) | payer SELFPAY ==
[2016-12-24] VITALS (11 sets, daily range): BP systolic 105–146; BP diastolic 51–78; Ht 165.1 cm; Wt 87.0 kg
[~2016-12-24] VITALS: Ht 165.1 cm; Wt 87.0 kg
--- NOTE | ~2016-12-24 | HEMODYNAMI ---
PATIENT:SKYLAR HAMPTON MEDICAL RECORD: [id number] : 69 LOCATION:[facility] D.2306 [facility]# [id number] ADMISSION DATE: 12/24/16 Generatedon:12/24/201613:42 Patient name: SKYLAR HAMPTON Patient #: [id number] SSN: : 1965 Date of study: 12/24/2016 Page: Of Hemodynamic Procedure Report Patient Data Patient Demographics Procedure consent was obtained First Name: SKYLAR Gender: Female Last Name: MEMO : 1965 Middle Initial: NIRALI Harris Age: 51 year(s) Patient #: [id number] Race: Unknown Additional ID: [id number] Contact details [address]: [address] [place] [address] State: [place] City: [place] Zip code: [address] Past Medical History Allergies: No known allergies Admission Admission Data Admission Date: 12/24/2016 Admission Time: 7:53 Room #: D.2306 Weight (lbs.): 175 Weight (kg.): 79.38 Procedure Procedure Types Cath Procedure Peripheral Cath Diagnostic Procedure Cath Peripheral Venography Extremity Left Lower Ext. Venagram Procedure Description Procedure Date Procedure Date: 12/24/2016 Procedure Start Time: 10:18 Procedure Staff Name Function oJsh Greene MD Performing Physician Raúl Tovar RT Scrub Renate Moctezuma RN Nurse Anjelica Christopher RN Nurse Alka Donohue RT Gas And Oil Checker Alka Donohue RT Monitor Procedure Data Cath Procedure Fluoroscopy Diagnostic fluoroscopy Total fluoroscopy Time: time: 19.8 min 19.8 min Diagnostic fluoroscopy Total fluoroscopy dose: 885 dose: 885 mGy mGy Contrast Material Contrast Material Type Amount (ml) Isovue 300 185 Procedure Medications Medication Administration Route Dosage Fentanyl I.V. 50 mcg Versed I.V. 1 mg Fentanyl I.V. 50 mcg Versed I.V. 1 mg Fentanyl I.V. 50 mcg Versed I.V. 1 mg Versed I.V. 1 mg Fentanyl I.V. 50 mcg Heparin Bolus I.V. 5000 units Versed I.V. 1 mg Fentanyl I.V. 50 mcg TPA 10 mg Versed I.V. 1 mg Fentanyl I.V. 50 mcg Ancef (1Gm/50ml NS) I.V.P.B 1 g Demerol I.V. 25 mg Heparin Bolus I.V. 5000 units Benadryl I.V. 50 mg Versed I.V. 1 mg Versed I.V. 1 mg Demerol I.V. 25 mg Heparin Drip 500 units/hr (07039mbxtj/250 D5W) Heparin Flush Bag 30 ml/hr (1000units/500ml NS) Activase(12.5mg/250 0.5 mg/hr NS) Hemodynamics Rest Heart Rate: 85 (bpm) Snapshots Pre Cath Intra NCS Post Cath Vital Signs Time Heart Resp SPO2 NIBP (mmHg) Rhythm Pain Sedation Rate (ipm) (%) Status Level (bpm) 10:02:47 87 18 100 No Cuff NSR 0 (11) 10(A) , No pain 10:06:47 84 25 100 No Cuff NSR 0 (11) 10(A) , No pain 10:10:46 86 22 100 No Cuff NSR 0 (11) 10(A) , No pain 10:14:46 90 11 99 No Cuff NSR 0 (11) 10(A) , No pain 10:19:00 89 20 99 137/78(106) NSR 0 (11) 10(A) , No pain 10:23:12 90 23 99 131/82(102) NSR 0 (11) 10(A) , No pain 10:27:26 88 21 100 127/75(96) NSR 0 (11) 10(A) , No pain 10:31:40 90 21 99 131/75(94) NSR 0 (11) 10(A) , No pain 10:35:51 88 22 100 129/77(101) NSR 0 (11) 10(A) , No pain 10:40:08 92 12 100 129/73(97) NSR 0 (11) 9(A) , No pain 10:44:15 86 10 100 120/75(89) NSR 0 (11) 9(A) , No pain 10:48:25 84 15 100 122/69(89) NSR 0 (11) 9(A) , No pain 10:52:37 85 13 100 127/72(91) NSR 0 (11) 9(A) , No pain 10:56:49 84 20 100 121/72(87) NSR 0 (11) 9(A) , No pain 11:01:03 85 21 100 118/69(88) NSR 0 (11) 9(A) , No pain 11:05:15 82 18 100 124/73(95) NSR 0 (11) 9(A) , No pain 11:09:27 80 15 100 129/71(91) NSR 0 (11) 9(A) , No pain 11:13:39 81 16 100 129/81(99) NSR 0 (11) 9(A) , No pain 11:17:53 82 9 100 132/73(102) NSR 0 (11) 9(A) , No pain 11:22:09 80 16 99 141/75(103) NSR 0 (11) 9(A) , No pain 11:26:25 77 18 99 150/85(117) NSR 0 (11) 9(A) , No pain 11:30:43 75 15 100 139/75(108) NSR 0 (11) 9(A) , No pain 11:35:01 75 18 100 140/78(109) NSR 0 (11) 9(A) , No pain 11:39:46 85 15 98 146/102(131) NSR 0 (11) 9(A) , No pain 11:43:52 100 21 97 132/114(122) ST 0 (11) 9(A) , No pain 11:48:02 106 20 98 140/93(109) ST 0 (11) 9(A) , No pain 11:53:13 113 23 98 150/116(128) ST 0 (11) 9(A) , No pain 11:56:25 105 20 100 139/95(106) ST 0 (11) 9(A) , No pain 12:00:37 100 20 100 147/91(126) ST 0 (11) 9(A) , No pain 12:05:00 98 19 100 148/73(101) NSR 0 (11) 9(A) , No pain 12:09:10 102 21 100 148/90(129) ST 0 (11) 9(A) , No pain 12:13:17 106 21 100 123/98(118) ST 0 (11) 9(A) , No pain 12:18:20 97 21 100 143/74(81) NSR 0 (11) 9(A) , No pain 12:22:41 89 23 100 142/73(103) NSR 0 (11) 9(A) , No pain 12:26:56 90 22 100 128/70(93) NSR 0 (11) 9(A) , No pain 12:31:13 89 24 100 121/69(95) NSR 0 (11) 9(A) , No pain 12:35:25 87 21 100 135/75(110) NSR 0 (11) 9(A) , No pain 12:39:34 90 18 100 133/82(99) NSR 0 (11) 9(A) , No pain 12:43:51 89 21 100 128/79(101) NSR 0 (11) 9(A) , No pain 12:48:04 89 14 100 138/78(104) NSR 0 (11) 9(A) , No pain 12:52:20 90 26 100 131/83(108) NSR 0 (11) 9(A) , No pain 12:56:32 98 21 100 142/84(102) NSR 0 (11) 9(A) , No pain 13:00:46 103 22 100 151/87(114) ST 0 (11) 9(A) , No pain 13:05:02 105 21 100 142/83(114) ST 0 (11) 9(A) , No pain 13:09:14 102 23 100 143/84(106) ST 0 (11) 9(A) , No pain 13:13:32 103 23 100 138/80(114) ST 0 (11) 9(A) , No pain 13:17:44 105 22 100 143/89(111) ST 0 (11) 9(A) , No pain 13:22:03 108 21 100 137/75(92) ST 0 (11) 9(A) , No pain 13:27:02 [address] 0 (11) 9(A) , No pain 13:28:03 110 24 98 138/79(120) ST 0 (11) 9(A) , No pain 13:32:17 106 23 100 144/86(110) ST 0 (11) 9(A) , No pain 13:36:31 102 12 100 134/82(109) ST 0 (11) 9(A) , No pain 13:40:43 100 7 100 133/85(102) ST 0 (11) 9(A) , No pain Medications Time Medication Route Dose Verified Delivered Reason Notes Effectiveness by by 10:15:16 Versed I.V. 1 mg Renate Renate for sedation Jose Elias Moctezuma RN RN 10:15:46 Fentanyl I.V. 50 mcg Renate Renate for sedation Jose Elias Moctezuma RN RN 10:35:12 Versed I.V. 1 mg Renate Renate for sedation Jose Elias Moctezuma RN RN 10:35:55 Fentanyl I.V. 50 mcg Renate Renate for sedation Jose Elias Moctezuma RN RN 10:45:03 Fentanyl I.V. 50 mcg Renate Renate for sedation Jose Elias Moctezuma RN RN 10:45:36 Versed I.V. 1 mg Renate Renate for sedation Jose Eilas Moctezuma RN RN 10:55:11 Versed I.V. 1 mg Renate Renate for sedation Jose Elias Moctezuma RN RN 11:05:16 Heparin Bolus I.V. 5000 Renate Renate for units Jose Elias aleman RN RN 11:11:10 Fentanyl I.V. 50 mcg Renate Anjelica for sedation Jose Elias Christopher RN RN 11:27:34 Versed I.V. 1 mg Renate Anjelica for sedation Jose Elias Christopher RN RN 11:27:41 Fentanyl I.V. 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 1 mg Renate Renate for sedation Jose Elias Moctezuma RN RN 11:55:23 Fentanyl I.V. 50 mcg Renate Renate for sedation Jose Elias Moctezuma RN RN 12:07:29 Ancef (1Gm/50ml NS) I.V.P.B 1 g Renate Renate Per physician Jose Elias Jose Elias RN RN 12:17:52 Demerol I.V. 25 mg Renate Renate for shivering Jose Elias Moctezuma RN RN 12:20:48 Heparin Bolus I.V. 5000 Renate Renate for units Jose Elias Moctezuma anticoagulation RN RN 12:25:29 Benadryl I.V. 50 mg Renate Renate for sedation Jose Elias [place] RN RN 12:39:08 Versed I.V. 1 mg Renate Anjelica for sedation Jose Elias Ashwin RN RN 13:07:44 Versed I.V. 1 mg Renate Anjelica for sedation Jose Elias Christopher RN RN 13:23:25 Demerol I.V. 25 mg Renate Anjelica for sedation Jose Elias Christopher COLTEN RN 13:32:10 Heparin Drip via RLE 500 Renate Anjelica for (44452affwi/250 sheath units/hr Jose Eliascandace Christopher COLTEN anticoagulation D5W) RN 13:32:59 Heparin Flush Bag via LLE 30 ml/hr Renate Anjelica for (1000units/500ml sheath Jose Eliascandace Christopher COLTEN anticoagulation NS) RN 13:39:43 Activase(12.5mg/250 via BLE 0.5 Renate Anjelica for NS) catheters mg/hr Jose Elias Christopher COLTEN anticoagulation billing clerk Log Time Note 10:01:06 Patient Weight : 175 kg 10:01:09 Time tracking: Regular hours 10:01:35 Plan of Care:Hemodynamics will remain stable., Cardiac rhythm will remain stable., Comfort level will be maintained., Respiratory function will remain adequate., Patient/ family verbilizes understanding of procedure., Procedure tolerated without complication., Recovers from procedure without complications.. 10:01:45 Patient received from Outpatients to IR Alert and oriented. Tansferred to table in Prone position. 10:01:48 Correct patient and procedure confirmed by team. 10:01:53 Signed procedure consent form obtained from patient. 10:01:55 ECG and BP/O2 sat monitors applied to patient. 10:01:56 Vital chart was started 10:01:57 Baseline sample Acquired. 10:01:58 Full Disclosure recording started 10:02:03 - 10:02:09 H&P Date Dictated: 12/24/2016 Within 30 days and on chart.. 10:02:11 Pre-procedure instructions explained to patient. 10:02:12 Pre-op teaching completed and patient verbalized understanding. 10:02:18 Family in waiting room. 10:02:24 Patient NPO since Midnight. 10:02:36 Patient allergic to No known allergies 10:03:03 Is the patient allergic to Iodine/contrast media? No. 10:03:09 Is patient on blood thinner?Yes 10:03:13 Patient diabetic? No. 10:03:15 - 10:03:17 ----Pre-sedation anethsthesia assessment.---- 10:03:21 Previous problem with sedation/anesthesia? No ? 10:03:27 Snore? No 10:03:30 Sleep apnea? No 10:03:46 Deviated septum? No 10:03:48 Opens mouth fully? Yes 10:03:50 Sticks out tongue? Yes 10:03:53 Airway obstruction? No ? 10:03:57 Dentures? No ? 10:04:24 IV patent on arrival in left forearm with 0.9% NaCl at O. 10:04:30 Popliteal region area was prepped with chlora-prep and draped in steril e fashion 10:04:33 Alarms reviewed by Esperanza Montalvo 10:04:34 Sharps counted by scrub and verified by Thom 10:04:37 - 10:04:43 Use device set IR Diagnostic 10:04:45 Sterile Angiographic Pack opened to sterile field. 10:04:46 Bag Decanter opened to sterile field. 10:05:04 Micropuncture VSI 4FR kit opened to sterile field. 10:05:04 Cook DOC .035 guide wire opened to sterile field. 10:14:39 Physician arrived 10:15:16 Versed 1 mg I.V. was administered by Renate Moctezuma RN; for sedation; 10:15:46 Fentanyl 50 mcg I.V. was administered by Renate Moctezuma RN; for sedation; 10:17:05 --------ALL STOP TIME OUT------ 10:17:06 Final Timeout: patient, procedure, and site verified with staff and physician. All members of the team are in agreement. 10:18:19 Procedure started. 10:18:37 Local anesthetic to left popliteal vein with Lidocaine 1% by Josh Greene MD.INITIAL ACCESS ONLY 10:28:03 Physical assessment completed. ASA score P 3 - A patient with severe systemic disease as per Josh Greene MD. 10:28:10 Sedation plan: IV Moderate Sedation Versed, Fentanyl 10:29:07 Venous access obtained using ultrasound guidance. 10:35:12 Versed 1 mg I.V. was administered by Renate Moctezuma RN; for sedation; 10:35:55 Fentanyl 50 mcg I.V. was administered by Renate Moctezuma RN; for sedation; 10:45:03 Fentanyl 50 mcg I.V. was administered by Renate Moctezuma RN; for sedation; 10:45:28 Terumo 5FR ANGLED 100CM glide catheter opened to sterile field. 10:45:29 Terumo ANGLE 260cm glide wire opened to sterile field. 10:45:36 Versed 1 mg I.V. was administered by Renate Moctezuma RN; for sedation; 10:45:39 Terumo TORQUE DEVICE PLASTIC .038 opened to sterile field. 10:50:55 Cook SAUER 260 guide wire opened to sterile field. 10:55:11 Versed 1 mg I.V. was administered by Renate Moctezuma RN; for sedation; 11:05:16 Heparin Bolus 5000 units I.V. was administered by Renate Moctezuma RN; for anticoagulation; 11:05:44 Cook SAUER 260 guide wire opened to sterile field. 11:11:10 Fentanyl 50 mcg I.V. was administered by Anjelica Christopher RN; for sedation; 11:15:27 Angiojet PROXI 6Fr 90CM thrombectomy catheter opened to sterile field. 11:27:34 Versed 1 mg I.V. was administered by Anjelica Christopher RN; for sedation; 11:27:41 Fentanyl 50 mcg I.V. was administered by Anjelica Christopher RN; for sedation; 11:30:08 TPA 10 mg AngioJet was administered by Josh Greene MD; used for procedure; 11:55:12 Versed 1 mg I.V. was administered by Renate Moctezuma RN; for sedation; 11:55:23 Fentanyl 50 mcg I.V. was administered by Renate Moctezuma RN; for sedation; 12:07:29 Ancef (1Gm/50ml NS) 1 g I.V.P.B was administered by Renate Moctezuma RN ; Per physician; 12:17:52 Demerol 25 mg I.V. was administered by Renate Moctezuma RN; for shivering; 12:20:48 Heparin Bolus 5000 units I.V. was administered by Renate Moctezuma RN; for anticoagulation; 12:21:37 Inflation number: 1 A BARD ULTRAVERSE 6.0 X 80 X 135 balloon was preppe d and advanced across the Undefined1, then inflated to 15 POLA for 0:11 (min:sec). 12:25:29 Benadryl 50 mg I.V. was administered by Renate Moctezuma RN; for sedation; 12:29:24 Inflation number: 1 A Cordis Powerflex Pro 10.0 x 40 x 80cm balloon was prepped and advanced across the Undefined2, then inflated to 11 POLA for 0:05 (min:sec). 12:39:08 Versed 1 mg I.V. was administered by Anjelica Christopher RN; for sedation; 12:48:51 STOPCOCK, 1-WAY MALE ROTATE LL C opened to sterile field. 12:48:52 STOPCOCK, 1-WAY MALE ROTATE LL C opened to sterile field. 12:49:09 CRAGG-MO 50cm infusion catheter opened to sterile field. 12:49:09 CRAGG-MO 50cm infusion catheter opened to sterile field. 13:07:44 Versed 1 mg I.V. was administered by Anjelica Christopher RN; for sedation; 13:19:55 Procedure ended.(Physican Out) 13:20:29 Fluoroscopy time 19.80 minutes. 13:20:39 Fluoroscopy dose: 885 mGy 13:20:39 Flurop Dose total: 885 13:20:52 Contrast amount:Isovue 300 185ml. 13:20:54 Sharps counted by scrub and verified by R.N. 13:23:25 Demerol 25 mg I.V. was administered by Anjelica Christopher RN; for sedation; 13:28:42 Procedure and supply charges have been captured, reviewed, submitted an d are correct. 13:32:10 Heparin Drip (37931qqrgu/250 D5W) 500 units/hr via RLE sheath was administered by Anjelica Christopher RN; for anticoagulation; 13:32:59 Heparin Flush Bag (1000units/500ml NS) 30 ml/hr via LLE sheath was administered by Anjelica Christopher RN; for anticoagulation; 13:39:43 Activase(12.5mg/250 NS) 0.5 mg/hr via BLE catheters was administered by Anjelica Christopher RN; for anticoagulation; 13:42:28 Vital chart was stopped Intervention Summary Intervention Notes Time ActionType Lesion and Equipment Action# Pressure Duration Attributes Used 12:21:37 Inflate Undefined1 Cordis 1 15 00:11 balloon Powerflex Pro 6.0 X 80 X 135 balloon 12:29:24 Inflate Undefined2 Cordis 1 11 00:05 balloon Powerflex Pro 10.0 x 40 x 80cm balloon Device Usage Item Name Manufacture Quantity Catalog Hospital Part Current Minim al Lot# / Number Charge Number Stock Stock Serial# Code Sterile Cardinal 1 [id number] [id number] 5 Angiographic Health Pack Bag Decanter Microtek 1 [id number] 45702 657209 5 Medical [employer]. Micropuncture VSI VASCULAR 1 [id number] 280897 028905 5 VSI 4FR kit SOLUTIONS Cook DOC .035 Cook Medical 1 [id number] 552508 608541 5 [id number] guide wire Terumo 5FR Terumo 1 CG508 705213 72862 150223 4 ANGLED 100CM glide catheter Terumo ANGLE Terumo 1 [id number] 810183 222847 447804 5 260cm glide wire Terumo TORQUE [place] 1 TD01 084674 225659 934571 5 DEVICE PLASTIC Scientific .038 Cook SAUER 260 Cook Medical 2 [id number] 514336 909835 5 [id number] guide wire [id number] Angiojet PROXI [place] 1 717029-346 599217 981828 731753 5 6Fr 90CM Scientific thrombectomy catheter Cordis Cardinal 1 [id number] 311542 808508 376385 5 Powerflex Pro Health 6.0 X 80 X 135 balloon Cordis Cardinal 1 [id number] 778660 290277 693552 5 Powerflex Pro Health 10.0 x 40 x 80cm balloon STOPCOCK, Cook Medical 2 [id number] 105787 08167 288834 5 [id number] 1-WAY MALE [id number] [place] [address] 2 26889-50 082800 446615 5 50cm infusion catheter Signature Audit [place] Stage Time Signature Unsigned Intra-Procedure 12/24/2016 Alka Donohue 1:42:25 PM RT(R) Signatures Monitor : Alka Donohue RT Signature : Date : Time : [place] [address] [place] [address]
--- NOTE | ~2016-12-24 | HEMODYNAMI ---
PATIENT:SKYLAR HAMPTON MEDICAL RECORD: [id number] : 69 LOCATION[id number] [id number] ADMISSION DATE: 12/25/16 Generatedon:12/25/201618:25 Patient name: SKYLAR HAMPTON Patient #: [id number] SSN: : 1965 Date of study: 12/25/2016 Page: Of Hemodynamic Procedure Report Patient Data Patient Demographics Procedure consent was obtained First Name: SKYLAR Gender: Female Last Name: MEMO : 1965 Middle Initial: NIRALI Harris Age: 51 year(s) Patient #: [id number] Race: Unknown Additional ID: [id number] Contact details Address: [address] [place] [address] State: [place] City: [place] Zip code: [address] Past Medical History Allergies: No known allergies Admission Admission Data Admission Date: 12/25/2016 Admission Time: 15:43 Room #: [id number].2306 Weight (lbs.): 175 Weight (kg.): 79.38 Procedure Procedure Types Cath Procedure Peripheral Cath Diagnostic Procedure Cath Peripheral Venography Extremity Bilat Venogram Lower Ext Procedure Description Procedure Date Procedure Date: 12/25/2016 Procedure Start Time: 16:10 Procedure Staff Name Function Josh Greene MD Performing Physician Raúl Tovar RT Scrub Renate Moctezuma RN Nurse Anjelica Christopher RN Nurse Alka Donohue RT Assurance Senior Alka Donohue RT Monitor Procedure Data Cath Procedure Fluoroscopy Diagnostic fluoroscopy Total fluoroscopy Time: time: 25.5 min 25.5 min Diagnostic fluoroscopy Total fluoroscopy dose: dose: 1282 mGy 1282 mGy Contrast Material Contrast Material Type Amount (ml) Isovue 300 195 Diagnostic catheters Device Type Used For End Catheter Placement Merit ULTRA BOLUS FLUSH 5Fr 90CM catheter Merit ULTRA BOLUS FLUSH 5Fr 65CM catheter Procedure Medications Medication Administration Route Dosage Oxygen NC 3 l/min Lidocaine 1% added to field 20 Heparin Flush Bag added to field 2 bags (1000units/500ml NS) Fentanyl I.V. 50 mcg Fentanyl I.V. 50 mcg Versed I.V. 2 mg Versed I.V. 1 mg Fentanyl I.V. 50 mcg Heparin Bolus I.V. 5000 units Versed I.V. 1 mg Fentanyl I.V. 50 mcg Versed I.V. 1 mg Fentanyl I.V. 50 mcg Versed I.V. 1 mg Fentanyl I.V. 50 mcg Heparin Bolus I.V. 5000 units Versed I.V. 1 mg Versed I.V. 1 mg Fentanyl I.V. 50 mcg Fentanyl I.V. 50 mcg Hemodynamics Rest Heart Rate: 100 (bpm) Snapshots Pre Cath Intra NCS Post Cath Vital Signs Time Heart Resp SPO2 NIBP (mmHg) Rhythm Pain Sedation Rate (ipm) (%) Status Level (bpm) 15:33:49 14 100 134/87(112) NSR 3 (11) , 10(A) Tolerable 15:38:01 14 100 132/84(104) NSR 3 (11) , 10(A) Tolerable 15:42:13 98 16 98 138/83(114) NSR 3 (11) , 10(A) Tolerable 15:46:21 103 16 100 117/78(91) NSR 3 (11) , 10(A) Tolerable 15:50:31 101 16 99 122/68(96) NSR 3 (11) , 10(A) Tolerable 15:54:41 100 16 99 117/72(87) NSR 3 (11) , 10(A) Tolerable 15:58:49 98 16 99 109/70(88) NSR 3 (11) , 10(A) Tolerable 16:02:52 101 19 99 116/80(90) NSR 0 (11) , 10(A) No pain 16:06:58 103 19 100 122/76(96) NSR 0 (11) , 10(A) No pain 16:11:06 108 18 100 128/81(104) NSR 0 (11) , 10(A) No pain 16:15:13 106 16 99 123/74(92) NSR 0 (11) , 10(A) No pain 16:20:19 106 16 100 119/74(90) NSR 0 (11) , 9(A) No pain 16:24:29 104 17 100 118/75(94) NSR 0 (11) , 9(A) No pain 16:28:38 109 18 100 120/68(89) NSR 0 (11) , 9(A) No pain 16:32:44 94 20 98 136/87(115) NSR 0 (11) , 9(A) No pain 16:36:54 93 18 100 135/85(101) NSR 0 (11) , 9(A) No pain 16:41:02 98 19 100 132/85(106) NSR 0 (11) , 9(A) No pain 16:45:12 93 20 100 143/88(109) NSR 0 (11) , 9(A) No pain 16:49:24 95 19 100 135/87(105) NSR 0 (11) , 9(A) No pain 16:53:28 100 21 100 127/85(107) NSR 0 (11) , 9(A) No pain 16:57:38 89 16 99 134/80(112) NSR 0 (11) , 9(A) No pain 17:01:48 86 16 99 125/78(105) NSR 0 (11) , 9(A) No pain 17:05:53 92 19 99 135/87(104) NSR 0 (11) , 9(A) No pain 17:09:59 92 19 98 144/98(126) NSR 0 (11) , 9(A) No pain 17:14:11 95 19 98 130/89(98) NSR 0 (11) , 9(A) No pain 17:18:23 90 16 99 131/70(103) NSR 0 (11) , 9(A) No pain 17:22:35 90 16 100 127/77(100) NSR 0 (11) , 9(A) No pain 17:26:45 86 16 100 130/84(103) NSR 0 (11) , 9(A) No pain 17:30:55 89 16 100 136/83(106) NSR 0 (11) , 9(A) No pain 17:35:07 87 18 100 140/84(112) NSR 0 (11) , 9(A) No pain 17:39:16 86 20 100 135/80(106) NSR 0 (11) , 9(A) No pain 17:43:26 84 17 100 143/86(115) NSR 0 (11) , 9(A) No pain 17:48:25 84 19 98 Measuring NSR 0 (11) , 9(A) No pain 17:48:31 86 19 98 155/90(131) NSR 0 (11) , 9(A) No pain 17:52:45 85 20 98 146/86(116) NSR 0 (11) , 9(A) No pain 17:56:55 88 20 99 148/92(117) NSR 0 (11) , 9(A) No pain 18:01:11 105 23 100 163/95(112) NSR 7 (11) , 10(A) Very intense 18:05:25 100 13 98 154/95(125) NSR 0 (11) , 9(A) No pain 18:09:37 97 27 99 136/94(99) NSR 0 (11) , 9(A) No pain 18:13:43 92 17 99 138/87(108) NSR 0 (11) , 9(A) No pain 18:17:55 94 18 99 144/88(118) NSR 0 (11) , 10(A) No pain 18:23:10 95 18 97 158/92(111) NSR 0 (11) , 10(A) No pain Medications Time Medication Route Dose Verified Delivered Reason Notes Effectiveness by by 15:43:16 Fentanyl I.V. 50 Anjelica Anjelica discomfort mcg King COLTEN Christopher RN laying prone 15:53:17 Oxygen NC 3 Anjelica Anjelica Per protocol l/min King COLTEN Christopher RN 15:53:29 Lidocaine 1% added 20ml Anjelica Anjelica for local to vial King COLTEN Christopher RN anesthetic field 15:53:46 Heparin Flush added 2 Anjelica Anjelica used for Bag to bags King COLTEN Christopher RN procedure (1000units/500ml field NS) 15:57:28 Fentanyl I.V. 50 Anjelica Anjelica discomfort mcg King COLTEN Christopher RN laying prone 16:10:15 Versed I.V. 2 mg Anjelica Anjelica for sedation King COLTEN Christopher RN 16:14:04 Heparin Bolus I.V. 5000 Renate Anjelica for units Jose Elias King COLTEN aleman RN 16:17:13 Versed I.V. 1 mg Anjelica Anjelica for sedation King COLTEN Christopher RN 16:17:22 Fentanyl I.V. 50 Anjelica Anjelica for sedation mcg King COLTEN Christopher RN 16:28:58 Versed I.V. 1 mg Anjelica Anjelica for sedation King COLTEN Christopher RN 16:29:04 Fentanyl I.V. 50 Anjelica Anjelica for sedation mcg King COLTEN Christopher RN 16:55:06 Versed I.V. 1 mg Anjelica Anjelica for sedation King COLTEN Christopher RN 16:55:11 Fentanyl I.V. 50 Anjelica Anjelica for sedation mcg King COLTEN Christopher RN 17:15:49 Versed I.V. 1 mg Anjelica Anjelica for sedation King COLTEN Christopher RN 17:15:54 Fentanyl I.V. 50 Anjelica Anjelica for sedation ines Christopher RN 17:16:04 Heparin Bolus I.V. 5000 Renate Anjelica for units Jose Elias Christopher RN anticoagulation RN 17:37:50 Versed I.V. 1 mg Renate Anjelica for sedation Jose Elias Christopher RN RN 18:04:11 Versed I.V. 1 mg Renate Anjelica for sedation Jose Elias Christopher RN RN 18:04:16 Fentanyl I.V. 50 Renate Anjelica for LEFT LEG mcg Jose Elias Christopher RN PAIN RN 18:06:38 Fentanyl I.V. 50 Renate Anjelica for LEFT LEG mcg Jose Elias Christopher RN PAIN hr manager Log Time Note 13:52:50 Patient Weight : 175 kg 15:17:34 Use device set IR Diagnostic 15:17:37 Sterile Angiographic Pack opened to sterile field. 15:17:39 Bag Decanter opened to sterile field. 15:18:40 Time tracking: Regular hours 15:18:50 Plan of Care:Hemodynamics will remain stable., Cardiac rhythm will remain stable., Comfort level will be maintained., Respiratory function will remain adequate., Patient/ family verbilizes understanding of procedure., Procedure tolerated without complication., Recovers from procedure without complications.. 15:19:02 Patient received from ICU to IR Alert and oriented. Tansferred to table in Prone position. 15:22:54 Signed procedure consent form obtained from patient. 15:23:12 - 15:23:21 H&P Date Dictated: 12/25/2016 Within 30 days and on chart.. ::23 Pre-procedure instructions explained to patient. 15::24 Pre-op teaching completed and patient verbalized understanding. 15:23:26 Family in waiting room. 15:23:28 Patient NPO since Midnight. 15:23:40 Patient diabetic? No. 15:24:20 - 15:24:20 ----Pre-sedation anethsthesia assessment.---- 15:24:27 Previous problem with sedation/anesthesia? No ? 15:24:31 Snore? No 15:24:33 Sleep apnea? No 15:24:36 Deviated septum? No 15:24:39 Opens mouth fully? Yes 15:24:41 Sticks out tongue? Yes 15:24:44 Airway obstruction? No ? 15:24:49 Dentures? No ? 15:25:45 IV patent on arrival in right antecubital with 0.9% NaCl at [facility]. 15:32:54 Vital chart was started 15:43:16 Fentanyl 50 mcg I.V. was administered by Anjelica Christopher RN; discomfort laying prone; 15:53:17 Oxygen 3 l/min NC was administered by Anjelica Christopher RN; Per protocol; 15:53:29 Lidocaine 1% 20ml vial added to field was administered by Anjelica Christopher RN; for local anesthetic; 15:53:46 Heparin Flush Bag (1000units/500ml NS) 2 bags added to field was administered by Anjelica Christopher RN; used for procedure; 15:57:28 Fentanyl 50 mcg I.V. was administered by Anjelica Christopher RN; discomfort laying prone; 16:02:11 Baseline sample Acquired. 16:02:12 Full Disclosure recording started 16:02:14 - : Alarms reviewed by Esperanza Montalvo : Sharps counted by scrub and verified by Thom 16::10 - 16::12 Physician arrived 16::34 --------ALL STOP TIME OUT------ :35 Final Timeout: patient, procedure, and site verified with staff and physician. All members of the team are in agreement. 16::49 Physical assessment completed. ASA score P 3 - A patient with severe systemic disease as per Josh Greene MD. 16::55 Sedation plan: IV Moderate Sedation Versed, Fentanyl 16:10:03 Procedure started. 16:10:15 Versed 2 mg I.V. was administered by Anjelica Christopher RN; for sedation; 16:12:35 Cook SAUER 260 guide wire opened to sterile field. 16:14:04 Heparin Bolus 5000 units I.V. was administered by Anjelica Christopher RN; for anticoagulation; 16:17:13 Versed 1 mg I.V. was administered by Anjelica Christopher RN; for sedation; 16:17:22 Fentanyl 50 mcg I.V. was administered by Anjelica Christopher RN; for sedation; 16:22:12 A Merit ULTRA BOLUS FLUSH 5Fr 90CM catheter was advanced over the wire and used for . 16:22:16 A Merit ULTRA BOLUS FLUSH 5Fr 65CM catheter was advanced over the wire and used for . 16:22:37 Zelante 8Fr Angiojet catheter opened to sterile field. 16:23:07 ST Hema 8Fr Sheath opened to sterile field. 16:27:27 Cook SAUER 260 guide wire opened to sterile field. 16:28:58 Versed 1 mg I.V. was administered by Anjelica Christopher RN; for sedation; 16:29:04 Fentanyl 50 mcg I.V. was administered by Anjelica Christopher RN; for sedation; 16:37:40 BasixTOUCH Inflation Syringe opened to sterile field. 16:38:39 Inflation number: 1 A Cordis Powerflex Pro 10.0 x 40 x 135cm balloon wa s prepped and advanced across the Undefined1, then inflated to 12 POLA for 0:10 (min:sec). 16:46:11 Inflation number: 2 A Cordis Powerflex Pro 12.0 X 40 X 80cm balloon was prepped and advanced across the Undefined1, then inflated to 10 POLA for 0:10 (min:sec). 16:48:51 Inflation number: 1 A Cordis Powerflex Pro 6.0 X 80 X 135 balloon was prepped and advanced across the Undefined2, then inflated to 15 POLA for 0:12 (min:sec). 16:49:31 Inflation number: 1 A Cordis Powerflex Pro 8.0 X 80 X 135 balloon was prepped and advanced across the Undefined3, then inflated to 10 POLA for 0:10 (min:sec). 16:55:06 Versed 1 mg I.V. was administered by Anjelica Christopher RN; for sedation; 16:55:11 Fentanyl 50 mcg I.V. was administered by Anjelica Christopher RN; for sedation; 16:57:18 Terumo 5FR ANGLED 100CM glide catheter opened to sterile field. 17:06:28 ST Hema 8Fr Sheath opened to sterile field. 17:15:49 Versed 1 mg I.V. was administered by Anjelica Christopher RN; for sedation; 17:15:54 Fentanyl 50 mcg I.V. was administered by Anjelica Christopher RN; for sedation; 17:16:04 Heparin Bolus 5000 units I.V. was administered by Anjelica Christopher RN; for anticoagulation; 17:36:42 Terumo TORQUE DEVICE PLASTIC .038 opened to sterile field. 17:37:50 Versed 1 mg I.V. was administered by Anjelica Christopher RN; for sedation; 17:40:04 [facility] 260 .035 glide wire opened to sterile field. 17:50:40 Inflation number: 1 A Bard ATLAS 14 x 4 x 75CM balloon was prepped and advanced across the Undefined4, then inflated to 18 POLA for 0:11 (min:sec). 17:57:45 SUTURE vicryl 2-0 opened to sterile field. 18:02:16 Cook SAUER 260 guide wire opened to sterile field. 18:04:11 Versed 1 mg I.V. was administered by Anjelica Christopher RN; for sedation; 18:04:16 Fentanyl 50 mcg I.V. was administered by Anjelica Christopher RN; for LEFT LEG PAIN; 18:06:38 Fentanyl 50 mcg I.V. was administered by Anjelica Christopher RN; for LEFT LEG PAIN; 18:08:36 Procedure ended.(Physican Out) 18:09:22 Fluoroscopy time 25.50 minutes. 18::26 Fluoroscopy dose: 1282 mGy 18::26 Flurop Dose total: 1282 18:09:32 Contrast amount:Isovue 300 195ml. 18:25:25 Procedure and supply charges have been captured, reviewed, submitted an d are correct. 18:25:42 Vital chart was stopped Intervention Summary Intervention Notes Time ActionType Lesion and Equipment Action# Pressure Duration Attributes Used 16:38:39 Inflate Undefined1 Cordis 1 12 00:10 balloon Powerflex Pro 10.0 x 40 x 135cm balloon 16:46:11 Inflate Undefined1 Cordis 2 10 00:10 balloon Powerflex Pro 12.0 X 40 X 80cm balloon 16:48:51 Inflate Undefined2 Cordis 1 15 00:12 balloon Powerflex Pro 6.0 X 80 X 135 balloon 16:49:31 Inflate Undefined3 Cordis 1 10 00:10 balloon Powerflex Pro 8.0 X 80 X 135 balloon 17:50:40 Inflate Undefined4 Bard 1 18 00:11 balloon ATLAS 14 x 4 x 75CM balloon Device Usage Item Name Manufacture Quantity Catalog Number [facility] Part Current [facility] Lot# / Charge Number Stock Stock Serial# Code Sterile Cardinal 1 [id number] 5 Angiographic Health Pack Bag Decanter Microtek 1 [id number] 98925 [id number] 5 [employer] Cook [facility] Medical 3 [id number] 5 [id number] 260 guide [id number] wire [id number] Merit ULTRA Merit 1 [id number] [id number] 916889 5 BOLUS FLUSH Medical 5Fr 90CM catheter Merit ULTRA Merit 1 [id number] 784542 453702 5 BOLUS FLUSH Medical 5Fr 65CM catheter Zelante 8Fr [place] 1 [id number] 650796 866489 010595 [address] Hema [address] St Hema 2 [id number] 578606 710856 634833 5 Sheath BasixTOUCH Merit 1 [id number] 233557 235723 156856 5 Inflation Medical Syringe Cordis Cardinal 1 [id number] 765366 894797 941206 5 Powerflex Health Pro 10.0 x 40 x 135cm balloon Cordis Cardinal 1 [id number] 842034 153710 625952 5 Powerflex Health Pro 12.0 X 40 X 80cm balloon Cordis Cardinal 1 [id number] 457207 411226 675725 5 Powerflex Health Pro 6.0 X 80 X 135 balloon Cordis Cardinal 1 [id number] 173691 199913 5 Powerflex Health Pro 8.0 X 80 X 135 balloon Terumo 5FR Terumo 1 [id number] 999125 38974 599562 4 ANGLED 100CM glide catheter Terumo [place] 1 [id number] 205525 703253 726683 5 TORQUE Scientific DEVICE PLASTIC .038 Cook [employer] Medical 1 [id number] 173992 540392 5 [id number] [facility] 260 .035 glide wire Bard ATLAS Bard 1 [id number] 448687 524738 5 14 x 4 x 75CM balloon SUTURE Ethicon 1 664 458378 469053 5 ETHILON 2-0 BLK MONO FS Signature Audit [place] Stage Time Signature Unsigned Intra-Procedure 12/25/2016 Alka Donohue 6:25:38 PM RT(R) Signatures Monitor : Alka Donohue RT Signature : Date : Time : [facility] [address] [place] [address]
[~2016-12-24 07:53] MED LIST changes: +IBUPROFEN800 MG PO; +LOVENOX80 MG/0.8 SC
[2016-12-24 09:21] LABS: BASOPHILS 0.2 % (0-2); EOSINOPHILS 2.4 % (0-7); HEMATOCRIT 31.3 % (36.0-48.0); HEMOGLOBIN 9.5 g/dL (12-16); LYMPHOCYTES 18.3 % (15-50); MCH 25.3 pg (26.0-34.0); MCHC 30.4 g/dL (31.0-37.0); MCV 83.2 fL (80.0-100.0); MEAN PLATELET VOLUME 10.1 fL (7.4-10.4); MONOCYTES 8.3 % (2-11); NEUTROPHILS 69.8 % (40-80); PLATELET COUNT 366 10x3/uL (130-400); RBC 3.76 10x6/uL (4.00-5.40); RDW 21.9 % (11.5-14.5)
[2016-12-24 09:29] LABS: CALC OSMOLALITY 276 mosm/kg (275-300); CALCIUM 8.5 mg/dL (8.5-10.1); CARBON DIOXIDE 29.5 mmol/L (21.0-32.0); CHLORIDE - SERUM 102 mmol/L (98-107); CREATININE - SERUM 0.8 mg/dL (0.6-1.3); GLUCOSE 96 mg/dL (74-106); POTASSIUM - SERUM 4.2 mmol/L (3.5-5.1); SODIUM 139 mmol/L (136-145); UREA NITROGEN 9 mg/dL (7-18); eGFR NON AFRICAN AMERICAN 81 mL/min (90-120)
[2016-12-24 09:37] LABS: APTT 27.4 SECONDS (22.8-39.4); INR 0.98 (0.85-1.17); PROTIME 12.9 SECONDS (11.6-15.0)
--- NOTE | 2016-12-24 15:00 | NUR ---
PT ARRIVED IN ICU FROM IR. PT IS ALERT AND ORIENTED X4. S1S2 NOTED SR PER CM, LUNG SOUNDS CLR BILAT. PT HAS BILAT SHEATHS TO POPITEALS INFUSING. PT ATTACHED TO MONITORS, VSS. LASTING ROOM SUPERVISOR PUMP SET UP AT THIS TIME. FAMILY AT BEDSIDE AT THIS TIME. WILL MONITOR.
[2016-12-24 15:08] LABS: BASOPHILS 0.1 % (0-2); EOSINOPHILS 0.5 % (0-7); HEMATOCRIT 30.9 % (36.0-48.0); HEMOGLOBIN 9.6 g/dL (12-16); LYMPHOCYTES 4.1 % (15-50); MCH 25.9 pg (26.0-34.0); MCHC 31.1 g/dL (31.0-37.0); MCV 83.3 fL (80.0-100.0); MEAN PLATELET VOLUME 9.8 fL (7.4-10.4); NEUTROPHILS 89.3 % (40-80); RBC 3.71 10x6/uL (4.00-5.40); RDW 21.7 % (11.5-14.5)
[2016-12-24 15:10] LABS: PLATELET COUNT 274 10x3/uL (130-400)
[2016-12-24 15:16] LABS: INR 1.06 (0.85-1.17); PROTIME 13.7 SECONDS (11.6-15.0)
[2016-12-24 15:58] LABS: APTT 43.9 SECONDS (22.8-39.4)
--- NOTE | 2016-12-24 17:00 | NUR ---
PT RESTING COMFORTABLY AT THIS TIME. VSS. WILL MONITOR.
--- NOTE | 2016-12-24 18:41 | NUR ---
PT C/O OF NAUSEA. EMESIS BAG PROVIED AND PRN MEDICATION GIVEN PER EMAR.
[2016-12-24 18:49] LABS: BASOPHILS 0.1 % (0-2); EOSINOPHILS 0.4 % (0-7); HEMATOCRIT 30.3 % (36.0-48.0); HEMOGLOBIN 9.4 g/dL (12-16); IMMATURE GRANULOCYTES 0.8 % (0-5); LYMPHOCYTES 5.9 % (15-50); MCH 25.9 pg (26.0-34.0); MCV 83.5 fL (80.0-100.0); MEAN PLATELET VOLUME 9.4 fL (7.4-10.4); NEUTROPHILS 86.8 % (40-80); PLATELET COUNT 225 10x3/uL (130-400); RBC 3.63 10x6/uL (4.00-5.40); RDW 21.6 % (11.5-14.5); WBC 11.5 10x3/uL (4.8-10.8)
[2016-12-24 19:17] LABS: APTT 61.3 SECONDS (22.8-39.4); INR 1.39 (0.85-1.17)
--- NOTE | 2016-12-24 19:17 | NUR ---
REPORT RECIEVED. ASSESSMENT COMPLETE PER FLOW SHEET.VSS. PT AWAKE ALERT ORINTED X3. BP 117/76 HR 86 NSR. DENIES PAIN. BILAT PEDAL PULSES STRONG +2 PALP. GENERALIZED EDEMA NOTED BILAT LOWER EXTREMETIES. BILAT KNEE SHEETH'S PATENT DRSG CDI. REFER TO FLOW SHEET FOR INFUSIONS. JEANNEEIS NEEDS. WILL CONTINUE TO MONITOR.
--- NOTE | 2016-12-24 23:06 | NUR ---
REASSESSMENT COMPLETE PER FLOW SHEET. VSS. NO NEW CHANGES. AT THIS TIME. PT SLEEPING COMFORTABLY. BILAT PEDAL PULSES PALP +2. WILL CONTINUE TO MONITOR.
[2016-12-25] VITALS (15 sets, daily range): BP systolic 108–148; BP diastolic 60–87
--- NOTE | 2016-12-25 03:12 | NUR ---
REASSESSMENT COMPLETEPER FLOW SHEEET. VSS NO NEW CHANGES. PT SLEEPING COMFORTABLY. WILL CONTINUE TO MONITOR.
[2016-12-25 05:13] LABS: BASOPHILS 0.4 % (0-2); EOSINOPHILS 1.6 % (0-7); HEMATOCRIT 31.2 % (36.0-48.0); HEMOGLOBIN 9.4 g/dL (12-16); LYMPHOCYTES 13.2 % (15-50); MCH 25.3 pg (26.0-34.0); MCHC 30.1 g/dL (31.0-37.0); MCV 84.1 fL (80.0-100.0); MEAN PLATELET VOLUME 10.4 fL (7.4-10.4); MONOCYTES 9.6 % (2-11); NEUTROPHILS 74.2 % (40-80); RBC 3.71 10x6/uL (4.00-5.40); RDW 21.9 % (11.5-14.5)
[2016-12-25 05:25] LABS: PLATELET COUNT 178 10x3/uL (130-400)
[2016-12-25 05:28] LABS: ANION GAP 8.8 mmol/L (8-16); APTT 63.4 SECONDS (22.8-39.4); CALCIUM 8.1 mg/dL (8.5-10.1); CREATININE - SERUM 0.9 mg/dL (0.6-1.3); INR 1.51 (0.85-1.17); POTASSIUM - SERUM 3.8 mmol/L (3.5-5.1); PROTIME 18.2 SECONDS (11.6-15.0)
--- NOTE | 2016-12-25 07:00 | NUR ---
REC'D REPORT AND BRESUMED ARE, AAO, VSS, O2 VIA CN AT 2L, LEFT AC WITH NS AT 25 CC/HR AND DILAUDID ROLL DOUGH DIVIDER SET FOR 0.2MG Q 10 MIN WITH 0.4 MG BOLUS AND 4 MG IN 4 HOUR LO, B/L LATERAL LEG WITH IR SHEATH IN PLACE HEPARIN AND CATHFLO INFUSING RT 600 U/HR, LT 60 U/HR, +4 SWELLING NOTED TO BOTH LEGS, PEDAL PULSES FELT, C/O NUMBNESS IN LEFT GREAT TOE, EXTREMITIES PINK. CALL LIGHT IN REACH
[2016-12-25 07:50] LABS: BASOPHILS 0.2 % (0-2); EOSINOPHILS 2.8 % (0-7); HEMATOCRIT 31.3 % (36.0-48.0); HEMOGLOBIN 9.5 g/dL (12-16); IMMATURE GRANULOCYTES 0.9 % (0-5); LYMPHOCYTES 13.4 % (15-50); MCH 25.5 pg (26.0-34.0); MCHC 30.4 g/dL (31.0-37.0); MCV 83.9 fL (80.0-100.0); MEAN PLATELET VOLUME 9.6 fL (7.4-10.4); MONOCYTES 7.8 % (2-11); NEUTROPHILS 74.9 % (40-80); PLATELET COUNT 167 10x3/uL (130-400); RBC 3.73 10x6/uL (4.00-5.40); RDW 21.3 % (11.5-14.5); WBC 4.6 10x3/uL (4.8-10.8)
[2016-12-25 08:10] LABS: APTT 53.6 SECONDS (22.8-39.4); INR 1.48 (0.85-1.17); PROTIME 17.9 SECONDS (11.6-15.0)
--- NOTE | 2016-12-25 09:00 | NUR ---
FAMILY AT BEDSIDE, STATUS UPDATED, VOICES NO NEEDS AT THIS TIME
--- NOTE | 2016-12-25 10:30 | NUR ---
CHEST X RAY COMPLETED POST PICC LINE PLACEMENT
--- NOTE | 2016-12-25 11:50 | NUR ---
PC FROM [facility] FROM IR, PER DR. PARK PLEASE TURN OF CATHFLO/TPA, STOPPED AT THIS TIME, PICC LINE SITE OOOZING, SAND BAG PLACE
--- NOTE | 2016-12-25 13:00 | NUR ---
REPORT RECD, TRANSFER OF CARE. PT RESTING IN BED AT THIS TIME. VSS WILL MONITOR
[2016-12-25 13:33] LABS: BASOPHILS 0 % (0-2); EOSINOPHILS 2.1 % (0-7); HEMATOCRIT 30.4 % (36.0-48.0); HEMOGLOBIN 9.1 g/dL (12-16); IMMATURE GRANULOCYTES 0.7 % (0-5); LYMPHOCYTES 9.1 % (15-50); MCHC 29.9 g/dL (31.0-37.0); MCV 83.5 fL (80.0-100.0); MEAN PLATELET VOLUME 9.7 fL (7.4-10.4); NEUTROPHILS 81.1 % (40-80); PLATELET COUNT 162 10x3/uL (130-400); RBC 3.64 10x6/uL (4.00-5.40); RDW 21.3 % (11.5-14.5); WBC 5.7 10x3/uL (4.8-10.8)
[2016-12-25 14:16] LABS: INR 1.49 (0.85-1.17); PROTIME 17.9 SECONDS (11.6-15.0)
--- NOTE | 2016-12-25 15:28 | NUR ---
PT TO IR AT THIS TIME.
[2016-12-25 19:15] LABS: HEMATOCRIT 26.6 % (36.0-48.0); HEMOGLOBIN 8.4 g/dL (12-16); MCH 26.4 pg (26.0-34.0); MCHC 31.6 g/dL (31.0-37.0); MCV 83.6 fL (80.0-100.0); MEAN PLATELET VOLUME 9.4 fL (7.4-10.4); RBC 3.18 10x6/uL (4.00-5.40); RDW 21.4 % (11.5-14.5)
[2016-12-25 19:24] LABS: INR 1.43 (0.85-1.17); PROTIME 17.4 SECONDS (11.6-15.0)
--- NOTE | 2016-12-25 19:40 | NUR ---
PTT READ BACK, WILL ADJUST ACCORDING TO HEP. FLOW SHEET.
[2016-12-25 19:42] LABS: APTT 194.5 SECONDS (22.8-39.4)
--- NOTE | 2016-12-25 20:06 | NUR ---
REPORT REICEVED. ASSESSMENT COMPLETE PER FLOW SHEET. VSS. DENIES PAIN OR NEEDS. BILAT POSTERIOR KNEE SHEETH INCISION SITE CDI. NO BLEEDING HEMATOMA OR BRUISING NOTED AT SITE. L PEDAL PULSES PALP +2. R PEDAL PULSE FOUND VIA DOPPLER, WEAK. R FOOT DUSKY IN COLOR CAP REFILL <3SEC. WILL MONITOR CLOSELY. R UPPER ARM PICC PATENT MINIMAL BLEEDING NOTED AT SITE. WILL CONTINUE TO MONITOR. GIVEN JELLO PER REQUEST. DENIES FURTHER NEEDS. VSS. WILL CONTINUE TO MONITOR.
--- NOTE | 2016-12-25 23:56 | NUR ---
REASSESSMENT COMPLETE PER FLOW SHEET. BILAT PEDAL PULSES PALP +2. WARM TO TOUCH. VSS NO FURTHER NEW CHANGES. WILL CONTINUE TO MONITOR.
[2016-12-26] VITALS (19 sets, daily range): BP systolic 102–139; BP diastolic 48–80
[2016-12-26 02:23] LABS: BASOPHILS 0 % (0-2); EOSINOPHILS 0.8 % (0-7); HEMATOCRIT 27.2 % (36.0-48.0); HEMOGLOBIN 8.3 g/dL (12-16); IMMATURE GRANULOCYTES 0.5 % (0-5); LYMPHOCYTES 7.1 % (15-50); MCH 25.2 pg (26.0-34.0); MCHC 30.5 g/dL (31.0-37.0); MCV 82.7 fL (80.0-100.0); MEAN PLATELET VOLUME 9.4 fL (7.4-10.4); MONOCYTES 6.7 % (2-11); NEUTROPHILS 84.9 % (40-80); PLATELET COUNT 137 10x3/uL (130-400); RBC 3.29 10x6/uL (4.00-5.40); WBC 6.3 10x3/uL (4.8-10.8)
[2016-12-26 02:34] LABS: CALC OSMOLALITY 266 mosm/kg (275-300); CALCIUM 7.8 mg/dL (8.5-10.1); CARBON DIOXIDE 26.3 mmol/L (21.0-32.0); CHLORIDE - SERUM 101 mmol/L (98-107); CREATININE - SERUM 0.7 mg/dL (0.6-1.3); GLUCOSE 100 mg/dL (74-106); POTASSIUM - SERUM 3.8 mmol/L (3.5-5.1); SODIUM 134 mmol/L (136-145); UREA NITROGEN 10 mg/dL (7-18); eGFR NON AFRICAN AMERICAN > 90 mL/min (90-120)
[2016-12-26 02:35] LABS: INR 1.28 (0.85-1.17); PROTIME 15.9 SECONDS (11.6-15.0)
[2016-12-26 02:40] LABS: APTT 45.4 SECONDS (22.8-39.4)
--- NOTE | 2016-12-26 03:20 | NUR ---
REASSESSMENT COMPLETE PER FLOW SHEET. VSS. NO NEW CHANGES. WILL CONTINUE TO MONITOR.
[2016-12-26 06:29] LABS: BASOPHILS 0 % (0-2); EOSINOPHILS 1.1 % (0-7); HEMATOCRIT 25.3 % (36.0-48.0); HEMOGLOBIN 7.8 g/dL (12-16); IMMATURE GRANULOCYTES 0.9 % (0-5); LYMPHOCYTES 11.5 % (15-50); MCH 25.2 pg (26.0-34.0); MCHC 30.8 g/dL (31.0-37.0); MCV 81.6 fL (80.0-100.0); MONOCYTES 8.2 % (2-11); NEUTROPHILS 78.3 % (40-80); PLATELET COUNT 132 10x3/uL (130-400); RDW 21.4 % (11.5-14.5); WBC 4.5 10x3/uL (4.8-10.8)
[2016-12-26 06:38] LABS: INR 1.22 (0.85-1.17); PROTIME 15.3 SECONDS (11.6-15.0)
[2016-12-26 06:39] LABS: APTT 45.8 SECONDS (22.8-39.4)
--- NOTE | 2016-12-26 08:17 | NUR ---
UP IN BED AWAKE AT THIS TIME. DENIES ANY NEEDS. NO ACUTE DISTRESS NOTED. PULSES PALPABLE. PT ALERT AND ORIENTED. WILL CONTINUE PLAN OF CARE.
--- NOTE | 2016-12-26 09:47 | NUR ---
NOTED ORDER FOR 200MG VENIFER IV, CALLED PHARMACY TO GET ORDER IN, NOTED PHARMACY STATED WE DO NOT CARRY THIS MED BUT WE DO CARRY FERRLECIT. SPOKE WITH DR BARAJAS AND SHE STATED TO ADMIN ONE TIME ORDER OF FERRLECIT 125MG IV. WILL PLACE ORDER AT THIS TIME.
[2016-12-26 14:05] LABS: BASOPHILS 0.2 % (0-2); EOSINOPHILS 2.4 % (0-7); HEMATOCRIT 25.9 % (36.0-48.0); HEMOGLOBIN 8.2 g/dL (12-16); IMMATURE GRANULOCYTES 0.9 % (0-5); LYMPHOCYTES 15.4 % (15-50); MCH 25.9 pg (26.0-34.0); MCHC 31.7 g/dL (31.0-37.0); MEAN PLATELET VOLUME 9.3 fL (7.4-10.4); MONOCYTES 4.3 % (2-11); NEUTROPHILS 76.8 % (40-80); PLATELET COUNT 155 10x3/uL (130-400); RBC 3.16 10x6/uL (4.00-5.40); RDW 21.5 % (11.5-14.5); WBC 4.6 10x3/uL (4.8-10.8)
--- NOTE | 2016-12-26 14:29 | NUR ---
WALKING WITH PHYSICAL THERAPY AT THIS TIME. NO ACUTE DISTRESS NOTED. WILL CONTINUE PLAN OF CARE.
[2016-12-26 14:47] LABS: INR 1.11 (0.85-1.17); PROTIME 14.2 SECONDS (11.6-15.0)
[2016-12-26 15:17] LABS: APTT 62.8 SECONDS (22.8-39.4)
--- NOTE | 2016-12-26 16:14 | NUR ---
DISCHARGE PAPERWORK SIGNED. PT DENIES ANY QUESTIONS OR CONCERNS. PT IS AWARE OF UPCOMING APPOINTMENTS. NOTED PT STATED SHE IS AWARE THAT SHE NEEDS TO MAKE UPCOMING APPOINTMENT WITH DR GIPSON (DR GIPSONS OFFICE TO CONTACT PT) PT THEN STATED HER UPCOMING APPT WITH DR GIPSON IS ThursdayDecember AT 0830. ALSO NOTED SUTURE SITE TO RIGHT POSTERIOR CALF HAS SCANT DRAINAGE, CLEAR RED IN COLOR. IR IS AWARE. NO NEW ORDERS. ALSO NOTED PT STATED SHE UNDERSTANDS TO TAKE HER LOVENOX SOON SHE GETS HOME PER PHYSICIAN ORDER. AND DC HOME MED LIST INCLUDES LOVENOX SHE HAS BEEN TAKING IT AT HOME. NO ACUTE DISTRESS NOTED. WILL CONTACT [facility] LETTER CARRIER TO DC LEFT UPPER ARM PICC AT THIS TIME. PT STATES UNDERSTANDING. AT BEDSIDE. WILL CONTINUE PLAN OF CARE.
--- NOTE | 2016-12-26 18:08 | NUR ---
NOTED PT TO BE ON HEPARIN DRIP UNTIL JUST BEFORE DC. PICC LINE REMOVED AT THIS TIME FROM STAFF ATTORNEY, PRESSURE APPLIED FOLLOWED BY PRESSURE DRESSING. NO BLEEDING NOTED. WILL DISCHARGE PT SHORTLY ORDERED.
--- NOTE | 2016-12-26 18:11 | NUR ---
PT DISCHARGED AT THIS TIME VIA PERSONAL VEHICLE WITH FAMILY. TRANSPORTED TO PERSONAL VEHICLE VIA WHEELCHAIR ACCOMPANIED BY HOSPITAL STAFF. PT IS AWARE TO TAKE LOVENOX WHEN ARRIVES HOME PER PHYSICIANS ORDERS. ALSO PT HAD RECIEVED HEPARIN DRIP UNTIL MOMENT THAT PICC LINE WAS DC JUST BEFORE DISCHARGE. PT LEFT WITH DISCHARGE PAPERWORK AND ALL PERSONAL ITEMS. DENIES ANY FURTHER QUESTIONS OR CONCERNS. NO FURTHER ACTIONS.
== END 2016-12-26 18:13 | disposition home or self-care (01) | DRG 271 ==
LOC: D.OPS 07:53 → D.ICU 12:48 → D.SP 13:00 → D.OPS 13:00 → D.ICU 12-25 15:43 → OBSVTIME 12-25 15:44 → D.ICU 12-25 16:16
PROVIDERS: Radiology Diagnostic Radiology; ADMIT General Practice
PROC: 067N3ZZ Dilation of Left Femoral Vein, Percutaneous Approach (ICD-10-PCS; 2016-12-24)
PROC: 067M3ZZ Dilation of Right Femoral Vein, Percutaneous Approach (ICD-10-PCS; 2016-12-24)
PROC: B51D1ZZ Fluoroscopy of Bilateral Lower Extremity Veins using Low Osmolar Contrast (ICD-10-PCS; 2016-12-24)
PROC: 06C03ZZ Extirpation of Matter from Inferior Vena Cava, Percutaneous Approach (ICD-10-PCS; 2016-12-24)
PROC: 3E04317 Introduction of Other Thrombolytic into Central Vein, Percutaneous Approach (ICD-10-PCS; 2016-12-24)
PROC: 06C03ZZ Extirpation of Matter from Inferior Vena Cava, Percutaneous Approach (ICD-10-PCS; 2016-12-25)
PROC: B548ZZA Ultrasonography of Superior Vena Cava, Guidance (ICD-10-PCS; 2016-12-25)
PROC: 02HV33Z Insertion of Infusion Device into Superior Vena Cava, Percutaneous Approach (ICD-10-PCS; principal; 2016-12-25 15:30)
DX: I82.220 Acute embolism and thrombosis of inferior vena cava (principal); I82.432 Acute embolism and thrombosis of left popliteal vein; I82.441 Acute embolism and thrombosis of right tibial vein; Z86.711 Personal history of pulmonary embolism; Z79.01 Long term (current) use of anticoagulants; Z87.891 Personal history of nicotine dependence

== ENCOUNTER → 2017-10-20 14:03 | Outpatient (CLI) | payer BC ==
[2016-12-24 15:04] VITALS: BMI 30.1
[~2017-10-20 14:03] MED LIST changes: +BIOTIN5 MG PO
== END | disposition home or self-care (01) ==
LOC: D.US 14:03
DX: I82.403 Acute embolism and thrombosis of unspecified deep veins of lower extremity, bilateral (principal)

== ENCOUNTER → 2017-11-12 05:38 | Outpatient (CLI) | payer BC ==
[~2017-11-12] VITALS: Ht 165.1 cm; Wt 74.5 kg
--- NOTE | ~2017-11-12 | HEMODYNAMI ---
PATIENT:SKYLAR HAMPTON MEDICAL RECORD: [id number] : 69 [id number] ADMISSION DATE: 11/12/17 Generatedon:11/12/201711:44 Patient name: SKYLAR HAMPTON Patient #: [id number] SSN: : 1965 Date of study: 11/12/2017 Page: Of Hemodynamic Procedure Report Patient Data Patient Demographics Procedure consent was obtained First Name: SKYLAR Gender: Female Last Name: MEMO : 1965 Middle Initial: NIRALI Harris Age: 52 year(s) Patient #: [id number] Race: Unknown Additional ID: [id number] Contact details [address]: [address] [place] [address] State: [place] City: [place] Zip code: [address] Past Medical History Allergies: No known allergies Admission Admission Data Admission Date: 11/12/2017 Admission Time: 5:38 Weight (lbs.): 164 Weight (kg.): 74.39 Procedure Procedure Types Cath Procedure Peripheral Cath Diagnostic Procedure Cath Peripheral Venography Procedure Description Procedure Date Procedure Date: 11/12/2017 Procedure Start Time: 8:30 Procedure Staff Name Function Josh Greene MD Performing Physician Alka Donohue RT Railroad Conductor Alka Donohue RT Monitor Gisselle Shearer RN Nurse Wanda Knapp RN Nurse Raúl Tovar RT Scrub Procedure Data Cath Procedure Fluoroscopy Diagnostic fluoroscopy Total fluoroscopy Time: time: 76.6 min 76.6 min Diagnostic fluoroscopy Total fluoroscopy dose: dose: 5093 mGy 5093 mGy Contrast Material Contrast Material Type Amount (ml) Isovue 300 85 Diagnostic catheters Device Type Used For End Catheter Placement Merit ULTRA BOLUS FLUSH 5Fr 65CM catheter ([id number]) Cook HN5 5F/100CM catheter ([id number]) Angiodynamics SOS OMNI 2 NON B 5FR 65CM catheter ([id number]) Angiodynamics SOS OMNI 2 NON B 5FR 65CM catheter ([id number]) Procedure Medications Medication Administration Route Dosage Lidocaine 1% added to field 20 Heparin Flush Bag added to field 2 bags (1000units/500ml NS) Oxygen etCO2 Nasal cannula 3 l/min Versed I.V. 2 mg Fentanyl I.V. 50 mcg Fentanyl I.V. 50 mcg Versed I.V. 1 mg Fentanyl I.V. 50 mcg Versed I.V. 1 mg Fentanyl I.V. 50 mcg Versed I.V. 2 mg Fentanyl I.V. 50 mcg Fentanyl I.V. 50 mcg Heparin Flush Bag added to field 1 bags (1000units/500ml NS) Lidocaine 1% added to field 20 Hemodynamics Rest Pre Cath Intra NCS Post Cath Vital Signs Time Heart Resp SPO2 etCO2 NIBP (mmHg) Rhythm Pain Status Sedation Rate (ipm) (%) (mmHg) Level (bpm) 8:28:17 70 12 99 28.3 137/74(101) NSR 0 (11) , No 10(A) pain 8:32:33 69 13 100 32.8 125/72(101) NSR 0 (11) , No 10(A) pain 8:36:49 68 17 100 38 97/75(83) NSR 0 (11) , No 8(A) pain 8:40:59 64 13 100 42.4 107/61(93) NSR 0 (11) , No 8(A) pain 8:45:11 64 12 100 42.4 99/65(89) NSR 0 (11) , No 8(A) pain 8:49:19 76 19 100 26.8 117/71(91) NSR 0 (11) , No 8(A) pain 8:53:18 35.7 No Cuff NSR 0 (11) , No 8(A) pain 8:57:51 67 16 99 33.5 100/62(91) NSR 0 (11) , No 8(A) pain 9:02:01 64 11 99 34.2 117/67(96) NSR 0 (11) , No 8(A) pain 9:06:23 62 32 99 38 107/50(59) NSR 0 (11) , No 8(A) pain 9:10:35 64 10 100 41.7 104/63(80) NSR 0 (11) , No 8(A) pain 9:14:47 66 9 100 23.1 102/62(78) NSR 0 (11) , No 8(A) pain 9:19:01 63 8 99 44.7 97/57(77) NSR 0 (11) , No 8(A) pain 9:23:10 66 10 99 45.4 97/59(77) NSR 0 (11) , No 8(A) pain 9:27:20 70 8 100 45.4 100/58(63) NSR 0 (11) , No 8(A) pain 9:31:32 67 22 100 37.2 105/59(79) NSR 0 (11) , No 8(A) pain 9:35:42 63 11 100 44.6 111/69(93) NSR 0 (11) , No 8(A) pain 9:39:54 62 10 100 46.9 107/72(91) NSR 0 (11) , No 8(A) pain 9:44:08 64 10 100 0.7 111/64(91) NSR 0 (11) , No 8(A) pain 9:48:22 58 11 100 10.4 113/63(86) SB 0 (11) , No 8(A) pain 9:52:38 58 12 100 8.9 115/64(95) SB 0 (11) , No 8(A) pain 9:56:52 56 15 99 41.7 122/71(104) SB 0 (11) , No 8(A) pain 10:01:08 56 13 98 43.2 122/71(90) SB 0 (11) , No 8(A) pain 10:05:22 58 12 100 40.2 118/72(96) SB 0 (11) , No 8(A) pain 10:09:38 56 15 99 43.2 115/73(95) SB 0 (11) , No 8(A) pain 10:13:52 56 14 100 43.3 125/72(105) SB 0 (11) , No 8(A) pain 10:18:08 57 12 99 23.8 121/68(98) SB 0 (11) , No 8(A) pain 10:22:24 57 14 98 43.2 128/73(102) SB 0 (11) , No 8(A) pain 10:26:40 60 14 99 40.2 128/69(82) NSR 0 (11) , No 8(A) pain 10:30:56 64 19 100 41.7 104/69(83) NSR 0 (11) , No 8(A) pain 10:35:06 59 20 99 36.5 110/69(89) SB 0 (11) , No 8(A) pain 10:39:18 65 28 96 40.2 122/68(96) NSR 0 (11) , No 8(A) pain 10:43:30 71 17 96 38.7 122/81(98) NSR 0 (11) , No 8(A) pain 10:47:46 59 20 99 38.7 127/72(100) SB 0 (11) , No 8(A) pain 10:52:00 60 13 99 14.9 117/73(86) NSR 0 (11) , No 8(A) pain 10:56:12 62 21 100 17.8 108/68(89) NSR 0 (11) , No 8(A) pain 11:00:26 60 13 100 14.1 106/63(89) NSR 0 (11) , No 8(A) pain 11:04:36 56 26 100 42.5 113/69(89) SB 0 (11) , No 8(A) pain 11:08:48 59 15 100 21.6 112/71(85) SB 0 (11) , No 8(A) pain 11:13:00 57 31 100 35.8 119/72(83) SB 0 (11) , No 8(A) pain 11:17:16 58 13 100 1.4 114/67(96) SB 0 (11) , No 8(A) pain 11:21:28 57 14 100 39.5 130/76(104) SB 0 (11) , No 8(A) pain 11:25:44 56 27 100 39.5 127/78(92) SB 0 (11) , No 8(A) pain 11:29:58 59 32 100 36.5 130/81(100) SB 2 (11) , 8(A) Uncomfortable 11:34:14 62 13 100 44.8 134/80(97) SB 0 (11) , No 8(A) pain 11:38:26 62 11 100 44.8 121/81(93) SB 0 (11) , No 8(A) pain 11:42:42 61 11 100 46.2 123/70(88) SB 0 (11) , No 8(A) pain Medications Time Medication Route Dose Verified Delivered Reason Notes Ef fectiveness by by 8:02:20 Lidocaine 1% added 20ml Wanda Moreno for local to vial Ra Greene MD anesthetic field 8:02:38 Heparin Flush added 2 Wanda Moreno used for Bag to bags Ra Greene MD procedure (1000units/500ml field NS) 8:03:08 Oxygen etCO2 3 Wanda Wanda used for Nasal l/min Ra Knapp RN procedure cannula 8:35:20 Versed I.V. 2 mg Josh Hauserine for Do MD Ra Naidu RN sedation intermittently @ 8:41:20 8:35:33 Fentanyl I.V. 50 Josh Hauserine for Do MD Ra Ward RN sedation intermittently @ 8:41:18 8:44:45 Fentanyl I.V. 50 Josh Hauserine for Do MD Ra Ward RN sedation intermittently @ 9:09:50 8:46:42 Versed I.V. 1 mg Josh Muñoz for Do MD Ra Naidu RN sedation intermittently @ 9:09:47 9:05:23 Fentanyl I.V. 50 Josh Hauserine for Do MD Ra Ward RN sedation intermittently @ 9:24:50 9:13:30 Versed I.V. 1 mg Josh Muñoz for MD Ra Rosenberg RN sedation sleeping @ 9:24:44 9:13:41 Fentanyl I.V. 50 Josh Hauserine for MD Ra Patel RN sedation sleeping @ 9:24:35 10:49:38 Versed I.V. 2 mg Josh Muñoz for MD Ra Rosenberg RN sedation sleeping @ 11:03:51 10:49:54 Fentanyl I.V. 50 Josh Hauserine for MD Ra Patel RN sedation sleeping @ 11:03:48 11:31:16 Fentanyl I.V. 50 Josh Muñoz for MD Ra Barone RN sedation 11:35:15 Heparin Flush added 1 Josh Moreno Bag to bags MD Ramona Greene MD (1000units/500ml field NS) 11:35:28 Lidocaine 1% added 20ml Josh Josh to vial MD Ramona Greene MD field Procedure Log Time Note 7:47:03 Patient Weight : 164 lbs 7:47:38 Use device set IR Diagnostic 7:51:38 DOC .035 wire (U28503) opened to sterile field. 7:51:44 Micropuncture VSI 4FR kit opened to sterile field. 7:51:45 Sterile Angiographic Pack opened to sterile field. 7:51:47 Bag Decanter (2002S) opened to sterile field. 7:58:08 Time tracking: Regular hours 7:58:25 Plan of Care:Hemodynamics will remain stable., Cardiac rhythm will remain stable., Comfort level will be maintained., Respiratory function will remain adequate., Patient/ family verbilizes understanding of procedure., Procedure tolerated without complication., Recovers from procedure without complications.. 7:58:28 Patient arrives emergently. 7:58:37 Patient received from Outpatients to IR Alert and oriented. Tansferred to table in Prone position. 7:58:43 Signed procedure consent form obtained from patient. 7:58:50 H&P Date Dictated: 11/12/2017 Within 30 days and on chart.. 7:58:52 Pre-procedure instructions explained to patient. 7:58:52 Pre-op teaching completed and patient verbalized understanding. 7:58:55 Family in waiting room. 7:58:57 Patient NPO since Midnight. 7:59:00 - 8:00:00 Is the patient allergic to Iodine/contrast media? No. 8:00:03 Is patient on blood thinner?Yes 8:00:07 ACC The patient was administered the following blood thiners within the last 24 hours: Coumadin 8:00:11 Patient diabetic? No. 8:00:17 - 8:00:18 ----Pre-sedation anethsthesia assessment.---- 8::22 Previous problem with sedation/anesthesia? No ? 8:00:24 Snore? No 8::27 Sleep apnea? No 8::29 Deviated septum? No ::31 Opens mouth fully? Yes 8::36 Sticks out tongue? Yes 8::39 Airway obstruction? No ? ::49 Dentures? No ? 8:00:53 - 8:01:35 IV started by Gisselle Shearer RN inleft forearm with a 22 gauge IV catheter with D5/.45%NaCl at KVO. 8:01:47 - 8:02:20 Lidocaine 1% 20ml vial added to field was administered by Josh Greene MD; for local anesthetic; 8:02:38 Heparin Flush Bag (1000units/500ml NS) 2 bags added to field was administered by Josh Greene MD; used for procedure; 8:03:08 Oxygen 3 l/min etCO2 Nasal cannula was administered by Wanda Knapp RN; used for procedure; 8:03:10 - 8:04:11 Popliteal region area was prepped with chlora-prep and draped in steril e fashion 8:20:25 SHEATH 5FR [place] (ASV437) opened to sterile field. 8:20:29 ACIST Hand Control (76285) opened to sterile field. 8:20:42 ACIST Syringe (78547) opened to sterile field. 8:20:57 ACIST Manifold (47860) opened to sterile field. 8:27:18 Vital chart was started 8:28:16 Physician arrived 8:29:36 --------ALL STOP TIME OUT------ 8:30:54 Full Disclosure recording started 8:30:57 Local anesthetic to left popliteal vein with Lidocaine 1% by Josh Greene MD.INITIAL ACCESS ONLY 8:35:20 Versed 2 mg I.V. was administered by Wanda Knapp RN; for sedation; 8:35:33 Fentanyl 50 mcg I.V. was administered by Wanda Knapp RN; for sedation; 8:41:18 Effectiveness of Fentanyl delivered @ 8:35:33 is: Dozing intermittently 8:41:20 Effectiveness of Versed delivered @ 8:35:20 is: Dozing intermittently 8:43:53 Procedure started. 8:44:45 Fentanyl 50 mcg I.V. was administered by Wanda Knapp RN; for sedation; 8:46:25 Venous access obtained using ultrasound guidance. 8:46:42 Versed 1 mg I.V. was administered by Wanda Knapp RN; for sedation; 8:49:01 Tegaderm 4 x 4 (1626W) opened to sterile field. 8:49:13 Venogram performed 8:51:11 sheath removed from popliteal lt vein. patient flipped over to supine position and rt ij prepped for further imaging. 9:05:23 Fentanyl 50 mcg I.V. was administered by Wanda Knapp RN; for sedation; 9:09:43 Right neck area was prepped with chlora-prep and draped in sterile fashion 9:09:47 Effectiveness of Versed delivered @ 8:46:42 is: Dozing intermittently 9:09:50 Effectiveness of Fentanyl delivered @ 8:44:45 is: Dozing intermittently 9:13:30 Versed 1 mg I.V. was administered by Wanda Knapp RN; for sedation; 9:13:41 Fentanyl 50 mcg I.V. was administered by Wanda Knapp RN; for sedation; 9:18:32 TUBING Contrast Injection High Pressure (DPE430Q) opened to sterile field. 9:23:34 A Hailo ULTRA BOLUS FLUSH 5Fr 65CM catheter ([id number]) was advanced over the wire and used for . 9:23:36 GLIDE CATHETER 5FR ANGLED 65cm (CG507) opened to sterile field. 9:23:37 GLIDE WIRE ANGLE 180cm (ED5811) opened to sterile field. 9:24:01 TORQUE DEVICE PLASTIC .038 ( TD01) opened to sterile field. 9:24:35 Effectiveness of Fentanyl delivered @ 9:13:41 is: Mostly sleeping 9:24:44 Effectiveness of Versed delivered @ 9:13:30 is: Mostly sleeping 9:24:50 Effectiveness of Fentanyl delivered @ 9:05:23 is: Dozing intermittently 9:31:25 Venogram performed 9:35:08 DILATOR, VESSEL 10/20 opened to sterile field. 9:35:09 DILATOR, VESSEL 8/20 opened to sterile field. 9:35:10 SAUER 180cm wire (A46961) opened to sterile field. 9:52:22 GLIDE WIRE ANGLE 180cm (WC4886) opened to sterile field. 9:54:13 St Hema 12FR. 30CM sheath opened to sterile field. 9:54:16 A [place] HN5 5F/100CM catheter (O59979) was advanced over the wire and used for . 9:54:20 A AngiodynamWorldWinger OMNI 2 NON B 5FR 65CM catheter ([id number]) was advanced over the wire and used for . 9:55:52 GLIDE WIRE ANGLE 260cm (EM5882) opened to sterile field. 9:57:59 SNARE Filter Retreival Kit (SRK20) opened to sterile field. 9:58:28 SNARE Filter Retreival Kit (SRK20) opened to sterile field. 10:34:11 GLIDE WIRE ANGLE 180cm (OK2937) opened to sterile field. 10:48:43 A AngiodynamZiploop SOS OMNI 2 NON B 5FR 65CM catheter ([id number]) was advanced over the wire and used for . 10:49:38 Versed 2 mg I.V. was administered by Wanda Ra RN; for sedation; 10:49:54 Fentanyl 50 mcg I.V. was administered by Wanda Knapp RN; for sedation; 11:03:48 Effectiveness of Fentanyl delivered @ 10:49:54 is: Mostly sleeping 11:03:51 Effectiveness of Versed delivered @ 10:49:38 is: Mostly sleeping 11:06:09 ANABELLA .035 145 glide wire (R63867) opened to sterile field. 11:31:16 Fentanyl 50 mcg I.V. was administered by Wanda Knapp RN; for sedation; 11:34:36 Procedure ended.(Physican Out) 11:35:15 Heparin Flush Bag (1000units/500ml NS) 1 bags added to field was administered by Josh Greene MD; ; 11:35:28 Lidocaine 1% 20ml vial added to field was administered by Josh Greene MD; ; 11:39:13 Fluoroscopy time 76.60 minutes. 11:39:19 Fluoroscopy dose: 5093 mGy 11:39:19 Flurop Dose total: 5093 11:39:34 Contrast amount:Isovue 300 85ml. 11:43:31 Procedure and supply charges have been captured, reviewed, submitted an d are correct. 11:43:41 Report given to Outpatients. 11:44:01 Patient transfered to Outpatients with Stretcher. 11:44:24 Vital chart was stopped Device Usage Item Name Manufacture Quantity Catalog Number Hospital Part Current M inimal Lot# / Charge Number Stock Stock Serial# Code DOC .035 wire Cook Medical 1 [id number] 027184 [id number] 5 [id number] ([id number]) Micropuncture VSI VASCULAR 1 7266V 714773 798045 5 VSI 4FR kit SOLUTIONS Sterile Cardinal 1 [id number] 231043 716200 5 Angiographic Health Pack Bag Decanter Microtek 1 270386 40039 875722 5 () Medical Inc. SHEATH 5FR Terumo 1 UJG962 696562 578734 836518 4 0 [place] (YML250) ACIST Manifold Acist Medical 1 96888 013650 014000 025248 5 (92553) Systems Inc ACIST Hand Acist Medical 1 24684 229599 189670 450604 5 Control Systems Inc (35058) ACIST Syringe Acist Medical 1 51703 584059 612291 065590 2 0 (24401) Systems Inc Tegaderm 4 x 4 3M 1 1626W 875169 874555 753765 5 (1626W) TUBING [facility] 1 [id number] 302438 773541 316665 5 Contrast Injection High Pressure (SGQ762D) Merit ULTRA [facility] Medical 1 [id number] 486502 477014 5 BOLUS FLUSH 5Fr 65CM catheter ([id number]) GLIDE CATHETER Terumo 1 CG507 075172 294981 5 5FR ANGLED 65cm (CG507) GLIDE WIRE Terumo 3 FL5144 426434 156101 704293 5 ANGLE 180cm (YJ8471) TORQUE DEVICE [place] 1 TD01 963709 227923 355552 5 PLASTIC .038 ( Scientific TD01) DILATOR, [facility] 1 J30621 217503 11694 530331 5 VESSEL 10/20 DILATOR, [facility] 1 A74587 850103 09195 261449 5 VESSEL 8/20 SAUER 180cm [facility] 1 S05046 430557 181426 5 [id number] wire (Y09374) St Hema 12FR. St Hema 1 515043 950748 093701 5 30CM sheath Cook HN5 [facility] 1 Q28399 080861 407481 2 5F/100CM catheter (E56975) Angiodynamics Angiodynamics 2 78128907 056621 06694 086462 5 SOS OMNI 2 NON B 5FR 65CM catheter (89580218) GLIDE WIRE Terumo 1 RZ0512 448794 292221 258474 5 ANGLE 260cm (QJ2530) SNARE Filter Bard 1 SRK20 155129 100225 5 [facility]reival Kit (SRK20) [facility] Y37450 420409 930638 212588 5 [id number] .035 145 glide wire (H02448) Signature Audit [place] Stage Time Signature Unsigned Intra-Procedure 11/12/2017 Alka Donohue 11:44:20 AM RT(R) Signatures Monitor : Alka Donohue RT Signature : Date : Time : [facility] [address] [place] [address]
[2017-11-12 06:28] VITALS: BP 123/79; Ht 165.1 cm; Wt 74.5 kg
[2017-11-12 06:35] LABS: BASOPHILS 0 % (0-2); EOSINOPHILS 1.2 % (0-7); HEMATOCRIT 37.3 % (36.0-48.0); HEMOGLOBIN 12.3 g/dL (12-16); LYMPHOCYTES 47.4 % (15-50); MCH 29.6 pg (26.0-34.0); MCV 89.9 fL (80.0-100.0); MEAN PLATELET VOLUME 10.4 fL (7.4-10.4); MONOCYTES 9.9 % (2-11); NEUTROPHILS 41.5 % (40-80); PLATELET COUNT 170 10x3/uL (130-400); RBC 4.15 10x6/uL (4.00-5.40); RDW 12.9 % (11.5-14.5); WBC 3.4 10x3/uL (4.8-10.8)
[2017-11-12 06:46] LABS: ANION GAP 10.4 mmol/L (8-16); CALCIUM 8.2 mg/dL (8.5-10.1); CARBON DIOXIDE 29.4 mmol/L (21.0-32.0); CREATININE - SERUM 0.9 mg/dL (0.6-1.3); POTASSIUM - SERUM 3.8 mmol/L (3.5-5.1)
[2017-11-12 06:55] LABS: INR 1.5 (0.85-1.17); PROTIME 17.6 SECONDS (11.6-15.0)
[2017-11-12 06:56] LABS: APTT 35.3 SECONDS (22.8-39.4)
== END | disposition home or self-care (01) ==
LOC: D.SP 05:38 → D.RAD 11:00 → D.SP 11:00
PROVIDERS: General Practice
DX: I82.403 Acute embolism and thrombosis of unspecified deep veins of lower extremity, bilateral (principal); Z79.01 Long term (current) use of anticoagulants; Z01.812 Encounter for preprocedural laboratory examination

== ENCOUNTER 2018-01-20 08:52 | Outpatient (CLI) | payer BC ==
[~2018-01-20] VITALS: Ht 165.1 cm; Wt 81.8 kg
--- NOTE | ~2018-01-20 | HEMODYNAMI ---
PATIENT:SKYLAR HAMPTON MEDICAL RECORD: [id number] : 69 LOCATION:[facility] ADMISS[facility] DATE: 01/20/18 Generatedon:01/20/201812:46 Patient name: SKYLAR HAMPTON Patient #: [id number] SSN: : 1965 Date of study: 01/20/2018 Page: Of Hemodynamic Procedure Report Patient Data Patient Demographics Procedure consent was obtained First Name: SKYLAR Gender: Female Last Name: MEMO : 1965 Middle Initial: NIRALI aHrris Age: 52 year(s) Patient #: [id number] Race: Unknown Additional ID: [id number] Contact details Address: [address] [place] [address] State: [place] City: [place] Zip code: [address] Past Medical History Allergies: No known allergies Admission Admission Data Admission Date: 01/20/2018 Admission Time: 8:52 Height (in.): 65 BSA: 1.89 (m2) Height (cm.): 165.1 BMI: 29.95 (kg/m2) Weight (lbs.): 180 Weight (kg.): 81.65 Procedure Procedure Types Cath Procedure Peripheral Cath Diagnostic Procedure Cath Peripheral Venography IVC/SVC IVC Filter Retreival Procedure Description Procedure Date Procedure Date: 01/20/2018 Procedure Start Time: 11:09 Procedure Staff Name Function Josh Hendrickson MD Performing Physician Alka Donohue RT Managed Services Sales Consultant Alka Donohue RT Monitor Wanda Knapp RN Nurse Gisselle Shearer RN Nurse Raúl Tovar RT Scrub Procedure Data Cath Procedure Fluoroscopy Diagnostic fluoroscopy Total fluoroscopy Time: time: 24.2 min 24.2 min Diagnostic fluoroscopy Total fluoroscopy dose: 999 dose: 999 mGy mGy Contrast Material Contrast Material Type Amount (ml) Isovue 300 85 Procedure Medications Medication Administration Route Dosage Heparin Flush Bag added to field 3 bags (1000units/500ml NS) Lidocaine 1% added to field 20 Oxygen NC 3 l/min Versed I.V. 1 mg Fentanyl I.V. 50 mcg Versed I.V. 1 mg Fentanyl I.V. 50 mcg Versed I.V. 1 mg Fentanyl I.V. 50 mcg Versed I.V. 1 mg Fentanyl I.V. 50 mcg Fentanyl I.V. 50 mcg Versed I.V. 1 mg Hemodynamics Rest BSA: 1.89 (m2) O2 Consumption: Estimated: 182.51 (ml/min) O2 Consumption indexed : Estimated:96.57 (ml/min/m) Heart Rate: 66 (bpm) Snapshots Pre Cath Intra NCS Post Cath Vital Signs Time Heart Resp SPO2 etCO2 NIBP (mmHg) Rhythm Pain Sedation Rate (ipm) (%) (mmHg) Status Level (bpm) 10:51:01 67 22 100 34.4 135/59(66) NSR 0 (11) 10(A) , No pain 10:56:00 64 14 100 27.7 Measuring NSR 0 (11) 10(A) , No pain 10:56:18 66 6 99 32.9 60/25(50) NSR 0 (11) 10(A) , No pain 11:00:14 60 18 100 32.9 80/65(76) NSR 0 (11) 10(A) , No pain 11:05:05 66 16 100 36.7 129/71(106) NSR 0 (11) 10(A) , No pain 11:09:27 76 19 100 30.7 128/72(106) NSR 0 (11) 10(A) , No pain 11:13:49 61 12 100 35.9 127/67(102) NSR 0 (11) 8(A) , No pain 11:18:16 63 15 100 41.1 119/61(86) NSR 0 (11) 8(A) , No pain 11:22:36 68 16 100 40.4 126/64(99) NSR 0 (11) 8(A) , No pain 11:26:56 62 15 100 40.5 127/65(95) NSR 0 (11) 8(A) , No pain 11:31:16 67 17 100 41.2 122/65(98) NSR 0 (11) 8(A) , No pain 11:35:34 63 11 100 37.4 125/58(83) NSR 0 (11) 8(A) , No pain 11:39:54 69 13 98 44.2 112/60(87) NSR 0 (11) 8(A) , No pain 11:44:10 61 14 100 43.4 119/70(96) NSR 0 (11) 8(A) , No pain 11:48:30 58 13 100 44.9 116/60(85) NSR 0 (11) 8(A) , No pain 11:52:50 65 11 100 46.4 105/59(80) NSR 0 (11) 8(A) , No pain 11:57:04 61 11 99 44.9 110/57(87) NSR 0 (11) 8(A) , No pain 12:01:21 66 10 100 17.2 107/60(85) NSR 0 (11) 8(A) , No pain 12:05:34 63 11 100 46.4 116/62(93) NSR 0 (11) 8(A) , No pain 12:09:51 60 12 100 45.7 126/66(100) NSR 0 (11) 8(A) , No pain 12:14:09 57 12 100 40.4 131/69(106) NSR 0 (11) 8(A) , No pain 12:18:23 57 12 100 39.7 120/63(98) NSR 0 (11) 8(A) , No pain 12:22:36 65 10 100 45.7 109/67(87) NSR 0 (11) 8(A) , No pain 12:26:53 66 11 100 45.7 103/54(81) NSR 0 (11) 8(A) , No pain 12:31:50 62 13 100 44.9 121/72(91) NSR 0 (11) 10(A) , No pain 12:36:08 65 15 100 43.4 116/67(82) NSR 0 (11) 10(A) , No pain 12:40:24 65 14 100 39.7 120/67(97) NSR 0 (11) 10(A) , No pain 12:44:44 65 15 99 32.9 124/60(70) NSR 0 (11) 10(A) , No pain Medications Time Medication Route Dose Verified Delivered Reason Notes Effec tiveness by by 10:52:05 Heparin Flush added 3 Josh Moreno used for Bag to bags Ramona Hendrickson MD procedure (1000units/500ml field NS) 10:52:18 Lidocaine 1% added 20ml Josh Josh used for to vial Ramona Hendrickson MD procedure field 10:52:36 Oxygen NC 3 Josh Gisselle used for l/min Manfred Hendrickson RN procedure 11:12:34 Versed I.V. 1 mg Josh Gisselle for Nuris Hendricksonr RN sedation 11:12:47 Fentanyl I.V. 50 Josh Gisselle for mcg Destineya, Manfred RN sedation 11:32:59 Versed I.V. 1 mg Josh Gisselle for Ramona Manfred RN sedation 11:33:08 Fentanyl I.V. 50 Josh Gisselle for mcg Ramona, Manfred RN sedation 11:58:46 Versed I.V. 1 mg Josh Gisselle for Nuris Hendricksonr RN sedation 11:58:53 Fentanyl I.V. 50 Josh Gisselle for mcg Nuris Hendricksonr RN sedation 12:11:20 Versed I.V. 1 mg Josh Gisselle for Nuris Hendricksonr RN sedation 12:11:31 Fentanyl I.V. 50 Josh Gisselle for mcg Nuris Hendricksonr RN sedation 12:20:58 Fentanyl I.V. 50 Josh Gisselle for mcg Ramona Manfred RN sedation 12:21:05 Versed I.V. 1 mg Josh Gisselle for Ramona Manfred RN sedation Procedure Log Time Note 10:11:58 Use device set IR Diagnostic 10:13:12 Patient Height : 65 inches 10:13:17 Patient Weight : 180 lbs 10:29:39 TUBING Contrast Injection High Pressure (YHU568F) opened to sterile field. 10:29:40 Micropuncture VSI 4FR kit opened to sterile field. 10:29:41 Sauer 180 wire ([id number]) opened to sterile field. 10:29:44 Tegaderm 4 x 4 (1626W) opened to sterile field. 10:29:45 Sterile Angiographic Pack opened to sterile field. 10:29:46 Bag Decanter (2002S) opened to sterile field. 10:29:47 ACIST Manifold (66751) opened to sterile field. 10:29:48 ACIST Hand Control (31497) opened to sterile field. 10:29:49 ACIST Syringe (07891) opened to sterile field. 10:29:51 - 10:29:54 Time tracking: Regular hours (M-F 7:00 - 5:00) 10:30:29 Plan of Care:Hemodynamics will remain stable., Cardiac rhythm will remain stable., Comfort level will be maintained., Respiratory function will remain adequate., Patient/ family verbilizes understanding of procedure., Procedure tolerated without complication., Recovers from procedure without complications.. 10:30:37 Patient received from Outpatients to IR Alert and oriented. Tansferred to table in Supine position. 10:30:42 Correct patient and procedure confirmed by team. 10:30:45 Signed procedure consent form obtained from patient. 10:30:51 H&P Date Dictated: 01/20/2018 Within 30 days and on chart.. 10:30:54 Pre-procedure instructions explained to patient. 10:30:55 Pre-op teaching completed and patient verbalized understanding. 10:30:57 Family in waiting room. 10:31:02 Patient NPO since Midnight. 10:31:12 Patient allergic to No known allergies 10:31:18 Is the patient allergic to Iodine/contrast media? No. 10:33:34 Is patient on blood thinner?Yes 10:33:41 ACC The patient was administered the following blood thiners within the last 24 hours: Coumadin 10:33:48 Patient diabetic? No. 10:33:53 - 10:33:55 ----Pre-sedation anethsthesia assessment.---- 10:33:59 Previous problem with sedation/anesthesia? No ? 10:34:03 Snore? No 10:34:06 Sleep apnea? No 10:34:09 Deviated septum? No 10:34:10 Opens mouth fully? Yes 10:34:13 Sticks out tongue? Yes 10:34:31 Airway obstruction? No hx of blood clot in lung 10:34:40 Dentures? No ? 10:34:51 IV patent on arrival in left hand with D5/.45%NaCl at O. 10:35:12 Right neck area was prepped with chlora-prep and draped in sterile fashion 10:35:22 Left groin area was prepped with chlora-prep and draped in sterile fashion 10:49:19 ECG and BP/O2 sat monitors applied to patient. 10:49:21 Vital chart was started 10:49:22 Baseline sample Acquired. 10:49:24 Full Disclosure recording started 10:49:24 - 10:52:05 Heparin Flush Bag (1000units/500ml NS) 3 bags added to field was administered by Josh Hendrickson MD; used for procedure; 10:52:18 Lidocaine 1% 20ml vial added to field was administered by Josh Hendrickson MD; used for procedure; 10:52:36 Oxygen 3 l/min NC was administered by Gisselle Shearer RN; used for procedure; 11:07:28 Physician arrived 11:07:43 SHEATH 5FR [place] (XOP724) opened to sterile field. 11:09:25 --------ALL STOP TIME OUT------ 11:09:26 Final Timeout: patient, procedure, and site verified with staff and physician. All members of the team are in agreement. 11:09:36 Procedure started. 11:09:47 Local anesthetic to left femoral vein with Lidocaine 1% by Josh Hendrickson MD.INITIAL ACCESS ONLY 11:10:43 Venous access obtained using ultrasound guidance. 11:12:34 Versed 1 mg I.V. was administered by Gisselle Manfred RN; for sedation; 11:12:47 Fentanyl 50 mcg I.V. was administered by Gisselle Shearer RN; for sedation ; 11:18:59 Angiodynamics Omniflush 5Fr 65cm ([id number]) opened to sterile field. 11:23:27 GLIDE WIRE ANGLE 180cm (GE6496) opened to sterile field. 11:23:28 GLIDE CATHETER 5FR ANGLED 65cm (CG507) opened to sterile field. 11:23:38 TORQUE DEVICE PLASTIC .038 ( TD01) opened to sterile field. 11:26:06 Venogram performed 11:27:41 GLIDE WIRE Angled Super Stiff 180cm (RB6721) opened to sterile field. 11:30:59 SAUER 260 wire (L48240) opened to sterile field. 11:32:59 Versed 1 mg I.V. was administered by Gisselle Shearer RN; for sedation; 11:33:08 Fentanyl 50 mcg I.V. was administered by Gisselle Shearer RN; for sedation ; 11:36:53 lidocaine 1% given by dr. hendrickson at 2nd prep site of right IJ 11:40:24 DILATOR, VESSEL 7/20 opened to sterile field. 11:41:22 SNARE GOOSENECK 20MM LOOP 120C opened to sterile field. 11:41:44 COOK 9FR 45 CM ANLO SHEATH opened to sterile field. 11:56:17 COOK 12FR 45 CM ANLO SHEATH opened to sterile field. 11:56:18 COOK 16FR 45 CM SHEATH opened to sterile field. 11:58:46 Versed 1 mg I.V. was administered by Gisselle Shearer RN; for sedation; 11:58:53 Fentanyl 50 mcg I.V. was administered by Gisselle Shearer RN; for sedation ; 12:11:20 Versed 1 mg I.V. was administered by Gisselle Shearer RN; for sedation; 12:11:31 Fentanyl 50 mcg I.V. was administered by Gisselle Shearer RN; for sedation ; 12:20:58 Fentanyl 50 mcg I.V. was administered by Gisselle Shearer RN; for sedation ; 12:21:05 Versed 1 mg I.V. was administered by Gisselle Shearer RN; for sedation; 12:30:38 ivc filter removed 12:30:55 Procedure ended.(Physican Out) 12:31:17 Fluoroscopy time 24.20 minutes. 12:31:22 Fluoroscopy dose: 999 mGy 12:31:22 Flurop Dose total: 999 12:31:34 Contrast amount:Isovue 300 85ml. 12:32:00 Procedure and supply charges have been captured, reviewed, submitted an d are correct. 12:46:15 Vital chart was stopped Device Usage Item Name Manufacture Quantity Catalog Hospital Part Current Minim al Lot# / Number Charge Number Stock Stock Serial# Code TUBING Mer[employer] 1 [id number] 829946 710132 5 Contrast Injection High Pressure ([id number]) Micropuncture VSI VASCULAR 1 7266V 907617 449673 5 VSI 4FR kit SOLUTIONS Sauer 180 [employer] 1 D60230 373674 234643 6171095 5 1396168 wire (R48014) Tegaderm 4 x 3M 1 1626W 682745 419675 125985 5 4 (1626W) Sterile Cardinal 1 [id number] 019433 998248 5 Angiographic Health Pack Bag Decanter Microtek 1 2001S 394879 52549 002808 5 (2001S) Medical Inc. ACIST Acist Medical 1 07464 602112 493296 992213 5 Manifold Systems Inc (78320) ACIST Hand [employer]ist [employer] 1 38863 008202 117555 103520 5 Control Systems Inc (96075) ACIST Syringe [employer]ist [employer] 1 73525 235042 095165 092170 20 (10719) Systems Inc SHEATH 5FR Terumo 1 VXW358 222106 881273 466983 40 [place] (HSL460) Angiodynamics Angiodynamics 1 [id number] 391072 565078 561966 5 Omniflush 5Fr 65cm (42798791) GLIDE WIRE Terumo 1 BF1459 580453 937297 873124 5 ANGLE 180cm (GT0307) GLIDE Terumo 1 CG507 574794 576006 5 CATHETER 5FR ANGLED 65cm (CG507) TORQUE DEVICE [place] 1 TD01 457829 555542 114588 5 PLASTIC .038 Scientific ( TD01) GLIDE WIRE Terumo 1 KP7907 376875 272137 5 Angled Super Stiff 180cm (ZP9696) SAUER 260 [employer] 1 T87868 558438 92853 053563 5 [id number] wire (F21244) DILATOR, [employer] 1 Z40659 445332 93457 047965 5 1668777 VESSEL 7/20 SNARE Medtronic 1 ZQ1467 998551 008522 466657 5 GOOSENECK 20MM LOOP 120C COOK 12FR 45 [employer] 2 M12152 626466 149485 084892 5 [id number] CM ANLO SHEATH COOK 16FR 45 Cook [facility] 1 Q01928 215889 086388 945947 5 1078363 CM SHEATH Signature Audit [place] Stage Time Signature Unsigned Intra-Procedure 01/20/2018 Alka Donohue 12:46:11 PM RT(R) Signatures Monitor : Alka Donohue RT Signature : Date : Time : [id number] [place] [address]
[2018-01-20 09:08] LABS: HEMATOCRIT 37.3 % (36.0-48.0); HEMOGLOBIN 12.3 g/dL (12-16); MCH 30.1 pg (26.0-34.0); MCV 91.2 fL (80.0-100.0); MEAN PLATELET VOLUME 10.1 fL (7.4-10.4); PLATELET COUNT 182 10x3/uL (130-400); RBC 4.09 10x6/uL (4.00-5.40); RDW 12.7 % (11.5-14.5); WBC 2.7 10x3/uL (4.8-10.8)
[2018-01-20 09:45] VITALS: BP 133/77; Ht 165.1 cm; Wt 81.8 kg
[2018-01-20 09:47] LABS: ANION GAP 9.9 mmol/L (8-16); APTT 40.2 SECONDS (22.8-39.4); CALCIUM 8.9 mg/dL (8.5-10.1); CREATININE - SERUM 0.9 mg/dL (0.6-1.3); INR 1.72 (0.85-1.17); POTASSIUM - SERUM 3.9 mmol/L (3.5-5.1); PROTIME 19.6 SECONDS (11.6-15.0)
[2018-01-20 10:26] LABS: ANISOCYTOSIS OCC; EOSINOPHILS 1 % (0-7); LYMPHOCYTES 46 % (15-50); MONOCYTES 8 % (2-11); NEUTROPHILS 43 % (40-80); PLATELET ESTIMATE NORMAL
== END 2018-01-20 16:10 | disposition home or self-care (01) ==
LOC: D.SP 08:52
PROVIDERS: General Practice
DX: I82.409 Acute embolism and thrombosis of unspecified deep veins of unspecified lower extremity (principal); I26.99 Other pulmonary embolism without acute cor pulmonale; Z01.812 Encounter for preprocedural laboratory examination; D68.59 Other primary thrombophilia